=== PATIENT | male | born 1930 | race Caucasian/White ===

== ENCOUNTER → 2016-07-12 | Outpatient (CLI) | payer OTHER ==
[2016-07-12 12:14] LABS: BASO % 0.5 %; BASO ABS # 0.03 K/uL (0-0.2); COMPLETE YES; EOS % 7.6 %; HEMATOCRIT 35.2 % (42-52); IG% 0.3 %; LYMPH % 28.7 %; LYMPH ABS # 1.71 K/uL (1.2-3.4); MEAN CELL VOLUME 93.1 fL (80-100); MEAN CORPUSCULAR HEMOGLOBIN 32.8 pg (25-34); MEAN CORPUSCULAR HGB CONC 35.2 g/dl (32-36); MEAN PLATELET VOLUME 9.1 fL (7.4-10.4); MONO % 10.7 %; NEUT % 52.2 %; PLATELET COUNT 224 K/uL (130-400); RED BLOOD COUNT 3.78 M/uL (4.7-6.1); WHITE BLOOD COUNT 5.96 K/uL (4.8-10.8)
[2016-07-12 12:25] LABS: ALT/SGPT 17 U/L (12-78); BLOOD UREA NITROGEN 17 mg/dl (7-18); CARBON DIOXIDE 27 mmol/L (21-32); CHLORIDE 100 mmol/L (98-107); CHOLESTEROL 155 mg/dl (0-200); GLUCOSE 93 mg/dl (70-99); POTASSIUM 3.4 mmol/L (3.5-5.1); SODIUM 137 mmol/L (136-145); TRIGLYCERIDES 49 mg/dl (0-150); VERY LOW DENSITY LIPOPROT CALC 10 mg/dl
[2016-07-12 12:36] LABS: ALKALINE PHOSPHATASE 79 U/L (45-117); AST/SGOT 16 U/L (15-37); HDL CHOLESTEROL 79 mg/dl; LDL CHOLESTEROL CALCULATED 66 mg/dl
[2016-07-12 12:48] LABS: CALCIUM 9.9 mg/dl (8.5-10.1)
[2016-07-12 12:49] LABS: ESTIMATED AVERAGE GLUCOSE 120 mg/dl; HA1C FLAG Normal (Normal)
== END | disposition home or self-care (01) ==
LOC: C.LABBFT 08:32
PROVIDERS: ATTEND Internal Medicine Pulmonary Disease
DX: I10 Essential (primary) hypertension (principal); E11.9 Type 2 diabetes mellitus without complications

== ENCOUNTER → 2017-01-11 | Outpatient (CLI) | payer OTHER ==
[2017-01-11 12:17] LABS: BASO % 0.3 %; BASO ABS # 0.02 K/uL (0-0.2); COMPLETE YES; EOS % 5.9 %; HEMATOCRIT 33.7 % (42-52); IG% 0.2 %; LYMPH % 25.7 %; LYMPH ABS # 1.47 K/uL (1.2-3.4); MEAN CELL VOLUME 92.8 fL (80-100); MEAN CORPUSCULAR HEMOGLOBIN 33.1 pg (25-34); MEAN CORPUSCULAR HGB CONC 35.6 g/dl (32-36); MEAN PLATELET VOLUME 9.1 fL (7.4-10.4); MONO % 9.2 %; NEUT % 58.7 %; PLATELET COUNT 212 K/uL (130-400); RED BLOOD COUNT 3.63 M/uL (4.7-6.1); WHITE BLOOD COUNT 5.73 K/uL (4.8-10.8)
[2017-01-11 12:39] LABS: ALT/SGPT 18 U/L (12-78); AST/SGOT 20 U/L (15-37); BLOOD UREA NITROGEN 21 mg/dl (7-18); CALCIUM 9.6 mg/dl (8.5-10.1); CARBON DIOXIDE 27 mmol/L (21-32); CHLORIDE 100 mmol/L (98-107); CREATININE 1.21 mg/dl (0.60-1.40); GLUCOSE 122 mg/dl (70-99); POTASSIUM 3.3 mmol/L (3.5-5.1); SODIUM 135 mmol/L (136-145)
[2017-01-11 12:42] LABS: ALB/GLOB RATIO 0.8 (0.9-2); ALKALINE PHOSPHATASE 102 U/L (45-117)
[2017-01-11 12:48] LABS: ESTIMATED AVERAGE GLUCOSE 114 mg/dl; HA1C FLAG Normal (Normal)
== END | disposition home or self-care (01) ==
LOC: C.LABBFT 09:03
PROVIDERS: ATTEND Internal Medicine Pulmonary Disease
DX: I10 Essential (primary) hypertension (principal); E11.9 Type 2 diabetes mellitus without complications; M15.9 Polyosteoarthritis, unspecified; D64.9 Anemia, unspecified

== ENCOUNTER 2017-02-15 20:15 | Inpatient (IN) | payer OTHER ==
[~2017-02-15] VITALS: Ht 170.2 cm; Wt 89.1 kg
[2017-02-15] MEDS ORDERED: HYDROmorphone INJ 0.5 MG/0.5 ML SYR IV STA (20:41)
[2017-02-15] MEDS ORDERED: OPTIRAY 320 IV PRN (20:45)
[2017-02-15] MEDS ORDERED: VALS160T60 PO (21:12)
[2017-02-15] MEDS ORDERED: ASPI81TA28 PO (21:12)
[2017-02-15] MEDS ORDERED: CLR/5 PO (21:12)
[2017-02-15] MEDS ORDERED: GLC/500 PO (21:12)
[2017-02-15] MEDS ORDERED: GLIM1TAB2 PO (21:14)
--- NOTE | 2017-02-15 21:15 | DIAGNOSTIC IMAGING REPORT ---
CHEST ONE VIEW PORTABLE CLINICAL HISTORY: 86 years-old Male presenting with CHEST PAIN. TECHNIQUE: Portable upright AP view of the chest was obtained. COMPARISON: None. FINDINGS: Atherosclerosis of the aortic arch. Cardiac silhouette normal in size. Mild prominence of the abelardo, likely vascular. Reticular opacities at the right lung base. No pleural effusion or pneumothorax. Degenerative changes of the thoracic spine. Upper abdomen normal. IMPRESSION: 1. Reticular opacities at the right lung base most likely represents atelectasis. Differential considerations include aspiration. Electronically signed by: Nagi Ayon M.D. 02/15/2017 9:13 PM Dictated Date/Time: 02/15/2017 9:12 PM
[2017-02-15 21:18] LABS: HEMATOCRIT 32.7 % (42-52); HEMOGLOBIN 11.7 g/dL (14.0-18.0); MEAN CELL VOLUME 91.6 fL (80-100); MEAN CORPUSCULAR HEMOGLOBIN 32.8 pg (25-34); MEAN CORPUSCULAR HGB CONC 35.8 g/dl (32-36); MEAN PLATELET VOLUME 8.4 fL (7.4-10.4); PLATELET COUNT 197 K/uL (130-400); RED CELL DISTRIBUTION WIDTH CV 12.7 % (11.5-14.5); RED CELL DISTRIBUTION WIDTH SD 42.3 fL (36.4-46.3); WHITE BLOOD COUNT 8.73 K/uL (4.8-10.8)
--- NOTE | 2017-02-15 21:33 | EMERGENCY ROOM VISIT NOTE ---
History Report prepared by Donna: Annika Garcia Under the Supervision of: Dr. Sacha Toth M.D. First contact with patient: 20:34 Chief Complaint: ABDOMINAL PAIN Stated Complaint: RUQ abd pain Nursing Triage Summary: RUQ abdominal pain and bloating. "Had a gallbladder attack years ago". History of Present Illness The patient is an 86 year old male who presents to the Emergency Room with complaints of constant RUQ abdominal pain starting this evening. The pain started while he was eating a hamburger for dinner. He did not finish his dinner. He had noticed some abdominal bloating over the past few days. He also has pain in his back where his abdominal pain is located. He denies having any pain with deep breaths. He notes that he had a gallbladder attack 20 years ago which felt similar to his current abdominal pain. Source of History: patient Onset: this evening Position: abdomen (RUQ) Quality: other (pain) Timing: constant Associated Symptoms: + back pain Note: Pt reports abdominal bloating. Pt denies pain with deep breaths. Review of Systems See HPI for pertinent positives & negatives. A total of 10 systems reviewed and were otherwise negative. Past Medical & Surgical Medical Problems: (1) Diabetes Family History No pertinent family history stated. Social History Smoking Status: Former Smoker Marital Status: Occupation Status: retired Current/Historical Medications Scheduled Aspirin (Aspirin Ec), 81 MG PO DAILY Desloratadine (Clarinex), 5 MG PO DAILY Glimepiride (Glimepiride), 1 MG PO DAILY Metformin Hcl (Glucophage), 500 MG PO DAILY Valsartan/Hctz (Diovan Hct 160MG/25MG), 1 TAB PO DAILY Allergies Coded Allergies: No Known Allergies (Unverified , 02/15/17) Physical Exam Vital Signs Date Time Temp Pulse Resp B/P (MAP) Pulse Ox O2 Delivery O2 Flow Rate FiO2 02/16/17 00:22 36.6 83 18 174/72 94 02/15/17 22:37 83 18 174/72 94 Room Air 02/15/17 21:21 73 02/15/17 20:43 99 Room Air 02/15/17 20:43 99 Room Air 02/15/17 20:26 36.6 89 18 175/93 97 Room Air Physical Exam GENERAL: Patient is a healthy-appearing well-nourished male HEAD: Normocephalic atraumatic EYES: Ocular movements intact pupils equal and react to light OROPHARYNX mucous membranes are moist no exudates present no erythema or edema present NECK: Supple no nuchal rigidity CHEST: Good equal expansion LUNGS: Clear and equal to auscultation CARDIAC: Normal S1 and S2 ABDOMEN: Soft, tender to the RUQ, no guarding BACK: No CVA tenderness EXTREMITIES: No pain upon palpation normal muscle strength in all groups no clubbing cyanosis or edema NEURO: Patient is following commands and answering questions appropriately. Alert and oriented x3 Cranial Nerves 2-12 grossly intact Medical Decision & Procedures ER Provider Diagnostic Interpretation: X-ray results as stated below per interpretation by me and the radiologist. Radiology results as stated below per my review and radiologist interpretation: CHEST ONE VIEW PORTABLE CLINICAL HISTORY: 86 years-old Male presenting with CHEST PAIN. TECHNIQUE: Portable upright AP view of the chest was obtained. COMPARISON: None. FINDINGS: Atherosclerosis of the aortic arch. Cardiac silhouette normal in size. Mild prominence of the abelardo, likely vascular. Reticular opacities at the right lung base. No pleural effusion or pneumothorax. Degenerative changes of the thoracic spine. Upper abdomen normal. IMPRESSION: 1. Reticular opacities at the right lung base most likely represents atelectasis. Differential considerations include aspiration. Electronically signed by: Nagi Ayon M.D. 02/15/2017 9:13 PM Dictated Date/Time: 02/15/2017 9:12 PM ABD/PELVIS IV CONTRAST ONLY CLINICAL HISTORY: 86 years-old Male presenting with Pt c/o RUQ abd pain. TECHNIQUE: Multidetector CT of the abdomen and pelvis was performed after the administration of intravenous contrast. IV contrast: 94 mL of Optiray 320. A dose lowering technique was used consistent with the principles of ALARA (as low as reasonably achievable). COMPARISON: Ultrasound of the abdomen performed earlier the same day. CT DOSE (mGy.cm): The estimated cumulative dose is 611.81 mGy.cm. FINDINGS: Agriculture Mechanic topogram: Unremarkable. Lung bases: Minimal basilar opacities. No pleural effusion or pneumothorax. Multichamber enlargement of the heart. Coronary artery and aortic valve calcification. No pericardial or pleural effusion. Liver: Normal morphology. Several hypodensities in the liver the largest in the medial left hepatic lobe, indeterminate but likely hepatic cysts. Patent hepatic vasculature. Biliary: No intrahepatic or extrahepatic biliary ductal dilatation. Gallbladder contains gallstones. Pancreas: Mild parenchymal atrophy. Spleen: Calcifications in the spleen suggest prior granulomatous infection. Adrenal glands: Normal. Kidneys and ureters: Well-defined hypodensity in the right kidney likely simple cyst. No hydronephrosis. Few small parapelvic cysts suggested in the left kidney. Ureters normal. No nephrolithiasis. Bladder: Mild circumferential bladder wall thickening likely suggesting chronic outlet obstruction. Few small diverticula suggested at the dome. Pelvic organs: Prostate enlargement likely secondary to benign prostatic hyperplasia. Bowel: Diverticulosis of the sigmoid colon without pericolonic fat infiltration. Small bowel is mildly dilated in the upper abdomen. Evidence of pneumatosis in a small bowel in the upper abdomen (example series 3 image 212). A significantly dilated loop of small bowel in the left upper quadrant measures 3.7 cm in diameter and demonstrates pneumatosis (series 3 image 174). No bowel obstruction. Peritoneal cavity: Multiple tiny foci of free intraperitoneal gas in the upper quadrants. No free fluid. Lymph nodes: No enlarged lymph nodes in the abdomen or pelvis. Vasculature: Atherosclerosis of the normal caliber abdominal aorta. No filling defect within the superior mesenteric artery or celiac iliac artery. The inferior mesenteric artery is also patent. IVC patent. Abdominal wall: Normal. Musculoskeletal: Degenerative changes of the spine. Degenerative changes of the pubic symphysis and sacroiliac joints also noted. IMPRESSION: 1. Pneumatosis of small bowel in the upper abdomen and left upper quadrant with numerous tiny foci of pneumoperitoneum in the upper abdomen. The overall length of involved small bowel is difficult to quantify but appears somewhat limited. The presence of pneumatosis as well as free gas is highly suspicious for ischemic bowel. No gross evidence of and embolus within the superior mesenteric artery. 2. Atherosclerosis. 3. Cardiomegaly. These findings were discussed with Dr. Toth by Dr. Ayon at 10:30 PM on 02/15/2017. Electronically signed by: Nagi Ayon M.D. 02/15/2017 10:36 PM Dictated Date/Time: 02/15/2017 10:25 PM ABDOMEN LIMITED (US) CLINICAL HISTORY: 86 years-old Male presenting with Pt c/o RUQ abd pain . TECHNIQUE: Real-time grayscale and limited color Doppler ultrasound imaging of the abdomen limited to the right upper quadrant was performed. COMPARISON: None. FINDINGS: Pancreas: Largely obscured due to overlying bowel gas. Liver: Normal echogenicity and echotexture. The liver measures 14.3 cm in maximal sagittal dimension. 2.1 cm anechoic lesion in the left hepatic lobe, likely hepatic cyst. Main portal vein patent with normal directional flow. Biliary: No intrahepatic biliary ductal dilatation. Common bile duct measures up to 4 mm in diameter. Gallbladder: Gallstones. Without evidence of gallbladder distention, wall thickening, or pericholecystic fluid or inflammatory change. Right kidney: Simple cysts noted. No hydronephrosis. Ascites: None. IMPRESSION: Cholelithiasis. No biliary ductal dilatation or evidence of cholecystitis. Electronically signed by: Nagi Ayon M.D. 02/15/2017 10:06 PM Dictated Date/Time: 02/15/2017 10:05 PM Laboratory Results 02/15/17 21:05 Red Blood Count 3.57, Mean Corpuscular Volume 91.6, Mean Corpuscular Hemoglobin 32.8, Mean Corpuscular Hemoglobin Concent 35.8, Mean Platelet Volume 8.4, Neutrophils (%) (Auto) 76.2, Lymphocytes (%) (Auto) 14.7, Monocytes (%) (Auto) 6.4, Eosinophils (%) (Auto) 2.2, Basophils (%) (Auto) 0.2, Neutrophils # (Auto) 6.65, Lymphocytes # (Auto) 1.28, Monocytes # (Auto) 0.56, Eosinophils # (Auto) 0.19, Basophils # (Auto) 0.02 02/15/17 21:05 Test 02/15/17 21:05 02/15/17 23:10 White Blood Count 8.73 K/uL (4.8-10.8) Red Blood Count 3.57 M/uL (4.7-6.1) Hemoglobin 11.7 g/dL (14.0-18.0) Hematocrit 32.7 % (42-52) Mean Corpuscular Volume 91.6 fL (80-100) Mean Corpuscular Hemoglobin 32.8 pg (25-34) Mean Corpuscular Hemoglobin Concent 35.8 g/dl (32-36) Platelet Count 197 K/uL (130-400) Mean Platelet Volume 8.4 fL (7.4-10.4) Neutrophils (%) (Auto) 76.2 % Lymphocytes (%) (Auto) 14.7 % Monocytes (%) (Auto) 6.4 % Eosinophils (%) (Auto) 2.2 % Basophils (%) (Auto) 0.2 % Neutrophils # (Auto) 6.65 K/uL (1.4-6.5) Lymphocytes # (Auto) 1.28 K/uL (1.2-3.4) Monocytes # (Auto) 0.56 K/uL (0.11-0.59) Eosinophils # (Auto) 0.19 K/uL (0-0.5) Basophils # (Auto) 0.02 K/uL (0-0.2) RDW Standard Deviation 42.3 fL (36.4-46.3) RDW Coefficient of Variation 12.7 % (11.5-14.5) Immature Granulocyte % (Auto) 0.3 % Immature Granulocyte # (Auto) 0.03 K/uL (0.00-0.02) Red Blood Cell Morphology Unremarkable Prothrombin Time 10.4 SECONDS (9.0-12.0) Prothromb Time International Ratio 1.0 (0.9-1.1) Activated Partial Thromboplast Time 27.0 SECONDS (21.0-31.0) Partial Thromboplastin Ratio 1.0 Anion Gap 11.0 mmol/L (3-11) Est Creatinine Clear Calc Drug Dose 49.9 ml/min Estimated GFR () 68.1 Estimated GFR (Non- 58.7 BUN/Creatinine Ratio 14.3 (10-20) Calcium Level 9.9 mg/dl (8.5-10.1) Total Bilirubin 0.4 mg/dl (0.2-1) Direct Bilirubin 0.1 mg/dl (0-0.2) Aspartate Amino Transf (AST/SGOT) 15 U/L (15-37) Alanine Aminotransferase (ALT/SGPT) 17 U/L (12-78) Alkaline Phosphatase 89 U/L (45-117) Total Creatine Kinase 48 U/L (39-308) Creatine Kinase MB 1.8 ng/ml (0.5-3.6) Creatine Kinase MB Ratio 3.8 (0-3.0) Troponin I < 0.015 ng/ml (0-0.045) Total Protein 7.4 gm/dl (6.4-8.2) Albumin 3.6 gm/dl (3.4-5.0) Lipase 210 U/L (73-393) Lactic Acid Level 2.6 mmol/L (0.4-2.0) Labs reviewed by ED physician. Medications Administered Medications (Trade) Dose Ordered Sig/Damaso Route Start Time Stop Time Status Last Admin Dose Admin Hydromorphone HCl (Dilaudid Inj) 0.5 mg NOW STAT IV 02/15/17 20:41 02/15/17 20:42 DC 02/15/17 21:10 0.5 MG Potassium Chloride (Janina Ciel Elix) 40 meq NOW STAT PO 02/15/17 21:41 02/15/17 21:42 DC 02/15/17 22:36 40 MEQ Ondansetron HCl (Zofran Inj) 4 mg NOW STAT IV 02/15/17 21:41 02/15/17 21:42 DC 02/15/17 22:35 4 MG Vancomycin HCl (Vancomycin 1gm/ 270ml Nss) 1 gm NOW STAT IV 02/15/17 22:34 02/15/17 22:37 DC 02/15/17 23:34 1 GM Potassium Chloride (Janina Ciel Elix) 40 meq NOW STAT PO 02/15/17 23:10 02/15/17 23:11 DC 02/15/17 23:34 40 MEQ ECG Indication: abdominal pain Rate (beats per minute): 78 Rhythm: sinus rhythm Findings: 1st degree AV block, no acute ischemic change, other (old lateral infarct) ED Course 2036: Past medical records reviewed. The patient was evaluated in room A12B. A complete history and physical examination was performed. 2040: Dilaudid Inj 0.5 mg IV. 2140: Zofran Inj 4 mg IV, Potassium Chloride 40 meq PO. 2233: Vancomycin HCl 1 gm IV, Clindamycin Phosphate 600 mg IV, Cefepime HCl 2000 mg/Dextrose 122 ml @ 200 mls/hr IV. 2238: I discussed the patient's case with Dr. Delacruz [facility] general surgery. He will evaluate the patient. 2242: I reevaluated the patient. I updated him on the results and treatment plan. He verbalized agreement of the plan. 0: Potassium Chloride 40 meq PO. 2348: I discussed the patient's case with Oniel Camejosan [facility] hospitalist. He will evaluate the patient for further management. 2350: Upon reexamination the patient is stable. I discussed results and treatment plan with the patient. He verbalizes agreement and understanding. The patient will be evaluated for further management. Medical Decision Differential diagnosis: Etiologies such as appendicitis, diverticulitis, PUD, biliary pathology, UTI, pancreatitis, obstruction, mesenteric ischemia, aortic pathology, infections, inflammatory bowel disease, renal colic, as well as others were entertained. This is an 86-year-old male who presents emergency department complaining of epigastric pain. The patient was given Dilaudid here in the emergency department. He was sent for an ultrasound of his gallbladder which showed gallstones. He was sent for CAT scan of the abdomen and pelvis which was concerning for pneumatosis. Based on this finding I did discuss the case with surgeon who asked that a lactic acid be obtained. Patient's lactate was found to be 2.6. Based on the CAT scan findings the patient was placed on antibiotics including cefepime and clindamycin and vancomycin. Surgeon made the decision to bring the patient to the operating room. Medication Reconcilliation Current Medication List: was personally reviewed by me Blood Pressure Screening Patient's blood pressure: Elevated blood pressure Blood pressure disposition: Referred to PCP Consults Time Called: 2233 Consulting Physician: Ena Camejo general surgery Returned Call: [phone] I discussed the patient's case with him. He will evaluate the patient. Additional Consults: Time Called: 2344 Consulted Physician: Alyssa Camejo hospitalist Returned Call: [phone] Additional Comments: I discussed the patient's case with him. He will evaluate the patient for further management. Impression Primary Impression: Abdominal pain Critical Care I have personally spent greater than 30 minutes of critical care time in the direct management of this patient. This includes bedside care, interpretation of diagnostic studies, and testing, discussion with consultants, patient, and family members, and other required patient management activities. This 30 minutes is in excess of all separately billable procedures. Scribe Attestation The scribe's documentation has been prepared under my direction and personally reviewed by me in its entirety. I confirm that the note above accurately reflects all work, treatment, procedures, and medical decision making performed by me. Departure Information Dispostion Being Evaluated By Surgeon Merlin Sood M.D. (PCP) Patient Instructions [facility] Problem Qualifiers Primary Impression: Abdominal pain Abdominal location: epigastric Qualified Codes: R10.13 - Epigastric pain
[2017-02-15 21:36] LABS: ALBUMIN 3.6 gm/dl (3.4-5.0); ALT/SGPT 17 U/L (12-78); BLOOD UREA NITROGEN 16 mg/dl (7-18); CALCIUM 9.9 mg/dl (8.5-10.1); CARBON DIOXIDE 25 mmol/L (21-32); CREATININE 1.14 mg/dl (0.60-1.40); GLUCOSE 132 mg/dl (70-99); LIPASE 210 U/L (73-393); POTASSIUM 2.9 mmol/L (3.5-5.1); SODIUM 133 mmol/L (136-145)
[2017-02-15] MEDS ORDERED: POTASSIUM CHLORIDE 20 MEQ/15 ML UDC PO STA ×2 (21:41→23:10)
[2017-02-15] MEDS ORDERED: ONDANSETRON INJ 2 MG/ML 2 ML VIAL IV STA (21:41)
[2017-02-15 21:42] LABS: ALKALINE PHOSPHATASE 89 U/L (45-117); AST/SGOT 15 U/L (15-37); CKMB 1.8 ng/ml (0.5-3.6); TOTAL PROTEIN 7.4 gm/dl (6.4-8.2)
[2017-02-15 22:05] LABS: BASO % 0.2 %; BASO ABS # 0.02 K/uL (0-0.2); EOS % 2.2 %; EOS ABS # 0.19 K/uL (0-0.5); IG# 0.03 K/uL (0.00-0.02); LYMPH % 14.7 %; LYMPH ABS # 1.28 K/uL (1.2-3.4); MONO % 6.4 %; MONO ABS # 0.56 K/uL (0.11-0.59); NEUT % 76.2 %; NEUT ABS # 6.65 K/uL (1.4-6.5)
--- NOTE | 2017-02-15 22:08 | DIAGNOSTIC IMAGING REPORT ---
ABDOMEN LIMITED (US) CLINICAL HISTORY: 86 years-old Male presenting with Pt c/o RUQ abd pain . TECHNIQUE: Real-time grayscale and limited color Doppler ultrasound imaging of the abdomen limited to the right upper quadrant was performed. COMPARISON: None. FINDINGS: Pancreas: Largely obscured due to overlying bowel gas. Liver: Normal echogenicity and echotexture. The liver measures 14.3 cm in maximal sagittal dimension. 2.1 cm anechoic lesion in the left hepatic lobe, likely hepatic cyst. Main portal vein patent with normal directional flow. Biliary: No intrahepatic biliary ductal dilatation. Common bile duct measures up to 4 mm in diameter. Gallbladder: Gallstones. Without evidence of gallbladder distention, wall thickening, or pericholecystic fluid or inflammatory change. Right kidney: Simple cysts noted. No hydronephrosis. Ascites: None. IMPRESSION: Cholelithiasis. No biliary ductal dilatation or evidence of cholecystitis. Electronically signed by: Nagi Ayon M.D. 02/15/2017 10:06 PM Dictated Date/Time: 02/15/2017 10:05 PM
[2017-02-15] MEDS ORDERED: CEFEPIME IV 2,000 MG in DEXTROSE 5% 100ML 100 ML IV STA (22:34)
[2017-02-15] MEDS ORDERED: VANCOMYCIN 1GM/270ML NSS IV STA (22:34)
[2017-02-15] MEDS ORDERED: CLINDAMYCIN 600 MG/54 ML D5W IV STA (22:34)
--- NOTE | 2017-02-15 22:38 | DIAGNOSTIC IMAGING REPORT ---
ABD/PELVIS IV CONTRAST ONLY CLINICAL HISTORY: 86 years-old Male presenting with Pt c/o RUQ abd pain. TECHNIQUE: Multidetector CT of the abdomen and pelvis was performed after the administration of intravenous contrast. IV contrast: 94 mL of Optiray 320. A dose lowering technique was used consistent with the principles of ALARA (as low as reasonably achievable). COMPARISON: Ultrasound of the abdomen performed earlier the same day. CT DOSE (mGy.cm): The estimated cumulative dose is 611.81 mGy.cm. FINDINGS: Firer Low Pressure topogram: Unremarkable. Lung bases: Minimal basilar opacities. No pleural effusion or pneumothorax. Multichamber enlargement of the heart. Coronary artery and aortic valve calcification. No pericardial or pleural effusion. Liver: Normal morphology. Several hypodensities in the liver the largest in the medial left hepatic lobe, indeterminate but likely hepatic cysts. Patent hepatic vasculature. Biliary: No intrahepatic or extrahepatic biliary ductal dilatation. Gallbladder contains gallstones. Pancreas: Mild parenchymal atrophy. Spleen: Calcifications in the spleen suggest prior granulomatous infection. Adrenal glands: Normal. Kidneys and ureters: Well-defined hypodensity in the right kidney likely simple cyst. No hydronephrosis. Few small parapelvic cysts suggested in the left kidney. Ureters normal. No nephrolithiasis. Bladder: Mild circumferential bladder wall thickening likely suggesting chronic outlet obstruction. Few small diverticula suggested at the dome. Pelvic organs: Prostate enlargement likely secondary to benign prostatic hyperplasia. Bowel: Diverticulosis of the sigmoid colon without pericolonic fat infiltration. Small bowel is mildly dilated in the upper abdomen. Evidence of pneumatosis in a small bowel in the upper abdomen (example series 3 image 212). A significantly dilated loop of small bowel in the left upper quadrant measures 3.7 cm in diameter and demonstrates pneumatosis (series 3 image 174). No bowel obstruction. Peritoneal cavity: Multiple tiny foci of free intraperitoneal gas in the upper quadrants. No free fluid. Lymph nodes: No enlarged lymph nodes in the abdomen or pelvis. Vasculature: Atherosclerosis of the normal caliber abdominal aorta. No filling defect within the superior mesenteric artery or celiac iliac artery. The inferior mesenteric artery is also patent. IVC patent. Abdominal wall: Normal. Musculoskeletal: Degenerative changes of the spine. Degenerative changes of the pubic symphysis and sacroiliac joints also noted. IMPRESSION: 1. Pneumatosis of small bowel in the upper abdomen and left upper quadrant with numerous tiny foci of pneumoperitoneum in the upper abdomen. The overall length of involved small bowel is difficult to quantify but appears somewhat limited. The presence of pneumatosis as well as free gas is highly suspicious for ischemic bowel. No gross evidence of and embolus within the superior mesenteric artery. 2. Atherosclerosis. 3. Cardiomegaly. These findings were discussed with Dr. Toth by Dr. Ayon at 10:30 PM on 02/15/2017. Electronically signed by: Nagi Ayon M.D. 02/15/2017 10:36 PM Dictated Date/Time: 02/15/2017 10:25 PM
[2017-02-16] VITALS (12 sets, daily range): BP systolic 113–168; BP diastolic 69–83; PULSE 50–87; TEMP 36.2–37.2; O2SAT 93–97; Ht 170.2 cm; Wt 89.1 kg
[2017-02-16] MEDS ORDERED: BUPIVACAINE 0.5 % 5 MG/1 ML MPF 30ML VIAL ONE (00:11)
[2017-02-16] MEDS ORDERED: BACITRACIN OINT 15 GM TUBE ONE (00:11)
[2017-02-16] MEDS ORDERED: LIDOCAINE HCL 1% 20 ML VIAL ONE (00:11)
[2017-02-16] MEDS ORDERED: LIDOCAINE HCL 2% 2 ML VIAL (20MG/ML) ONE (00:36)
[2017-02-16] MEDS ORDERED: PROPOFOL IV EMULSION 10 MG/ML 20 ML VIAL IV ONE (00:36)
[2017-02-16] MEDS ORDERED: ROCURONIUM BROMID 50MG/5ML SYR ONE (00:37)
[2017-02-16] MEDS ORDERED: FENTANYL CITRATE INJ 50 MCG/1 ML 2 ML VIAL ONE (00:38)
--- NOTE | 2017-02-16 00:48 | History & Physical Bridge Note ---
H&P Re-Evaluation Bridge Note: I have examined the patient, reviewed the History & Physical and in the interval since the performance of the History & Physical I have noted the following changes of clinical significance: No changes noted
--- NOTE | 2017-02-16 00:51 | Surgery Consultation ---
Consultation Date of Consultation: Feb 15, 2017. Attending Physician: History of Present Illness The patient is an 86 year old male who presents to the Emergency Room with complaints of constant RUQ abdominal pain starting this evening. The pain started while he was eating a hamburger for dinner. He did not finish his dinner. He had noticed some abdominal bloating over the past few days. He also has pain in his back where his abdominal pain is located. He denies having any pain with deep breaths. He notes that he had a gallbladder attack 20 years ago which felt similar to his current abdominal pain. I saw pt at ER, I reviewed pt's H/P with pt and his family members, , daughter, now pt feels better, but pt is still have some RUQ pain, no nausea, no vomiting, pt denies diarrhea, no bloody stool, no fever, pt denies anders- umbilical pain. Social History Smoking Status: Former Smoker Smokeless Tobacco Use: No Alcohol Use: occasionally Drug Use: none Marital Status: Occupation Status: retired Allergies Coded Allergies: No Known Allergies (Unverified , 02/15/17) Home Medications Scheduled Aspirin (Aspirin Ec), 81 MG PO DAILY Desloratadine (Clarinex), 5 MG PO DAILY Glimepiride (Glimepiride), 1 MG PO DAILY Metformin Hcl (Glucophage), 500 MG PO DAILY Valsartan/Hctz (Diovan Hct 160MG/25MG), 1 TAB PO DAILY Current Inpatient Medications Current Inpatient Medications Medications (Trade) Dose Ordered Sig/Damaso Route Start Time Stop Time Status Last Admin Dose Admin Ioversol (Optiray 320) 100 ml UD PRN IV 02/15/17 20:45 02/19/17 20:44 Review of Systems Constitutional: No fever, No chills, No sweats, No weight loss, No weakness, No fatigue, No problem reported Eyes: No worsening of vision, No eye pain, No redness, No discharge, No diplopia, No problem reported ENT: No hearing loss, No unusual epistaxis, No nasal symptoms, No sore throat, No tinnitus, No dental problems, No trouble swallowing, No problem reported Respiratory: No cough, No sputum, No wheezing, No shortness of breath, No dyspnea on exertion, No dyspnea at rest, No hemoptysis, No problem reported Cardiovascular: + problem reported (HTN), No chest pain, No orthopnea, No PND, No edema, No claudication, No palpitations Abdomen: + pain, + nausea, + problem reported (gallstones) Musculoskeletal: No joint pain, No muscle pain, No swelling, No calf pain, No problem reported Genitourinary - Male: No hematuria, No dysuria, No urinary frequency, No urinary urgency, No urinary hesitancy, No urinary retention, No urinary incontinence, No penile discharge, No lesions, No impotence, No problem reported Neurologic: No memory loss, No paralysis, No weakness, No numbness/tingling, No vertigo, No balance problems, No problem reported Psychiatric: No depression symptoms, No anhedonism, No anxiety, No insomnia, No substance abuse, No problem reported Endocrine: No fatigue, No excessive thirst, No excessive urination, No problem reported Hematologic / Lymphatic: + problem reported (DM), No abnormal bleeding/bruising , No clotting problems, No swollen lymph nodes, No night sweats Physical Exam Date Time Temp Pulse Resp B/P (MAP) Pulse Ox O2 Delivery O2 Flow Rate FiO2 02/15/17 22:37 83 18 174/72 94 Room Air 02/15/17 21:21 73 02/15/17 20:43 99 Room Air 02/15/17 20:43 99 Room Air 02/15/17 20:26 36.6 89 18 175/93 97 Room Air General Appearance: WD/WN, no apparent distress Head: normocephalic Eyes: normal inspection ENT: normal ENT inspection Neck: supple, no JVD Respiratory/Chest: chest non-tender, lungs clear, normal breath sounds, no respiratory distress Cardiovascular: regular rate, rhythm, no edema, no gallop, no JVD, no murmur Abdomen/GI: normal bowel sounds, non tender, soft, no organomegaly, no pulsatile mass, + distended Extremities/Musculoskelatal: normal inspection, no calf tenderness, normal capillary refill Neurologic/Psych: no motor/sensory deficits, alert, normal mood/affect Skin: normal color, warm/dry, no rash Lymphatic: no adenopathy Laboratory Results Last 24 Hours Test 02/15/17 21:05 02/15/17 22:41 02/15/17 23:10 White Blood Count 8.73 K/uL Red Blood Count 3.57 M/uL Hemoglobin 11.7 g/dL Hematocrit 32.7 % Mean Corpuscular Volume 91.6 fL Mean Corpuscular Hemoglobin 32.8 pg Mean Corpuscular Hemoglobin Concent 35.8 g/dl Platelet Count 197 K/uL Mean Platelet Volume 8.4 fL Neutrophils (%) (Auto) 76.2 % Lymphocytes (%) (Auto) 14.7 % Monocytes (%) (Auto) 6.4 % Eosinophils (%) (Auto) 2.2 % Basophils (%) (Auto) 0.2 % Neutrophils # (Auto) 6.65 K/uL Lymphocytes # (Auto) 1.28 K/uL Monocytes # (Auto) 0.56 K/uL Eosinophils # (Auto) 0.19 K/uL Basophils # (Auto) 0.02 K/uL RDW Standard Deviation 42.3 fL RDW Coefficient of Variation 12.7 % Immature Granulocyte % (Auto) 0.3 % Immature Granulocyte # (Auto) 0.03 K/uL Red Blood Cell Morphology Unremarkable Sodium Level 133 mmol/L Potassium Level 2.9 mmol/L Chloride Level 97 mmol/L Carbon Dioxide Level 25 mmol/L Anion Gap 11.0 mmol/L Blood Urea Nitrogen 16 mg/dl Creatinine 1.14 mg/dl Est Creatinine Clear Calc Drug Dose 49.9 ml/min Estimated GFR () 68.1 Estimated GFR (Non- 58.7 BUN/Creatinine Ratio 14.3 Random Glucose 132 mg/dl Calcium Level 9.9 mg/dl Total Bilirubin 0.4 mg/dl Direct Bilirubin 0.1 mg/dl Aspartate Amino Transf (AST/SGOT) 15 U/L Alanine Aminotransferase (ALT/SGPT) 17 U/L Alkaline Phosphatase 89 U/L Total Creatine Kinase 48 U/L Creatine Kinase MB 1.8 ng/ml Creatine Kinase MB Ratio 3.8 Troponin I < 0.015 ng/ml Total Protein 7.4 gm/dl Albumin 3.6 gm/dl Lipase 210 U/L Assessment & Plan ABDOMEN LIMITED (US) CLINICAL HISTORY: 86 years-old Male presenting with Pt c/o RUQ abd pain . TECHNIQUE: Real-time grayscale and limited color Doppler ultrasound imaging of the abdomen limited to the right upper quadrant was performed. COMPARISON: None. FINDINGS: Pancreas: Largely obscured due to overlying bowel gas. Liver: Normal echogenicity and echotexture. The liver measures 14.3 cm in maximal sagittal dimension. 2.1 cm anechoic lesion in the left hepatic lobe, likely hepatic cyst. Main portal vein patent with normal directional flow. Biliary: No intrahepatic biliary ductal dilatation. Common bile duct measures up to 4 mm in diameter. Gallbladder: Gallstones. Without evidence of gallbladder distention, wall thickening, or pericholecystic fluid or inflammatory change. Right kidney: Simple cysts noted. No hydronephrosis. Ascites: None. IMPRESSION: Cholelithiasis. No biliary ductal dilatation or evidence of cholecystitis. ABD/PELVIS IV CONTRAST ONLY CLINICAL HISTORY: 86 years-old Male presenting with Pt c/o RUQ abd pain. TECHNIQUE: Multidetector CT of the abdomen and pelvis was performed after the administration of intravenous contrast. IV contrast: 94 mL of Optiray 320. A dose lowering technique was used consistent with the principles of ALARA (as low as reasonably achievable). COMPARISON: Ultrasound of the abdomen performed earlier the same day. CT DOSE (mGy.cm): The estimated cumulative dose is 611.81 mGy.cm. FINDINGS: [employer] topogram: Unremarkable. Lung bases: Minimal basilar opacities. No pleural effusion or pneumothorax. Multichamber enlargement of the heart. Coronary artery and aortic valve calcification. No pericardial or pleural effusion. Liver: Normal morphology. Several hypodensities in the liver the largest in the medial left hepatic lobe, indeterminate but likely hepatic cysts. Patent hepatic vasculature. Biliary: No intrahepatic or extrahepatic biliary ductal dilatation. Gallbladder contains gallstones. Pancreas: Mild parenchymal atrophy. Spleen: Calcifications in the spleen suggest prior granulomatous infection. Adrenal glands: Normal. Kidneys and ureters: Well-defined hypodensity in the right kidney likely simple cyst. No hydronephrosis. Few small parapelvic cysts suggested in the left kidney. Ureters normal. No nephrolithiasis. Bladder: Mild circumferential bladder wall thickening likely suggesting chronic outlet obstruction. Few small diverticula suggested at the dome. Pelvic organs: Prostate enlargement likely secondary to benign prostatic hyperplasia. Bowel: Diverticulosis of the sigmoid colon without pericolonic fat infiltration. Small bowel is mildly dilated in the upper abdomen. Evidence of pneumatosis in a small bowel in the upper abdomen (example series 3 image 212). A significantly dilated loop of small bowel in the left upper quadrant measures 3.7 cm in diameter and demonstrates pneumatosis (series 3 image 174). No bowel obstruction. Peritoneal cavity: Multiple tiny foci of free intraperitoneal gas in the upper quadrants. No free fluid. Lymph nodes: No enlarged lymph nodes in the abdomen or pelvis. Vasculature: Atherosclerosis of the normal caliber abdominal aorta. No filling defect within the superior mesenteric artery or celiac iliac artery. The inferior mesenteric artery is also patent. IVC patent. Abdominal wall: Normal. Musculoskeletal: Degenerative changes of the spine. Degenerative changes of the pubic symphysis and sacroiliac joints also noted. IMPRESSION: 1. Pneumatosis of small bowel in the upper abdomen and left upper quadrant with numerous tiny foci of pneumoperitoneum in the upper abdomen. The overall length of involved small bowel is difficult to quantify but appears somewhat limited. The presence of pneumatosis as well as free gas is highly suspicious for ischemic bowel. No gross evidence of and embolus within the superior mesenteric artery. 2. Atherosclerosis. 3. Cardiomegaly. Assessment: pt is a 86 year old male who presents with 5 hours history RUQ pain , CT scan report see above. IMP: ischemic small bowel? but patent SMA, biliary pain? lactic acid is pending, if lactic acid is going up, it is indication for surgery intervention, diagnostic laparoscopy, possible open, cholecystectomy, resection bowel . D/W benefits, risks and alternatives of the procedure, the risks -infection, bleeding, injury CBD, short bowel syndrome, stoma, CA, DVT, stroke, , They understood, They agree with the plan, I answered all questions. LACTIC ACID IS 2.6,
[2017-02-16] MEDS ORDERED: ONDANSETRON INJ 2 MG/ML 2 ML VIAL IV PRN ×2 (02:45→03:30)
[2017-02-16] MEDS ORDERED: HYDROmorphone INJ 2 MG/ML SYR/VIAL IV PRN (02:45)
[2017-02-16] MEDS ORDERED: EpHEDrine SULFATE INJ 50 MG/ML AMP IV PRN (02:45)
[2017-02-16] MEDS ORDERED: PHENYLEPHRINE 100MCG/ML 5ML SYR IV PRN (02:45)
[2017-02-16] MEDS ORDERED: ATROPINE SULFATE 0.1 MG/ML 5ML SYR IV PRN (02:45)
[2017-02-16] MEDS ORDERED: NEOSTIGMINE METHYLSULFATE 5 MG/5 ML SYR ONE (03:18)
[2017-02-16] MEDS ORDERED: GLYCOPYRROLATE INJ 0.2 MG/ML VIAL ONE (03:19)
--- NOTE | 2017-02-16 03:28 | [facility] Post Operative Brief Note ---
Immediate Operative Summary Operative Date Feb 16, 2017. Pre-Operative Diagnosis Ischemic bowel Post-Operative Diagnosis Small bowel Diverticulosis Procedure(s) Performed Diagnostic laproscopy, Explortory Laparotomy Surgeon Dr. Delacruz Wood Miller Surgeon(s) windows deployment technician Estimated Blood Loss 5 ml Findings multiple small bowel diverticulosis Fluids (cc crystalloids) 500ml Specimens None per surgeon Drains none Anesthesia general Complication(s) None Disposition Recovery Room / PACU
[2017-02-16] MEDS ORDERED: OXYCODONE/ACETAMINOPHEN 5-325 TAB PO PRN (03:30)
[2017-02-16] MEDS ORDERED: ACETAMINOPHEN 325 MG TAB PO PRN (03:30)
[2017-02-16] MEDS ORDERED: HYDROmorphone INJ 1 MG/ML SYR IV PRN (03:30)
[2017-02-16] MEDS ORDERED: HYDROmorphone INJ 2 MG/ML SYR/VIAL ONE (03:43)
--- NOTE | 2017-02-16 03:46 | Anesthesiology Progress Note ---
Anesthesia Post Op Note Date & Time Feb 16, 2017 at 03:46 Vital Signs Pain Intensity: 0 Vital Signs Past 12 Hours Date Time Temp Pulse Resp B/P (MAP) Pulse Ox O2 Delivery O2 Flow Rate FiO2 02/16/17 00:22 36.6 83 18 174/72 94 02/15/17 22:37 83 18 174/72 94 Room Air 02/15/17 21:21 73 02/15/17 20:43 99 Room Air 02/15/17 20:43 99 Room Air 02/15/17 20:26 36.6 89 18 175/93 97 Room Air Notes Mental Status: alert / awake / arousable, participated in evaluation Pt Amnestic to Procedure: Yes Nausea / Vomiting: adequately controlled Pain: adequately controlled Airway Patency, RR, SpO2: stable & adequate BP & HR: stable & adequate Hydration State: stable & adequate Anesthetic Complications: no major complications apparent
[2017-02-16] MEDS ORDERED: COUGH DROP (SUGAR FREE) LOZ 24 LOZ/1 BOX PO PRN (05:45)
[2017-02-16] MEDS: D5W AND 1/2NSS + 20MEQ KCL 1,000 ML IV SCH ×2 (05:54→19:21)
[2017-02-16] MEDS: METRONIDAZOLE / NSS 500 MG in PREMIXED NSS 0 ML IV SCH ×2 (05:55→13:18)
[2017-02-16] MEDS: CIPROFLOXACIN / D5W 400 MG in PREMIXED IN D5W 200 ML IV SCH ×2 (05:55→17:55)
--- NOTE | 2017-02-16 07:45 | OPERATIVE REPORT ---
DATE OF OPERATION: 02/16/2017 PREOPERATIVE DIAGNOSIS: Ischemia bowel. POSTOPERATIVE DIAGNOSIS: Multiple small bowel diverticulosis. PROCEDURE: Laparoscopic exploratory laparotomy. SURGEON: Dr. Alejandro Delacruz. ANESTHESIA: General. ESTIMATED BLOOD LOSS: About 5 mL. FINDINGS: Multiple small bowel diverticulosis. COMPLICATIONS: None. INDICATIONS FOR THE PROCEDURE: This is an 86-year-old gentleman who presented to the ED with 5 hours history of right upper quadrant pain. The patient had a CT scan done and the CT scan diagnosis ischemia small bowel, and also the patient's lactic acid 0.6. We recommended to do the diagnostic laparoscopy, possible open, possible bowel resection, stoma. I did talk to the patient and patient's family member about the benefit and risk, alternate procedure. I indicated the risks may include but not limited such as bleeding, infection, short bowel syndrome, injury to common bile duct, myocardial infarction, DVT, injury to bowel, stroke and even . They understand. The patient signed informed consent and agreed to proceed with the procedure. I answered all questions. DETAILS OF PROCEDURE: We brought the patient to the OR, put the patient in the supine position. The patient received SCD on bilateral legs to prevent DVT. Also, the patient received 1 gram of vancomycin IV for prophylactic antibiotic. The patient received general anesthesia without difficulty and also the patient received Curiel catheter insertion. The patient's abdomen was prepped and draped in routine sterile fashion. After time out, I injected the local anesthesia above umbilical made about a 2 cm incision above umbilical, opened fascia and opened peritoneum under direct vision. I put a Geovanni trocar in, connected to CO2 to create pneumoperitoneum. Flow rate 6 liter per minute. Pressure not more than 14 mmHg. Then we put the camera in to look around the abdomen and at this moment, we could assess the small bowel condition we decided to make a small incision do exploratory laparotomy. Then I extended the incision about 8 cm and opened fascia, opened peritoneum under direct vision. Then we found the small bowel found the patient has multiple small bowel diverticulosis. This is probably the reason CT diagnosis pneumatosis, but there was no ischemia small bowel, large bowel. All the color was pink and we checked all small bowel, no perforation. At this moment, we decided to close the abdomen. Hemostasis was obtained. Then I closed the abdomen and fascial layer by using #1 PDS continuous running, closed subcutaneous layer by using 2-0 Vicryl continuous running, closed skin by using staple. We put the dressing on. The patient tolerated the procedure well. All the instrument, needle and sponge count correct x2 at the end of case. The patient transferred to recovery room in stable condition. After the procedure, I did talk to the patient and family member about OR finding and procedure we did, they understand. I attest to the content of the Intraoperative Record and any orders documented therein. Any exceptions are noted below. RANDI
[2017-02-16] MEDS ORDERED: GLUCOSE 40% GEL 15 GM TUBE PO PRN (09:15)
[2017-02-16] MEDS ORDERED: GLUCAGON FOR INJ 1 MG VIAL SQ PRN (09:15)
[2017-02-16] MEDS ORDERED: DEXTROSE 50% 50 ML SYR IV PRN (09:15)
[2017-02-16] MEDS ORDERED: GLUCOSE 10 TABS/TUBE PO PRN (09:15)
--- NOTE | 2017-02-16 09:21 | Medical Consult ---
Consultation Date of Consultation: Feb 16, 2017. Attending Physician: Alejandro Delacruz MD Reason for Consultation: Medical Management History of Present Illness Mr. Bear is an 86 y/o male with PMHx of T2DM, HTN, Mild Anemia, and DJD who is S/P ex lap with small bowel diverticulosis. Hospitalist consultation for co- management. Patient reporting incision abdominal pain and bloating but improvement from pain on admission. Last BM was yesterday x 2 which were normal for him. He feels that abdominal bloat has been gradually increasing over the past week. He reports good control of his DM with oral agents. Reporting good control of HTN with one medication. He denies cardiac history including DC or CHF. Denies H/O DVT/PE. Past Medical/Surgical History 1. HTN 2. T2DM 3. Anemia of Chronic Disease 4. DJD 5. Small Bowel Diverticulosis Family History Diabetes mellitus Hypertension Social History Smoking Status: Former Smoker Smokeless Tobacco Use: No Alcohol Use: occasionally Drug Use: none Marital Status: Occupation Status: retired Allergies Coded Allergies: No Known Allergies (Unverified , 02/15/17) Current Inpatient Medications Current Inpatient Medications Medications (Trade) Dose Ordered Sig/Damaso Route Start Time Stop Time Status Last Admin Dose Admin Ioversol (Optiray 320) 100 ml UD PRN IV 02/15/17 20:45 02/19/17 20:44 Potassium Chloride/Dextrose/ Sod Cl 1,000 ml @ 100 mls/hr Q10H IV 02/16/17 05:30 03/18/17 05:29 02/16/17 05:54 100 MLS/HR Metronidazole 500 mg/Prmx 0 ml @ 100 mls/hr Q8 IV 02/16/17 06:00 02/17/17 05:59 02/16/17 05:55 100 MLS/HR Ondansetron HCl (Zofran Inj) 4 mg Q4H PRN IV 02/16/17 03:30 03/18/17 03:29 02/16/17 05:18 4 MG Acetaminophen (Tylenol Tab) 650 mg Q6H PRN PO 02/16/17 03:30 03/18/17 03:29 Oxycodone/ Acetaminophen (Percocet 5-325mg Tab) 1 tab Q4H PRN PO 02/16/17 03:30 03/02/17 03:29 Hydromorphone HCl (Dilaudid Inj) 0.6 mg Q3H PRN IV 02/16/17 03:30 03/02/17 03:29 Ciprofloxacin/ Dextrose 400 mg/ Prmx 200 ml @ 100 mls/hr Q12H IV 02/16/17 06:00 02/18/17 05:59 02/16/17 05:55 100 MLS/HR Menthol (Nice Frances) 1 frances PRN PRN PO 02/16/17 05:45 03/18/17 05:44 02/16/17 05:54 1 FRANCES Review of Systems Constitutional: No fever, No chills ENT: No nasal symptoms, No sore throat, No trouble swallowing Respiratory: No cough, No shortness of breath Cardiovascular: No chest pain, No palpitations Abdomen: + pain (incisional), + problem reported (abdominal bloating), No nausea, No vomiting, No diarrhea, No constipation Musculoskeletal: No swelling, No calf pain Genitourinary - Male: No dysuria Neurologic: No numbness/tingling Hematologic / Lymphatic: No abnormal bleeding/bruising Physical Exam Date Time Temp Pulse Resp B/P (MAP) Pulse Ox O2 Delivery O2 Flow Rate FiO2 02/16/17 08:20 36.7 77 16 139/71 (93) 96 Humidified Oxygen 2.0 02/16/17 07:29 36.8 75 19 135/74 (94) 97 Humidified Oxygen 4.0 02/16/17 06:15 36.9 81 16 146/80 (102) 96 Room Air 02/16/17 05:55 36.6 80 16 158/79 97 Nasal Cannula 3.0 02/16/17 05:45 36.7 81 16 153/77 (102) 94 Nasal Cannula 3.0 Humidified Oxygen 02/16/17 05:30 94 Nasal Cannula 3.0 02/16/17 05:30 Nasal Cannula 3.0 02/16/17 05:15 36.2 87 16 158/79 (105) 95 Nasal Cannula 3.0 Humidified Oxygen 02/16/17 04:43 36.7 74 20 160/67 (100) 97 Nasal Cannula 3 02/16/17 04:35 36.4 82 20 178/76 (117) 98 Nasal Cannula 3 Oxymask 02/16/17 04:25 36.4 77 19 134/82 (95) 97 Nasal Cannula 3 Oxymask 02/16/17 04:15 36.5 77 21 158/70 (103) 96 Oxymask 10 02/16/17 04:05 36.5 78 19 162/74 (103) 97 Oxymask 10 02/16/17 03:55 36.4 80 21 179/44 (109) 98 Oxymask 10 02/16/17 03:45 36.3 80 16 137/69 (89) 94 Oxymask 10 02/16/17 03:35 36.6 80 16 173/114 (141) 97 Oxymask 10 02/16/17 00:22 36.6 83 18 174/72 94 02/15/17 22:37 83 18 174/72 94 Room Air 02/15/17 21:21 73 02/15/17 20:43 99 Room Air 02/15/17 20:43 99 Room Air 02/15/17 20:26 36.6 89 18 175/93 97 Room Air General Appearance: WD/WN, no apparent distress Head: normocephalic, atraumatic Eyes: sclerae normal ENT: hearing grossly normal Neck: supple, no JVD, trachea midline Respiratory/Chest: normal breath sounds, no respiratory distress, no accessory muscle use, + crackles (minimal crackles in R base that improved with further deep breathing) Cardiovascular: regular rate, rhythm, no gallop, no murmur Abdomen/GI: + abnormal bowel sounds (hypoactive bowel sounds), + distended, + pertinent finding (dressing applied to surgical site with marked bloody drainage which is minimal) Extremities/Musculoskelatal: no calf tenderness, no pedal edema Neurologic/Psych: alert, oriented x 3 Skin: normal color, warm/dry Laboratory Results Last 24 Hours Test 02/15/17 21:05 02/15/17 23:10 02/16/17 01:25 02/16/17 03:41 White Blood Count 8.73 K/uL Red Blood Count 3.57 M/uL Hemoglobin 11.7 g/dL Hematocrit 32.7 % Mean Corpuscular Volume 91.6 fL Mean Corpuscular Hemoglobin 32.8 pg Mean Corpuscular Hemoglobin Concent 35.8 g/dl Platelet Count 197 K/uL Mean Platelet Volume 8.4 fL Neutrophils (%) (Auto) 76.2 % Lymphocytes (%) (Auto) 14.7 % Monocytes (%) (Auto) 6.4 % Eosinophils (%) (Auto) 2.2 % Basophils (%) (Auto) 0.2 % Neutrophils # (Auto) 6.65 K/uL Lymphocytes # (Auto) 1.28 K/uL Monocytes # (Auto) 0.56 K/uL Eosinophils # (Auto) 0.19 K/uL Basophils # (Auto) 0.02 K/uL RDW Standard Deviation 42.3 fL RDW Coefficient of Variation 12.7 % Immature Granulocyte % (Auto) 0.3 % Immature Granulocyte # (Auto) 0.03 K/uL Red Blood Cell Morphology Unremarkable Prothrombin Time 10.4 SECONDS Prothromb Time International Ratio 1.0 Activated Partial Thromboplast Time 27.0 SECONDS Partial Thromboplastin Ratio 1.0 Sodium Level 133 mmol/L Potassium Level 2.9 mmol/L 3.9 mmol/L Chloride Level 97 mmol/L Carbon Dioxide Level 25 mmol/L Anion Gap 11.0 mmol/L Blood Urea Nitrogen 16 mg/dl Creatinine 1.14 mg/dl Est Creatinine Clear Calc Drug Dose 49.9 ml/min Estimated GFR () 68.1 Estimated GFR (Non- 58.7 BUN/Creatinine Ratio 14.3 Random Glucose 132 mg/dl Calcium Level 9.9 mg/dl Total Bilirubin 0.4 mg/dl Direct Bilirubin 0.1 mg/dl Aspartate Amino Transf (AST/SGOT) 15 U/L Alanine Aminotransferase (ALT/SGPT) 17 U/L Alkaline Phosphatase 89 U/L Total Creatine Kinase 48 U/L Creatine Kinase MB 1.8 ng/ml Creatine Kinase MB Ratio 3.8 Troponin I < 0.015 ng/ml Total Protein 7.4 gm/dl Albumin 3.6 gm/dl Lipase 210 U/L Lactic Acid Level 2.6 mmol/L Bedside Glucose 201 mg/dl Assessment & Plan Mr. Bear is an 86 y/o male with PMHx of T2DM, HTN, Mild Anemia, and DJD who is S/P ex lap with small bowel diverticulosis. Small Bowel Diverticulosis S/P Ex Lap: - Pain management, IVF, PT/OT, and DVT Prophylaxis per primary service - Will hold ASA 81 mg daily and appreciate Surg recommendation on reinstitution after surgery Lactic Acidosis: - Will repeat lactic to monitor for resolution T2DM: A1c 5.6 - Given patient age and risk of hypoglycemia - question if medication is necessary but would defer this to PCP - Hold Metformin and Glimepiride due to surgery and NPO status - cover with liberalized SSI - BSG Q6H while NPO and ACHS when diet advanced HTN: - Hold Diovan given surgery and await labs to assess kidney function - can resume this if kidney function stable - Cover with Hydralazine PRN Mild Anemia - Anemia of Chronic Disease: STABLE - Minimal EBL during surgery and at baseline - no intervention necessary but will monitor Thank you for the consultation. Hospitalists will continue to follow. Dr. Ezekiel SALAS regional sales consultant I agree with above note. I performed a history and physical examination of the patient. I reviewed the analysis and plan and I agree with the above note. Will continue to monitor the patient medically as he recovers from the surgical procedure. Will continue to monitor labs, including lactic acid. Hold oral diabteic meds and have patient on sliding scale.
[2017-02-16 09:40] LABS: HEMATOCRIT 33.9 % (42-52); MEAN CELL VOLUME 92.9 fL (80-100); MEAN CORPUSCULAR HEMOGLOBIN 32.9 pg (25-34); MEAN CORPUSCULAR HGB CONC 35.4 g/dl (32-36); MEAN PLATELET VOLUME 8.6 fL (7.4-10.4); PLATELET COUNT 191 K/uL (130-400); RED CELL DISTRIBUTION WIDTH CV 12.9 % (11.5-14.5); RED CELL DISTRIBUTION WIDTH SD 43.7 fL (36.4-46.3); WHITE BLOOD COUNT 9.59 K/uL (4.8-10.8)
[2017-02-16 10:10] LABS: CALCIUM 9.4 mg/dl (8.5-10.1); CREATININE 1.3 mg/dl (0.60-1.40); POTASSIUM 3.9 mmol/L (3.5-5.1)
[2017-02-16] MEDS ORDERED: INSULIN ASPART 100 UNITS/ML 3 ML PEN SC SCH (12:00)
[2017-02-16] MEDS ORDERED: NURSING VERBAL MED ORDER ONE ×2 (15:00→23:00)
--- NOTE | 2017-02-16 15:45 | Surgery Progress Note ---
Surgery Progress Note Date of Service Feb 16, 2017. Subjective Post OP Day: POD # 0 s/p diagnostic laparoscopy, exploratory laparotomy + feeling well, + complaints (still having RUQ abdominal pain), No chest pain, No SOB, No bowel movement, No flatus, No nausea, No vomiting Objective Vital Signs: Date Time Temp Pulse Resp B/P (MAP) Pulse Ox O2 Delivery O2 Flow Rate FiO2 02/16/17 15:15 36.9 78 17 168/70 (102) 95 Room Air 02/16/17 12:34 37.0 76 16 150/83 (105) 96 Room Air 02/16/17 08:20 36.7 77 16 139/71 (93) 96 Humidified Oxygen 2.0 02/16/17 08:10 Nasal Cannula Humidified Oxygen 02/16/17 07:29 36.8 75 19 135/74 (94) 97 Humidified Oxygen 4.0 02/16/17 06:15 36.9 81 16 146/80 (102) 96 Room Air 02/16/17 05:55 36.6 80 16 158/79 97 Nasal Cannula 3.0 02/16/17 05:45 36.7 81 16 153/77 (102) 94 Nasal Cannula 3.0 Humidified Oxygen 02/16/17 05:30 94 Nasal Cannula 3.0 02/16/17 05:30 Nasal Cannula 3.0 02/16/17 05:15 36.2 87 16 158/79 (105) 95 Nasal Cannula 3.0 Humidified Oxygen 02/16/17 04:43 36.7 74 20 160/67 (100) 97 Nasal Cannula 3 02/16/17 04:35 36.4 82 20 178/76 (117) 98 Nasal Cannula 3 Oxymask 02/16/17 04:25 36.4 77 19 134/82 (95) 97 Nasal Cannula 3 Oxymask 02/16/17 04:15 36.5 77 21 158/70 (103) 96 Oxymask 10 02/16/17 04:05 36.5 78 19 162/74 (103) 97 Oxymask 10 02/16/17 03:55 36.4 80 21 179/44 (109) 98 Oxymask 10 02/16/17 03:45 36.3 80 16 137/69 (89) 94 Oxymask 10 02/16/17 03:35 36.6 80 16 173/114 (141) 97 Oxymask 10 02/16/17 00:22 36.6 83 18 174/72 94 02/15/17 22:37 83 18 174/72 94 Room Air 02/15/17 21:21 73 02/15/17 20:43 99 Room Air 02/15/17 20:43 99 Room Air 02/15/17 20:26 36.6 89 18 175/93 97 Room Air General Appearance: WD/WN, no apparent distress, + obese Head: normocephalic, atraumatic Neck: trachea midline Respiratory/Chest: no respiratory distress, no accessory muscle use Abdomen: soft, no organomegaly, no pulsatile mass, + tenderness (appropriate post op and in RUQ) Incision(s): clean, dry (dressing clean and dry, incision not inspected on POD # 0) Laboratory Results: Results Past 24 Hours Test 02/15/17 21:05 02/15/17 23:10 02/16/17 01:25 02/16/17 03:41 Range/Units White Blood Count 8.73 4.8-10.8 K/uL Red Blood Count 3.57 4.7-6.1 M/uL Hemoglobin 11.7 14.0-18.0 g/dL Hematocrit 32.7 42-52 % Mean Corpuscular Volume 91.6 80-100 fL Mean Corpuscular Hemoglobin 32.8 25-34 pg Mean Corpuscular Hemoglobin Concent 35.8 32-36 g/dl Platelet Count 197 130-400 K/uL Mean Platelet Volume 8.4 7.4-10.4 fL Neutrophils (%) (Auto) 76.2 % Lymphocytes (%) (Auto) 14.7 % Monocytes (%) (Auto) 6.4 % Eosinophils (%) (Auto) 2.2 % Basophils (%) (Auto) 0.2 % Neutrophils # (Auto) 6.65 1.4-6.5 K/uL Lymphocytes # (Auto) 1.28 1.2-3.4 K/uL Monocytes # (Auto) 0.56 0.11-0.59 K/uL Eosinophils # (Auto) 0.19 0-0.5 K/uL Basophils # (Auto) 0.02 0-0.2 K/uL RDW Standard Deviation 42.3 36.4-46.3 fL RDW Coefficient of Variation 12.7 11.5-14.5 % Immature Granulocyte % (Auto) 0.3 % Immature Granulocyte # (Auto) 0.03 0.00-0.02 K/uL Red Blood Cell Morphology Unremarkable Prothrombin Time 10.4 9.0-12.0 SECONDS Prothromb Time International Ratio 1.0 0.9-1.1 Activated Partial Thromboplast Time 27.0 21.0-31.0 SECONDS Partial Thromboplastin Ratio 1.0 Sodium Level 133 136-145 mmol/L Potassium Level 2.9 3.9 3.5-5.1 mmol/L Chloride Level 97 98-107 mmol/L Carbon Dioxide Level 25 21-32 mmol/L Anion Gap 11.0 3-11 mmol/L Blood Urea Nitrogen 16 7-18 mg/dl Creatinine 1.14 0.60-1.40 mg/dl Est Creatinine Clear Calc Drug Dose 49.9 ml/min Estimated GFR () 68.1 Estimated GFR (Non- 58.7 BUN/Creatinine Ratio 14.3 10-20 Random Glucose 132 70-99 mg/dl Calcium Level 9.9 8.5-10.1 mg/dl Total Bilirubin 0.4 0.2-1 mg/dl Direct Bilirubin 0.1 0-0.2 mg/dl Aspartate Amino Transf (AST/SGOT) 15 15-37 U/L Alanine Aminotransferase (ALT/SGPT) 17 12-78 U/L Alkaline Phosphatase 89 45-117 U/L Total Creatine Kinase 48 39-308 U/L Creatine Kinase MB 1.8 0.5-3.6 ng/ml Creatine Kinase MB Ratio 3.8 0-3.0 Troponin I < 0.015 0-0.045 ng/ml Total Protein 7.4 6.4-8.2 gm/dl Albumin 3.6 3.4-5.0 gm/dl Lipase 210 73-393 U/L Lactic Acid Level 2.6 0.4-2.0 mmol/L Bedside Glucose 201 70-99 mg/dl Test 02/16/17 09:31 02/16/17 12:14 Range/Units White Blood Count 9.59 4.8-10.8 K/uL Red Blood Count 3.65 4.7-6.1 M/uL Hemoglobin 12.0 14.0-18.0 g/dL Hematocrit 33.9 42-52 % Mean Corpuscular Volume 92.9 80-100 fL Mean Corpuscular Hemoglobin 32.9 25-34 pg Mean Corpuscular Hemoglobin Concent 35.4 32-36 g/dl RDW Standard Deviation 43.7 36.4-46.3 fL RDW Coefficient of Variation 12.9 11.5-14.5 % Platelet Count 191 130-400 K/uL Mean Platelet Volume 8.6 7.4-10.4 fL Sodium Level 129 136-145 mmol/L Potassium Level 3.9 3.5-5.1 mmol/L Chloride Level 98 98-107 mmol/L Carbon Dioxide Level 25 21-32 mmol/L Anion Gap 6.0 3-11 mmol/L Blood Urea Nitrogen 20 7-18 mg/dl Creatinine 1.30 0.60-1.40 mg/dl Est Creatinine Clear Calc Drug Dose 44.1 ml/min Estimated GFR () 58.1 Estimated GFR (Non- 50.1 BUN/Creatinine Ratio 15.7 10-20 Random Glucose 240 70-99 mg/dl Lactic Acid Level 1.6 0.4-2.0 mmol/L Calcium Level 9.4 8.5-10.1 mg/dl Magnesium Level 1.7 1.8-2.4 mg/dl Bedside Glucose 250 70-99 mg/dl Assessment & Plan POD # 0 s/p diagnostic laparoscopy, exploratory laparotomy -vitals stable - moderate pain controlled - findings of small bowel diverticulosis, no ischemia Plan: Continue pain management as needed Continue IV fluids and IV antibiotics Continue IV Zofran Continue NPO except ice chips encouraged ambulation SCDs will repeat am labs Dr. Delacruz has seen and examined patient, agrees with above. Addendum: Lactic acid repeat this am 1.6 NO leukocytosis
[2017-02-16] MEDS ORDERED: OXYC-57 PO (15:56)
--- NOTE | 2017-02-16 15:56 | Discharge Instructions ---
Discharge Instructions Date of Service Feb 16, 2017. Admission Reason for Admission: Acute Abdominal Pain Discharge Discharge Diagnosis / Problem: same Discharge Goals Goal(s): Decrease discomfort, Improve function Activity Recommendations Activity Limitations: as noted below No heavy lifting over 10 pounds for 6 weeks No strenuous activity until cleared by surgeon No submerging incisions underwater for 2 weeks (no bathing, swimming, or hot tubs) No driving while taking narcotic pain medication or until you are pain free Instructions / Follow-Up Instructions / Follow-Up You may shower 4 days after surgery, sponge bath and wash hair in meantime Surgical ludin will be removed in surgical office, should be removed no later than 14 days after your surgery Keep incision covered with dressing walking and light activity is encouraged You will be given Narcotic pain medication as needed for moderate to severe pain. This medication may make you drowsy. You may take extra strength Tylenol or Ibuprofen as needed for mild pain Follow-up in surgical office in 1 week, please call office at [phone] to make an appointment Current Hospital Diet Patient's current hospital diet: Discharge Diet Recommended Diet: Regular Diet, Low Fat Diet Procedures Procedures Performed: Diagnostic laproscopy, Explortory Laparotomy Pending Studies Studies pending at discharge: no Laboratory Results Hemoglobin A1c Test 01/11/17 09:08 Range/Units Estimated Average Glucose 114 mg/dl Hemoglobin A1c 5.6 4.5-5.6 % Medical Emergencies . Who to Call and When: Medical Emergencies: If at any time you feel your situation is an emergency, please call 911 immediately. . Non-Emergent Contact Non-Emergency issues call your: Primary Care Provider, Surgeon Call Non-Emergent contact if: you have a fever, temperature is above 101, your pain is not controlled, your pain is worsening, your pain is unusual for you, wound has increased drainage, wound has increased redness, wound has increased pain . "Provider Documentation" section prepared by Tana Elizondo. . VTE Core Measure Inpt VTE Proph given/why not?: SCD's [place] Drug Monitoring Program Search Results: patient reviewed within database, no issues identified
[2017-02-16] MEDS: INSULIN ASPART 100 UNITS/ML 3 ML PEN SC SCH (18:10)
[2017-02-16] MEDS ORDERED: METRONIDAZOLE / NSS 500 MG in PREMIXED NSS 100 ML IV SCH (22:00)
[2017-02-16] MEDS ORDERED: SODIUM CHLORIDE 0.9% 500ML 500 ML IV SCH (23:00)
[2017-02-17] VITALS (9 sets, daily range): BP systolic 148–179; BP diastolic 70–107; PULSE 77–117; TEMP 36.7–37; O2SAT 92–97
[2017-02-17] MEDS: INSULIN ASPART 100 UNITS/ML 3 ML PEN SC SCH ×4 (00:23→18:20)
[2017-02-17] MEDS: HydrALAZINE HCL 20 MG/ML VIAL IV. PRN ×2 (03:22→15:30)
[2017-02-17] MEDS ORDERED: NURSING VERBAL MED ORDER ONE (05:45)
[2017-02-17] MEDS: CIPROFLOXACIN / D5W 400 MG in PREMIXED IN D5W 200 ML IV SCH ×2 (05:55→17:55)
[2017-02-17] MEDS: D5W AND 1/2NSS + 20MEQ KCL 1,000 ML IV SCH ×2 (06:02→15:30)
[2017-02-17 06:35] LABS: HEMATOCRIT 35.3 % (42-52); HEMOGLOBIN 12.4 g/dL (14.0-18.0); MEAN CELL VOLUME 93.4 fL (80-100); MEAN CORPUSCULAR HEMOGLOBIN 32.8 pg (25-34); MEAN CORPUSCULAR HGB CONC 35.1 g/dl (32-36); MEAN PLATELET VOLUME 8.9 fL (7.4-10.4); PLATELET COUNT 225 K/uL (130-400); RED CELL DISTRIBUTION WIDTH SD 44.5 fL (36.4-46.3); WHITE BLOOD COUNT 9.69 K/uL (4.8-10.8)
--- NOTE | 2017-02-17 06:48 | DIAGNOSTIC IMAGING REPORT ---
CHEST 2 VIEWS ROUTINE CLINICAL HISTORY: 86 years-old Male presenting with dyspnea. TECHNIQUE: PA and lateral views of the chest were obtained. COMPARISON: 02/15/2017. FINDINGS: Atherosclerosis of aortic arch. Cardiac silhouette enlarged. Mildly low lung volumes with elevation of the right hemidiaphragm. Prominence of the right hilum may in part be due to hypoventilatory changes. Few patchy central right lung opacities suggested as well as bandlike opacities at the right lung base. No large pleural effusion or pneumothorax. Degenerative changes of the thoracic spine with exaggerated thoracic kyphosis. Diffuse gaseous distention of bowel. IMPRESSION: 1. Low lung volumes with decreased aeration in comparison to prior. 2. Prominence of the right hilum and vague central right lung opacities may relate to hypoventilation. Electronically signed by: Nagi Ayon M.D. 02/17/2017 6:47 AM Dictated Date/Time: 02/17/2017 6:44 AM
[2017-02-17 07:02] LABS: BASO % 0.1 %; BASO ABS # 0.01 K/uL (0-0.2); EOS % 0.1 %; EOS ABS # 0.01 K/uL (0-0.5); IG# 0.02 K/uL (0.00-0.02); LYMPH ABS # 0.39 K/uL (1.2-3.4); MONO % 5.4 %; MONO ABS # 0.52 K/uL (0.11-0.59); NEUT % 90.2 %; NEUT ABS # 8.74 K/uL (1.4-6.5)
[2017-02-17 07:14] LABS: ALBUMIN 3.2 gm/dl (3.4-5.0); CALCIUM 9.1 mg/dl (8.5-10.1); CREATININE 1.2 mg/dl (0.60-1.40)
[2017-02-17 07:18] LABS: TOTAL PROTEIN 7.3 gm/dl (6.4-8.2)
--- NOTE | 2017-02-17 08:22 | DIAGNOSTIC IMAGING REPORT ---
KUB CLINICAL HISTORY: 86 years-old Male presenting with distension. TECHNIQUE: Single supine view of the abdomen was obtained. COMPARISON: CT from 02/15/2017. FINDINGS: Diffuse gaseous distention of small and large bowel. Midline surgical skin ludin noted. The bladder likely contains excreted oral contrast given the density. No gross pneumoperitoneum or pneumatosis. Atherosclerosis. Degenerative changes of the spine. IMPRESSION: 1. Diffuse gaseous distention of small and large bowel. No gross pneumoperitoneum or pneumatosis. Findings suggest ileus. Electronically signed by: Nagi Ayon M.D. 02/17/2017 8:20 AM Dictated Date/Time: 02/17/2017 8:16 AM
[2017-02-17] MEDS ORDERED: VALSARTAN/HCTZ 80/12.5 MG TAB PO SCH (09:00)
[2017-02-17] MEDS: HYDROCHLOROTHIAZIDE 25 MG TAB PO SCH (09:03)
[2017-02-17] MEDS: VALSARTAN 80 MG TAB PO SCH (09:03)
--- NOTE | 2017-02-17 09:22 | Urology Consultation ---
History General Date of Service: Feb 17, 2017. Chief Complaint: urinary retention Primary Care Physician: Merlin Cisneros M.D. Pt seen a urologist before?: Yes If yes, why?: vasectomy History of Present Illness 86 yo male s/p diagnostic ex lap. Pt developed post-op UR. Nursing staff unable to straight cath the pt. Was previously only able to cath him once. The pt reports baseline hesitancy and nocturia 2-3x per night, but otherwise felt he was voiding fine pre-op. He has developed bleeding from the penis since his multiple ro attempts. Laboratory Last 24 Hours Test 02/16/17 09:31 02/16/17 12:14 02/16/17 18:02 02/17/17 00:04 White Blood Count 9.59 K/uL Red Blood Count 3.65 M/uL Hemoglobin 12.0 g/dL Hematocrit 33.9 % Mean Corpuscular Volume 92.9 fL Mean Corpuscular Hemoglobin 32.9 pg Mean Corpuscular Hemoglobin Concent 35.4 g/dl RDW Standard Deviation 43.7 fL RDW Coefficient of Variation 12.9 % Platelet Count 191 K/uL Mean Platelet Volume 8.6 fL Sodium Level 129 mmol/L Potassium Level 3.9 mmol/L Chloride Level 98 mmol/L Carbon Dioxide Level 25 mmol/L Anion Gap 6.0 mmol/L Blood Urea Nitrogen 20 mg/dl Creatinine 1.30 mg/dl Est Creatinine Clear Calc Drug Dose 44.1 ml/min Estimated GFR () 58.1 Estimated GFR (Non- 50.1 BUN/Creatinine Ratio 15.7 Random Glucose 240 mg/dl Lactic Acid Level 1.6 mmol/L Calcium Level 9.4 mg/dl Magnesium Level 1.7 mg/dl Bedside Glucose 250 mg/dl 193 mg/dl 194 mg/dl Test 02/17/17 05:51 02/17/17 05:55 Bedside Glucose 269 mg/dl White Blood Count 9.69 K/uL Red Blood Count 3.78 M/uL Hemoglobin 12.4 g/dL Hematocrit 35.3 % Mean Corpuscular Volume 93.4 fL Mean Corpuscular Hemoglobin 32.8 pg Mean Corpuscular Hemoglobin Concent 35.1 g/dl Platelet Count 225 K/uL Mean Platelet Volume 8.9 fL Neutrophils (%) (Auto) 90.2 % Lymphocytes (%) (Auto) 4.0 % Monocytes (%) (Auto) 5.4 % Eosinophils (%) (Auto) 0.1 % Basophils (%) (Auto) 0.1 % Neutrophils # (Auto) 8.74 K/uL Lymphocytes # (Auto) 0.39 K/uL Monocytes # (Auto) 0.52 K/uL Eosinophils # (Auto) 0.01 K/uL Basophils # (Auto) 0.01 K/uL RDW Standard Deviation 44.5 fL RDW Coefficient of Variation 13.0 % Immature Granulocyte % (Auto) 0.2 % Immature Granulocyte # (Auto) 0.02 K/uL Sodium Level 129 mmol/L Potassium Level 4.0 mmol/L Chloride Level 99 mmol/L Carbon Dioxide Level 23 mmol/L Anion Gap 7.0 mmol/L Blood Urea Nitrogen 18 mg/dl Creatinine 1.20 mg/dl Est Creatinine Clear Calc Drug Dose 47.8 ml/min Estimated GFR () 64.0 Estimated GFR (Non- 55.2 BUN/Creatinine Ratio 15.3 Random Glucose 266 mg/dl Calcium Level 9.1 mg/dl Total Bilirubin 0.7 mg/dl Aspartate Amino Transf (AST/SGOT) 15 U/L Alanine Aminotransferase (ALT/SGPT) 17 U/L Alkaline Phosphatase 72 U/L Total Protein 7.3 gm/dl Albumin 3.2 gm/dl Globulin 4.1 gm/dl Albumin/Globulin Ratio 0.8 Problem List Medical Problems: (1) Abdominal pain Status: Acute Past History diabetes, diverticulosis, hypertension, other (anemia, DJD) Past Surgical History: exploratory laparoscopy, exploratory laparotomy Family History Diabetes mellitus Hypertension Social History Hx Tobacco Use In Past Year?: No Smoking: other (former smoker) Alcohol: occasional Drug use: none Marital status: Housing status: lives with family Occupation status: retired History of MDRO No Allergies Coded Allergies: No Known Allergies (Unverified , 02/15/17) Medications Home Medications: Home Meds and Scripts Medications Dose Route/Sig Max Daily Dose Days Date Category Percocet 5MG/325MG (Oxycodone/Acetaminophen) Tab 1 Tablet PO Q4H PRN 02/16/17 Rx Glimepiride 1 Mg Tab 1 Mg PO DAILY 02/15/17 Reported Diovan Hct 160MG/25MG (HCTZ/Valsartan) 1 Tab Tab 1 Tab PO DAILY 02/15/17 Reported Glucophage (Metformin Hcl) 500 Mg Tab 500 Mg PO DAILY 02/15/17 Reported Clarinex (Desloratadine) 5 Mg Tab 5 Mg PO DAILY 02/15/17 Reported Aspirin Ec (Aspirin) 81 Mg Tab 81 Mg PO DAILY 02/15/17 Reported Inpatient Medications: Current Inpatient Medications Medications (Trade) Dose Ordered Sig/Damaso Route Start Time Stop Time Status Last Admin Dose Admin Ioversol (Optiray 320) 100 ml UD PRN IV 02/15/17 20:45 02/19/17 20:44 Potassium Chloride/Dextrose/ Sod Cl 1,000 ml @ 100 mls/hr Q10H IV 02/16/17 05:30 03/18/17 05:29 02/17/17 06:02 100 MLS/HR Ondansetron HCl (Zofran Inj) 4 mg Q4H PRN IV 02/16/17 03:30 03/18/17 03:29 02/16/17 05:18 4 MG Acetaminophen (Tylenol Tab) 650 mg Q6H PRN PO 02/16/17 03:30 03/18/17 03:29 02/17/17 01:59 650 MG Oxycodone/ Acetaminophen (Percocet 5-325mg Tab) 1 tab Q4H PRN PO 02/16/17 03:30 03/02/17 03:29 Hydromorphone HCl (Dilaudid Inj) 0.6 mg Q3H PRN IV 02/16/17 03:30 03/02/17 03:29 Ciprofloxacin/ Dextrose 400 mg/ Prmx 200 ml @ 100 mls/hr Q12H IV 02/16/17 06:00 02/18/17 05:59 02/17/17 05:55 100 MLS/HR Menthol (Nice Frances) 1 frances PRN PRN PO 02/16/17 05:45 03/18/17 05:44 02/16/17 05:54 1 FRANCES Hydralazine HCl (HydrALAZINE INJ) 10 mg Q6 PRN IV. 02/16/17 09:15 03/18/17 09:14 02/17/17 03:22 10 MG Glucose (Glucose 40% Gel) 15-30 GRAMS 15 GRAMS... UD PRN PO 02/16/17 09:15 03/18/17 09:14 Glucose (Glucose Chew Tab) 4-8 Tablets 4 Tabl... UD PRN PO 02/16/17 09:15 03/18/17 09:14 Dextrose (Dextrose 50% 50ML Syringe) 25-50ML OF 50% DW IV FOR... UD PRN IV 02/16/17 09:15 03/18/17 09:14 Glucagon (Glucagon Inj) 1 mg UD PRN SQ 02/16/17 09:15 03/18/17 09:14 Insulin Aspart (novoLOG ASPART) SLIDING SCALE If C... Q6 SC 02/16/17 18:00 03/18/17 17:59 02/17/17 06:01 3 UNITS Valsartan (Diovan Tab) 80 mg DAILY PO 02/17/17 09:00 03/19/17 08:59 02/17/17 09:03 80 MG Hydrochlorothiazide (Hydrochlorothiazide Tab) 12.5 mg DAILY PO 02/17/17 09:00 03/19/17 08:59 02/17/17 09:03 12.5 MG Review of Systems Review of Systems Constitutional: No fever, No chills Eyes: No double vision Neurological: No dizzy Endocrine: No excessive thirst Gastrointestinal: No abdominal pain, No nausea, No vomiting Cardiovascular: No chest pain Respiratory: No shortness of breath Skin: No rash Musculoskeletal: No back pain Male : + urinary retention, + blood in urine Physical Exam Vital Signs: Vital Signs Past 12 Hours Date Time Temp Pulse Resp B/P (MAP) Pulse Ox O2 Delivery O2 Flow Rate FiO2 02/17/17 07:06 Room Air 02/17/17 07:06 18 02/17/17 07:01 37.0 89 24 151/70 (97) 95 Room Air 02/17/17 04:48 150/75 (100) 02/17/17 03:16 36.7 77 18 179/82 (114) 92 Room Air 02/16/17 23:45 Room Air 02/16/17 23:07 36.8 50 16 113/69 (84) 97 Room Air 02/16/17 23:02 37.2 84 18 144/72 (96) 94 Room Air Physical Exam: General Appearance: no apparent distress Eyes: bilateral eyes normal inspection ENT: hearing grossly normal Neck: no JVD Respiratory/Chest: no respiratory distress, no accessory muscle use Cardiovascular: no JVD Extremities: normal inspection Neurologic/Psychiatric: alert, normal mood/affect, oriented x 3 Skin: normal color Assessment & Plan Assessment & Plan A/P: Urinary retention Circumcised male with some bleeding noted coming from the penis this morning. Attempted to place a 3-way 20Fr coude ro catheter. Noted to have what felt like strictures in the urethra while attempting to pass the catheter. I met resistance at the prostate and/or bladder neck and was unable to pass the ro any further. I was then able to pass a 16Fr straight ro into the bladder and drained >700ml clear, yellow urine. Will plan to leave ro catheter in place 10 days. Outpatient TOV at that time. Recommend he remain inpatient overnight to ensure bleeding from penis improves and no issues with ro. Will also start him on Flomax at bedtime, and monitor for orthostasis after administration. Pt may be discharged home on Flomax if he tolerates it well. Thanks for the consult. Will continue to follow along with primary service.
[2017-02-17] MEDS ORDERED: ALBUT/IPRATROP 3MG/0.5MG NEB 3 ML VIAL INH ONE (10:00)
--- NOTE | 2017-02-17 10:07 | Hospitalist Progress Note ---
Hospitalist Progress Note Date of Service Feb 17, 2017. (Merle Mak, SHONNAC) Subjective Pt evaluation today including: conversation w/ patient, physical exam, chart review, lab review, review of studies, review of inpatient medication list Voiding: ro catheter in place Patient seen and evaluated. Was having continued urinary retention since yesterday afternoon and has had issues passing catheter. Patient reports some BPH issues with mostly some retention at night but felt that his urination has been adequate. Not on any BPH medications. He states that he also felt SOB last night and started to cough and is producing clear/white sputum. Reports he is using his incentive spirometer and can normally get it to the line but sometimes he cannot. His abdomen remains distended but does look slightly improved and he thinks so too. However reports he does have difficulty getting taking deep breaths. No N/ V. Per nursing, sitting up in bedside chair has helped however still with exp. wheeze in mid-lungs b/l. No O2 needs and denies SOB at this time. He denies H/O respiratory issues and doesn't utilize inhalers or nebs. Will give Duoneb x 1 and monitor response. Is reporting a sore throat but states it is improving. A lot of irritation that is likely from trauma during intubation and coughing. No infectious appearance. Constitutional: No fever, No chills ENT: + sore throat Respiratory: + cough, + sputum, + shortness of breath (last night - currently resolved) Cardiovascular: No chest pain, No palpitations Abdomen: + pain (incisional), No nausea, No vomiting, No diarrhea, No constipation Male : + problem reported (blood from penis after straight cath attempts) (Merle Mak, SHONNAC) Medications Current Inpatient Medications Medications (Trade) Dose Ordered Sig/Damaso Route Start Time Stop Time Status Last Admin Dose Admin Ioversol (Optiray 320) 100 ml UD PRN IV 02/15/17 20:45 02/19/17 20:44 Potassium Chloride/Dextrose/ Sod Cl 1,000 ml @ 100 mls/hr Q10H IV 02/16/17 05:30 03/18/17 05:29 02/17/17 06:02 100 MLS/HR Ondansetron HCl (Zofran Inj) 4 mg Q4H PRN IV 02/16/17 03:30 03/18/17 03:29 02/16/17 05:18 4 MG Acetaminophen (Tylenol Tab) 650 mg Q6H PRN PO 02/16/17 03:30 03/18/17 03:29 02/17/17 01:59 650 MG Oxycodone/ Acetaminophen (Percocet 5-325mg Tab) 1 tab Q4H PRN PO 02/16/17 03:30 03/02/17 03:29 Hydromorphone HCl (Dilaudid Inj) 0.6 mg Q3H PRN IV 02/16/17 03:30 03/02/17 03:29 Ciprofloxacin/ Dextrose 400 mg/ Prmx 200 ml @ 100 mls/hr Q12H IV 02/16/17 06:00 02/18/17 05:59 02/17/17 05:55 100 MLS/HR Menthol (Nice Frances) 1 frances PRN PRN PO 02/16/17 05:45 03/18/17 05:44 02/16/17 05:54 1 FRANCES Hydralazine HCl (HydrALAZINE INJ) 10 mg Q6 PRN IV. 02/16/17 09:15 03/18/17 09:14 02/17/17 03:22 10 MG Glucose (Glucose 40% Gel) 15-30 GRAMS 15 GRAMS... UD PRN PO 02/16/17 09:15 03/18/17 09:14 Glucose (Glucose Chew Tab) 4-8 Tablets 4 Tabl... UD PRN PO 02/16/17 09:15 03/18/17 09:14 Dextrose (Dextrose 50% 50ML Syringe) 25-50ML OF 50% DW IV FOR... UD PRN IV 02/16/17 09:15 03/18/17 09:14 Glucagon (Glucagon Inj) 1 mg UD PRN SQ 02/16/17 09:15 03/18/17 09:14 Insulin Aspart (novoLOG ASPART) SLIDING SCALE If C... Q6 SC 02/16/17 18:00 03/18/17 17:59 02/17/17 06:01 3 UNITS Valsartan (Diovan Tab) 80 mg DAILY PO 02/17/17 09:00 03/19/17 08:59 02/17/17 09:03 80 MG Hydrochlorothiazide (Hydrochlorothiazide Tab) 12.5 mg DAILY PO 02/17/17 09:00 03/19/17 08:59 02/17/17 09:03 12.5 MG Tamsulosin HCl (Flomax Cap) 0.4 mg HS PO 02/17/17 21:00 03/19/17 20:59 (Merle Mak PA-C) Objective Vital Signs Date Time Temp Pulse Resp B/P (MAP) Pulse Ox O2 Delivery O2 Flow Rate FiO2 02/17/17 07:06 Room Air 02/17/17 07:06 18 02/17/17 07:01 37.0 89 24 151/70 (97) 95 Room Air 02/17/17 04:48 150/75 (100) 02/17/17 03:16 36.7 77 18 179/82 (114) 92 Room Air 02/16/17 23:45 Room Air 02/16/17 23:07 36.8 50 16 113/69 (84) 97 Room Air 02/16/17 23:02 37.2 84 18 144/72 (96) 94 Room Air 02/16/17 20:31 37.0 79 17 147/71 (96) 93 Room Air 02/16/17 16:30 Room Air 02/16/17 15:15 36.9 78 17 168/70 (102) 95 Room Air 02/16/17 12:34 37.0 76 16 150/83 (105) 96 Room Air (Merle Mak PA-C) Physical Exam General Appearance: WD/WN, no apparent distress Eyes: sclerae normal ENT: hearing grossly normal, + pharyngeal erythema (R posterior pharynx > L; no exudates) Neck: supple, no JVD, trachea midline Respiratory/Chest: no respiratory distress, no accessory muscle use, + wheezing (mid-lung b/l) Cardiovascular: regular rate, rhythm, no gallop, no murmur Abdomen: + abnormal bowel sounds (largely absent; slight sounds in RLQ), + distended (softer around epigastric and suprapubic regions compared to yesterday ) Extremities: no pedal edema, no calf tenderness Neurologic/Psychiatric: alert, oriented x 3 Skin: normal color, warm/dry (Aubree, Merle M., PA-C) Laboratory Results Last 24 Hours Test 12/21/17 12:14 02/16/17 18:02 02/17/17 00:04 02/17/17 05:51 Bedside Glucose 250 mg/dl 193 mg/dl 194 mg/dl 269 mg/dl Test 02/17/17 05:55 White Blood Count 9.69 K/uL Red Blood Count 3.78 M/uL Hemoglobin 12.4 g/dL Hematocrit 35.3 % Mean Corpuscular Volume 93.4 fL Mean Corpuscular Hemoglobin 32.8 pg Mean Corpuscular Hemoglobin Concent 35.1 g/dl Platelet Count 225 K/uL Mean Platelet Volume 8.9 fL Neutrophils (%) (Auto) 90.2 % Lymphocytes (%) (Auto) 4.0 % Monocytes (%) (Auto) 5.4 % Eosinophils (%) (Auto) 0.1 % Basophils (%) (Auto) 0.1 % Neutrophils # (Auto) 8.74 K/uL Lymphocytes # (Auto) 0.39 K/uL Monocytes # (Auto) 0.52 K/uL Eosinophils # (Auto) 0.01 K/uL Basophils # (Auto) 0.01 K/uL RDW Standard Deviation 44.5 fL RDW Coefficient of Variation 13.0 % Immature Granulocyte % (Auto) 0.2 % Immature Granulocyte # (Auto) 0.02 K/uL Sodium Level 129 mmol/L Potassium Level 4.0 mmol/L Chloride Level 99 mmol/L Carbon Dioxide Level 23 mmol/L Anion Gap 7.0 mmol/L Blood Urea Nitrogen 18 mg/dl Creatinine 1.20 mg/dl Est Creatinine Clear Calc Drug Dose 47.8 ml/min Estimated GFR () 64.0 Estimated GFR (Non- 55.2 BUN/Creatinine Ratio 15.3 Random Glucose 266 mg/dl Calcium Level 9.1 mg/dl Total Bilirubin 0.7 mg/dl Aspartate Amino Transf (AST/SGOT) 15 U/L Alanine Aminotransferase (ALT/SGPT) 17 U/L Alkaline Phosphatase 72 U/L Total Protein 7.3 gm/dl Albumin 3.2 gm/dl Globulin 4.1 gm/dl Albumin/Globulin Ratio 0.8 (Merle Mak, PAPoojaC) Assessment and Plan Mr. Bear is an 86 y/o male with PMHx of T2DM, HTN, Mild Anemia, and DJD who is S/P ex lap with small bowel diverticulosis. Small Bowel Diverticulosis S/P Ex Lap: - Pain management, IVF, PT/OT, and DVT Prophylaxis per primary service - Will hold ASA 81 mg daily and appreciate Surg recommendation on reinstitution after surgery Wheezing: - Patient with no PMHx of respiratory issues - given distended abdomen patient is taking limited breaths - wheezing has improved with sitting up in bedside chair - Will do Duoneb x 1 and monitor response - encourage continued incentive spirometry; Do not favor pneumonia development at this time but will need to continue monitoring for fever and worsening symptoms; at this time still on RA without supplemental O2 needs and denies SOB - Consideration for NGT to help with distended abdomen however patient is without N/V/Abdominal Pain; encourage to sit in chair and ambulate to promote motility and lung expansion Urinary Retention: - Urology following with coude catheter placed; plan to leave Ro x 10 sim with outpatient TOV - Flomax daily and monitor for orthostasis and can be D/C'd with Flomax Lactic Acidosis: RESOLVED T2DM: A1c 5.6 - Given patient age and risk of hypoglycemia - question if medication is necessary but would defer this to PCP - Hold Metformin and Glimepiride due to NPO status - cover with liberalized SSI - glucose is rising with D5 in fluids - continue to cover with correction - BSG Q6H while NPO and ACHS when diet advanced HTN: - Can continue Diovan and cover with PRN Hydralazine Mild Anemia - Anemia of Chronic Disease: STABLE - Minimal EBL during surgery and at baseline - no intervention necessary but will monitor Thank you for the consultation. Hospitalists will continue to follow. Continued [facility] stay due to: multiple IV medications needed Discharge planning: home (Merle Mak, PA-C) Dr. Ezekiel SALAS outside solar sales consultant I agree with above note. I performed a history and physical examination of the patient. I reviewed the analysis and plan and I agree with the above note. I answered all of the patient's questions. Will continue to monitor the patient medically as he recovers from the surgical procedure. Will continue to monitor labs. Lactic acid has resolved. Hold oral diabteic meds and have patient on sliding scale. (Brian Falcon M.D.)
[2017-02-17] MEDS: CALCIUM CARBONATE 500 MG CHEWABLE PO PRN ×2 (12:21→17:55)
--- NOTE | 2017-02-17 13:43 | Surgery Progress Note ---
Surgery Progress Note Date of Service Feb 17, 2017. Subjective Post OP Day: 2 + feeling well S/P Exp lap, finding- small bowel diverticulosis, pt is doing better, passed some gas, less abdominal , no nausea, no vomiting, pt develops urine retention today, pt had ro catheter insertion, Objective Vital Signs: Date Time Temp Pulse Resp B/P (MAP) Pulse Ox O2 Delivery O2 Flow Rate FiO2 02/17/17 12:19 36.8 89 18 156/75 (102) 95 Room Air 02/17/17 10:17 83 18 96 Room Air 02/17/17 07:06 Room Air 02/17/17 07:06 18 02/17/17 07:01 37.0 89 24 151/70 (97) 95 Room Air 02/17/17 04:48 150/75 (100) 02/17/17 03:16 36.7 77 18 179/82 (114) 92 Room Air 02/16/17 23:45 Room Air 02/16/17 23:07 36.8 50 16 113/69 (84) 97 Room Air 02/16/17 23:02 37.2 84 18 144/72 (96) 94 Room Air 02/16/17 20:31 37.0 79 17 147/71 (96) 93 Room Air 02/16/17 16:30 Room Air 02/16/17 15:15 36.9 78 17 168/70 (102) 95 Room Air General Appearance: WD/WN Head: normocephalic Neck: supple, no JVD Respiratory/Chest: chest non-tender, lungs clear Cardiovascular: regular rate, rhythm, no edema, no gallop, no JVD, no murmur Abdomen: normal bowel sounds, non distended, soft, no organomegaly, + distended Incision(s): clean, dry, intact Extremities: normal range of motion, non-tender, normal inspection Laboratory Results: Results Past 24 Hours Test 02/16/17 18:02 02/17/17 00:04 02/17/17 05:51 02/17/17 05:55 Range/Units Bedside Glucose 193 194 269 70-99 mg/dl White Blood Count 9.69 4.8-10.8 K/uL Red Blood Count 3.78 4.7-6.1 M/uL Hemoglobin 12.4 14.0-18.0 g/dL Hematocrit 35.3 42-52 % Mean Corpuscular Volume 93.4 80-100 fL Mean Corpuscular Hemoglobin 32.8 25-34 pg Mean Corpuscular Hemoglobin Concent 35.1 32-36 g/dl Platelet Count 225 130-400 K/uL Mean Platelet Volume 8.9 7.4-10.4 fL Neutrophils (%) (Auto) 90.2 % Lymphocytes (%) (Auto) 4.0 % Monocytes (%) (Auto) 5.4 % Eosinophils (%) (Auto) 0.1 % Basophils (%) (Auto) 0.1 % Neutrophils # (Auto) 8.74 1.4-6.5 K/uL Lymphocytes # (Auto) 0.39 1.2-3.4 K/uL Monocytes # (Auto) 0.52 0.11-0.59 K/uL Eosinophils # (Auto) 0.01 0-0.5 K/uL Basophils # (Auto) 0.01 0-0.2 K/uL RDW Standard Deviation 44.5 36.4-46.3 fL RDW Coefficient of Variation 13.0 11.5-14.5 % Immature Granulocyte % (Auto) 0.2 % Immature Granulocyte # (Auto) 0.02 0.00-0.02 K/uL Sodium Level 129 136-145 mmol/L Potassium Level 4.0 3.5-5.1 mmol/L Chloride Level 99 98-107 mmol/L Carbon Dioxide Level 23 21-32 mmol/L Anion Gap 7.0 3-11 mmol/L Blood Urea Nitrogen 18 7-18 mg/dl Creatinine 1.20 0.60-1.40 mg/dl Est Creatinine Clear Calc Drug Dose 47.8 ml/min Estimated GFR () 64.0 Estimated GFR (Non- 55.2 BUN/Creatinine Ratio 15.3 10-20 Random Glucose 266 70-99 mg/dl Calcium Level 9.1 8.5-10.1 mg/dl Total Bilirubin 0.7 0.2-1 mg/dl Aspartate Amino Transf (AST/SGOT) 15 15-37 U/L Alanine Aminotransferase (ALT/SGPT) 17 12-78 U/L Alkaline Phosphatase 72 45-117 U/L Total Protein 7.3 6.4-8.2 gm/dl Albumin 3.2 3.4-5.0 gm/dl Globulin 4.1 2.5-4.0 gm/dl Albumin/Globulin Ratio 0.8 0.9-2 Assessment & Plan pt is doing better, urine retention keep the ro in for 1-2 days, pulmonologist intensivist surgeon will cover the weekend continue treatment, repeat labs in am, reglan 10 mg po q8h, x 2 days,
[2017-02-17] MEDS ORDERED: BISACODYL 5 MG TABEC PO ONE (13:45)
[2017-02-17] MEDS: METOCLOPRAMIDE HCL 10 MG TAB PO SCH ×2 (15:11→21:45)
[2017-02-17] MEDS: TAMSULOSIN HCL 0.4 MG CAP PO SCH (21:41)
[2017-02-17] MEDS ORDERED: RANITIDINE HCL 150 MG TAB PO ONE (23:00)
[2017-02-18] VITALS (14 sets, daily range): BP systolic 104–162; BP diastolic 56–107; PULSE 93–130; TEMP 36.4–37.1; O2SAT 94–96
[2017-02-18] MEDS: INSULIN ASPART 100 UNITS/ML 3 ML PEN SC SCH ×5 (00:29→23:43)
[2017-02-18] MEDS ORDERED: INSULIN HUMAN REGULAR PER UNIT 7 UNITS in SYRINGE 6.93 ML IV ONE (01:30)
[2017-02-18 01:31] LABS: HEMATOCRIT 34.8 % (42-52); HEMOGLOBIN 12.5 g/dL (14.0-18.0); MEAN CELL VOLUME 92.6 fL (80-100); MEAN CORPUSCULAR HEMOGLOBIN 33.2 pg (25-34); MEAN PLATELET VOLUME 8.7 fL (7.4-10.4); PLATELET COUNT 238 K/uL (130-400); RED CELL DISTRIBUTION WIDTH CV 12.9 % (11.5-14.5); RED CELL DISTRIBUTION WIDTH SD 43.9 fL (36.4-46.3); WHITE BLOOD COUNT 10.87 K/uL (4.8-10.8)
[2017-02-18] MEDS ORDERED: METOPROLOL TARTRATE 1 MG/ML VIAL IV SCH (01:45)
[2017-02-18 02:04] LABS: MEAN CORPUSCULAR HGB CONC 35.9 g/dl (32-36)
[2017-02-18 02:06] LABS: ALT/SGPT 16 U/L (12-78); AST/SGOT 15 U/L (15-37); BLOOD UREA NITROGEN 19 mg/dl (7-18); CALCIUM 9.2 mg/dl (8.5-10.1); CARBON DIOXIDE 23 mmol/L (21-32); CREATININE 1.14 mg/dl (0.60-1.40); GLUCOSE 236 mg/dl (70-99); POTASSIUM 3.8 mmol/L (3.5-5.1); SODIUM 128 mmol/L (136-145)
[2017-02-18 02:16] LABS: ALKALINE PHOSPHATASE 66 U/L (45-117); TOTAL PROTEIN 7.1 gm/dl (6.4-8.2)
[2017-02-18] MEDS: SODIUM CHLORIDE 0.9% 1000ML 1,000 ML IV SCH ×2 (02:56→15:31)
[2017-02-18] MEDS: CALCIUM CARBONATE 500 MG CHEWABLE PO PRN (03:25)
[2017-02-18] MEDS ORDERED: METOPROLOL TARTRATE 1 MG/ML VIAL IV STA (05:45)
--- NOTE | 2017-02-18 05:50 | Progress Note ---
Progress Note Date of Service Feb 18, 2017. Progress Note Was asked to see patient at the bedside due to increased heart rate and worsening cough Patient was feeling restless and was complaining of wet cough and increased heart rate Ordered EKG, CXR and labs. Patient was found to be in atrial fibrillation Moved the patient to the telemetry unit and administered 5mg of lopressor x2 -Cesar Anguiano PGY2
[2017-02-18] MEDS: METOCLOPRAMIDE HCL 10 MG TAB PO SCH ×3 (05:56→20:12)
[2017-02-18 07:10] LABS: BASO % 0.1 %; BASO ABS # 0.01 K/uL (0-0.2); EOS % 0.4 %; EOS ABS # 0.04 K/uL (0-0.5); HEMATOCRIT 32.6 % (42-52); HEMOGLOBIN 11.5 g/dL (14.0-18.0); IG# 0.03 K/uL (0.00-0.02); LYMPH % 8.1 %; LYMPH ABS # 0.86 K/uL (1.2-3.4); MEAN CELL VOLUME 93.1 fL (80-100); MEAN CORPUSCULAR HEMOGLOBIN 32.9 pg (25-34); MEAN CORPUSCULAR HGB CONC 35.3 g/dl (32-36); MEAN PLATELET VOLUME 8.8 fL (7.4-10.4); MONO % 8.3 %; MONO ABS # 0.88 K/uL (0.11-0.59); NEUT % 82.8 %; NEUT ABS # 8.81 K/uL (1.4-6.5); PLATELET COUNT 223 K/uL (130-400); RED CELL DISTRIBUTION WIDTH SD 43.9 fL (36.4-46.3); WHITE BLOOD COUNT 10.63 K/uL (4.8-10.8)
[2017-02-18 07:44] LABS: ALBUMIN 2.6 gm/dl (3.4-5.0); CREATININE 1.05 mg/dl (0.60-1.40); POTASSIUM 3.7 mmol/L (3.5-5.1)
[2017-02-18 07:47] LABS: TOTAL PROTEIN 6.3 gm/dl (6.4-8.2)
[2017-02-18] MEDS: HYDROCHLOROTHIAZIDE 25 MG TAB PO SCH (08:12)
[2017-02-18] MEDS: VALSARTAN 80 MG TAB PO SCH (08:12)
--- NOTE | 2017-02-18 08:17 | DIAGNOSTIC IMAGING REPORT ---
CHEST 2 VIEWS ROUTINE HISTORY: Cough COMPARISON: Chest 02/17/2017. KUB 02/17/2017. FINDINGS: There are low lung volumes. No pneumothorax. No pleural effusions. Right basilar linear densities favor subsegmental atelectasis due to the mildly elevated right hemidiaphragm. Mildly distended gas-filled loops of large and small bowel remain unchanged. The heart is stable in size. Mild right greater than left perihilar interstitial thickening has improved. This favors resolving congestive change. IMPRESSION: 1. Suggestion of resolving asymmetric congestive change. 2. Low lung volumes with right basilar subsegmental atelectasis, unchanged. 3. No change in the mildly distended gas-filled loops of large and small bowel. Electronically signed by: Yordy Manning M.D. 02/18/2017 8:16 AM Dictated Date/Time: 02/18/2017 8:14 AM
--- NOTE | 2017-02-18 09:27 | Surgery Progress Note ---
Surgery Progress Note Date of Service Feb 18, 2017. Subjective Post OP Day: 3 + feeling well, + flatus, + pain controlled, No nausea, No vomiting Objective Vital Signs: Date Time Temp Pulse Resp B/P (MAP) Pulse Ox O2 Delivery O2 Flow Rate FiO2 02/18/17 08:00 94 Room Air 02/18/17 07:30 37.1 98 20 104/59 (74) 94 Room Air 02/18/17 06:01 118 151/78 02/18/17 04:00 95 Room Air 3.0 02/18/17 02:19 118 151/78 02/18/17 02:13 36.8 130 18 95 02/18/17 00:30 130 02/18/17 00:22 120 162/94 (116) 02/17/17 23:30 36.8 117 18 154/107 (123) 95 Room Air 02/17/17 22:42 173/85 (114) 170/77 (108) 155/84 (107) 02/17/17 20:09 Room Air 02/17/17 16:46 148/75 (99) 02/17/17 15:30 Room Air 02/17/17 14:55 36.9 86 16 179/87 (117) 97 Room Air 02/17/17 12:19 36.8 89 18 156/75 (102) 95 Room Air 02/17/17 10:17 83 18 96 Room Air General Appearance: WD/WN, no apparent distress Abdomen: non tender, + pertinent finding (abdominal distention) Laboratory Results: Results Past 24 Hours Test 02/17/17 12:20 02/17/17 18:16 02/18/17 00:16 02/18/17 01:13 Range/Units Bedside Glucose 244 251 261 70-99 mg/dl White Blood Count 10.87 4.8-10.8 K/uL Red Blood Count 3.76 4.7-6.1 M/uL Hemoglobin 12.5 14.0-18.0 g/dL Hematocrit 34.8 42-52 % Mean Corpuscular Volume 92.6 80-100 fL Mean Corpuscular Hemoglobin 33.2 25-34 pg Mean Corpuscular Hemoglobin Concent 35.9 32-36 g/dl RDW Standard Deviation 43.9 36.4-46.3 fL RDW Coefficient of Variation 12.9 11.5-14.5 % Platelet Count 238 130-400 K/uL Mean Platelet Volume 8.7 7.4-10.4 fL Sodium Level 128 136-145 mmol/L Potassium Level 3.8 3.5-5.1 mmol/L Chloride Level 96 98-107 mmol/L Carbon Dioxide Level 23 21-32 mmol/L Anion Gap 9.0 3-11 mmol/L Blood Urea Nitrogen 19 7-18 mg/dl Creatinine 1.14 0.60-1.40 mg/dl Est Creatinine Clear Calc Drug Dose 50.3 ml/min Estimated GFR () 68.1 Estimated GFR (Non- 58.7 BUN/Creatinine Ratio 16.9 10-20 Random Glucose 236 70-99 mg/dl Calcium Level 9.2 8.5-10.1 mg/dl Total Bilirubin 0.7 0.2-1 mg/dl Aspartate Amino Transf (AST/SGOT) 15 15-37 U/L Alanine Aminotransferase (ALT/SGPT) 16 12-78 U/L Alkaline Phosphatase 66 45-117 U/L Troponin I < 0.015 0-0.045 ng/ml Total Protein 7.1 6.4-8.2 gm/dl Albumin 3.0 3.4-5.0 gm/dl Globulin 4.1 2.5-4.0 gm/dl Albumin/Globulin Ratio 0.7 0.9-2 Test 02/18/17 06:38 02/18/17 06:42 Range/Units Bedside Glucose 186 70-99 mg/dl White Blood Count 10.63 4.8-10.8 K/uL Red Blood Count 3.50 4.7-6.1 M/uL Hemoglobin 11.5 14.0-18.0 g/dL Hematocrit 32.6 42-52 % Mean Corpuscular Volume 93.1 80-100 fL Mean Corpuscular Hemoglobin 32.9 25-34 pg Mean Corpuscular Hemoglobin Concent 35.3 32-36 g/dl Platelet Count 223 130-400 K/uL Mean Platelet Volume 8.8 7.4-10.4 fL Neutrophils (%) (Auto) 82.8 % Lymphocytes (%) (Auto) 8.1 % Monocytes (%) (Auto) 8.3 % Eosinophils (%) (Auto) 0.4 % Basophils (%) (Auto) 0.1 % Neutrophils # (Auto) 8.81 1.4-6.5 K/uL Lymphocytes # (Auto) 0.86 1.2-3.4 K/uL Monocytes # (Auto) 0.88 0.11-0.59 K/uL Eosinophils # (Auto) 0.04 0-0.5 K/uL Basophils # (Auto) 0.01 0-0.2 K/uL RDW Standard Deviation 43.9 36.4-46.3 fL RDW Coefficient of Variation 13.0 11.5-14.5 % Immature Granulocyte % (Auto) 0.3 % Immature Granulocyte # (Auto) 0.03 0.00-0.02 K/uL Sodium Level 128 136-145 mmol/L Potassium Level 3.7 3.5-5.1 mmol/L Chloride Level 97 98-107 mmol/L Carbon Dioxide Level 24 21-32 mmol/L Anion Gap 7.0 3-11 mmol/L Blood Urea Nitrogen 21 7-18 mg/dl Creatinine 1.05 0.60-1.40 mg/dl Est Creatinine Clear Calc Drug Dose 55.7 ml/min Estimated GFR () 75.2 Estimated GFR (Non- 64.9 BUN/Creatinine Ratio 20.2 10-20 Random Glucose 170 70-99 mg/dl Calcium Level 9.0 8.5-10.1 mg/dl Total Bilirubin 0.7 0.2-1 mg/dl Aspartate Amino Transf (AST/SGOT) 12 15-37 U/L Alanine Aminotransferase (ALT/SGPT) 15 12-78 U/L Alkaline Phosphatase 59 45-117 U/L Total Protein 6.3 6.4-8.2 gm/dl Albumin 2.6 3.4-5.0 gm/dl Globulin 3.7 2.5-4.0 gm/dl Albumin/Globulin Ratio 0.7 0.9-2 Assessment & Plan POD #3 s/p Explor Lap- small bowel diverticulosis Patient seen and examined with Dr. Estrada. Moisés to remain in place. Patient reports that he is doing well- no nausea or vomiting, pain controlled. Abdomen still distended- will order Abdomen 2 View. Will continue to follow- call with questions.
--- NOTE | 2017-02-18 10:21 | DIAGNOSTIC IMAGING REPORT ---
ABDOMEN 2 VIEWS HISTORY: follow up bowel obstruction COMPARISON: KUB 02/17/2017. Abdomen and pelvis CT 02/15/2017. FINDINGS: Midline skin ludin are again noted. Multiple mildly dilated gas-filled loops of large and small bowel seen throughout the abdomen. Findings favor a postoperative ileus. No definite pneumoperitoneum or pneumatosis identified. Small fluid level seen within the small bowel. Small right pleural effusion. IMPRESSION: No significant change in the multiple mildly dilated gas-filled loops of large and small bowel seen throughout the abdomen. Findings suggest a postoperative ileus at this time. Electronically signed by: Yordy Manning M.D. 02/18/2017 10:19 AM Dictated Date/Time: 02/18/2017 10:18 AM
--- NOTE | 2017-02-18 12:45 | Progress Note ---
Subjective Date of Service: Feb 18, 2017. Subjective Pt evaluation today including: conversation w/ patient, physical exam Voiding: ro catheter in place ro draining well Problem List Medical Problems: (1) Abdominal pain Status: Acute Objective Vital Signs Date Time Temp Pulse Resp B/P (MAP) Pulse Ox O2 Delivery O2 Flow Rate FiO2 02/18/17 11:08 136/81 (99) 146/78 (100) 151/66 (94) 02/18/17 10:35 37.1 95 20 150/67 (94) 96 Room Air 02/18/17 08:00 94 Room Air 02/18/17 07:30 37.1 98 20 104/59 (74) 94 Room Air 02/18/17 06:01 118 151/78 02/18/17 04:00 95 Room Air 3.0 02/18/17 02:19 118 151/78 02/18/17 02:13 36.8 130 18 95 02/18/17 00:30 130 02/18/17 00:22 120 162/94 (116) 02/17/17 23:30 36.8 117 18 154/107 (123) 95 Room Air 02/17/17 22:42 173/85 (114) 170/77 (108) 155/84 (107) 02/17/17 20:09 Room Air 02/17/17 16:46 148/75 (99) 02/17/17 15:30 Room Air 02/17/17 14:55 36.9 86 16 179/87 (117) 97 Room Air Laboratory Results Last 24 Hours Test 02/17/17 18:16 02/18/17 00:16 02/18/17 01:13 02/18/17 06:38 Bedside Glucose 251 mg/dl 261 mg/dl 186 mg/dl White Blood Count 10.87 K/uL Red Blood Count 3.76 M/uL Hemoglobin 12.5 g/dL Hematocrit 34.8 % Mean Corpuscular Volume 92.6 fL Mean Corpuscular Hemoglobin 33.2 pg Mean Corpuscular Hemoglobin Concent 35.9 g/dl RDW Standard Deviation 43.9 fL RDW Coefficient of Variation 12.9 % Platelet Count 238 K/uL Mean Platelet Volume 8.7 fL Sodium Level 128 mmol/L Potassium Level 3.8 mmol/L Chloride Level 96 mmol/L Carbon Dioxide Level 23 mmol/L Anion Gap 9.0 mmol/L Blood Urea Nitrogen 19 mg/dl Creatinine 1.14 mg/dl Est Creatinine Clear Calc Drug Dose 50.3 ml/min Estimated GFR () 68.1 Estimated GFR (Non- 58.7 BUN/Creatinine Ratio 16.9 Random Glucose 236 mg/dl Calcium Level 9.2 mg/dl Total Bilirubin 0.7 mg/dl Aspartate Amino Transf (AST/SGOT) 15 U/L Alanine Aminotransferase (ALT/SGPT) 16 U/L Alkaline Phosphatase 66 U/L Troponin I < 0.015 ng/ml Total Protein 7.1 gm/dl Albumin 3.0 gm/dl Globulin 4.1 gm/dl Albumin/Globulin Ratio 0.7 Test 02/18/17 06:42 02/18/17 11:07 White Blood Count 10.63 K/uL Red Blood Count 3.50 M/uL Hemoglobin 11.5 g/dL Hematocrit 32.6 % Mean Corpuscular Volume 93.1 fL Mean Corpuscular Hemoglobin 32.9 pg Mean Corpuscular Hemoglobin Concent 35.3 g/dl Platelet Count 223 K/uL Mean Platelet Volume 8.8 fL Neutrophils (%) (Auto) 82.8 % Lymphocytes (%) (Auto) 8.1 % Monocytes (%) (Auto) 8.3 % Eosinophils (%) (Auto) 0.4 % Basophils (%) (Auto) 0.1 % Neutrophils # (Auto) 8.81 K/uL Lymphocytes # (Auto) 0.86 K/uL Monocytes # (Auto) 0.88 K/uL Eosinophils # (Auto) 0.04 K/uL Basophils # (Auto) 0.01 K/uL RDW Standard Deviation 43.9 fL RDW Coefficient of Variation 13.0 % Immature Granulocyte % (Auto) 0.3 % Immature Granulocyte # (Auto) 0.03 K/uL Sodium Level 128 mmol/L Potassium Level 3.7 mmol/L Chloride Level 97 mmol/L Carbon Dioxide Level 24 mmol/L Anion Gap 7.0 mmol/L Blood Urea Nitrogen 21 mg/dl Creatinine 1.05 mg/dl Est Creatinine Clear Calc Drug Dose 55.7 ml/min Estimated GFR () 75.2 Estimated GFR (Non- 64.9 BUN/Creatinine Ratio 20.2 Random Glucose 170 mg/dl Calcium Level 9.0 mg/dl Total Bilirubin 0.7 mg/dl Aspartate Amino Transf (AST/SGOT) 12 U/L Alanine Aminotransferase (ALT/SGPT) 15 U/L Alkaline Phosphatase 59 U/L Total Protein 6.3 gm/dl Albumin 2.6 gm/dl Globulin 3.7 gm/dl Albumin/Globulin Ratio 0.7 Bedside Glucose 169 mg/dl Assessment and Plan leave ro inn for 7 to 10 days because of traumatic placement trial of voiding as outpt unless here that long Continued [facility] stay due to: multiple IV medications needed Discharge planning: home
[2017-02-18 16:53] LABS: BASO % 0.2 %; BASO ABS # 0.02 K/uL (0-0.2); EOS % 2.2 %; EOS ABS # 0.19 K/uL (0-0.5); HEMATOCRIT 32.8 % (42-52); HEMOGLOBIN 11.2 g/dL (14.0-18.0); IG# 0.02 K/uL (0.00-0.02); LYMPH % 12.5 %; MEAN CELL VOLUME 92.7 fL (80-100); MEAN CORPUSCULAR HEMOGLOBIN 31.6 pg (25-34); MEAN PLATELET VOLUME 8.4 fL (7.4-10.4); MONO % 9.5 %; MONO ABS # 0.84 K/uL (0.11-0.59); NEUT % 75.4 %; NEUT ABS # 6.65 K/uL (1.4-6.5); PLATELET COUNT 211 K/uL (130-400); RED CELL DISTRIBUTION WIDTH CV 12.7 % (11.5-14.5); RED CELL DISTRIBUTION WIDTH SD 43.2 fL (36.4-46.3); WHITE BLOOD COUNT 8.82 K/uL (4.8-10.8)
[2017-02-18 17:00] LABS: INR 1.1 (0.9-1.1); PTT PATIENT 30.1 SECONDS (21.0-31.0)
[2017-02-18 17:19] LABS: MEAN CORPUSCULAR HGB CONC 34.1 g/dl (32-36)
[2017-02-18] MEDS ORDERED: HEPARIN 25,000 UNIT/500ML D5W 500 ML IV PRN (17:45)
[2017-02-18] MEDS ORDERED: MoRPHine SULFATE 2 MG/ML CARP IV STA (18:07)
[2017-02-18] MEDS: TAMSULOSIN HCL 0.4 MG CAP PO SCH (20:11)
[2017-02-18] MEDS ORDERED: METOCLOPRAMIDE HCL INJ 5 MG/ML 2 ML VIAL IV STA (22:23)
--- NOTE | 2017-02-18 22:25 | Progress Note ---
Subjective Date of Service: Feb 18, 2017. Subjective Pt evaluation today including: conversation w/ patient Patient reports feeling well. Patient only reports that he has not had a BM as of yet. Problem List Medical Problems: (1) Abdominal pain Status: Acute Review of Systems Constitutional: No fever, No chills Respiratory: + cough Abdomen: + constipation, No pain, No nausea Neurologic: No memory loss, No paralysis Endo: No fatigue Skin: No rash, No itch All Other Systems: Reviewed and Negative Medications Current Inpatient Medications Medications (Trade) Dose Ordered Sig/Damaso Route Start Time Stop Time Status Last Admin Dose Admin Ioversol (Optiray 320) 100 ml UD PRN IV 02/15/17 20:45 02/19/17 20:44 Ondansetron HCl (Zofran Inj) 4 mg Q4H PRN IV 02/16/17 03:30 03/18/17 03:29 02/16/17 05:18 4 MG Acetaminophen (Tylenol Tab) 650 mg Q6H PRN PO 02/16/17 03:30 03/18/17 03:29 02/17/17 01:59 650 MG Oxycodone/ Acetaminophen (Percocet 5-325mg Tab) 1 tab Q4H PRN PO 02/16/17 03:30 03/02/17 03:29 Hydromorphone HCl (Dilaudid Inj) 0.6 mg Q3H PRN IV 02/16/17 03:30 03/02/17 03:29 Menthol (Nice Natalie) 1 natalie PRN PRN PO 02/16/17 05:45 03/18/17 05:44 02/16/17 05:54 1 NATALIE Hydralazine HCl (HydrALAZINE INJ) 10 mg Q6 PRN IV. 02/16/17 09:15 03/18/17 09:14 02/17/17 15:30 10 MG Glucose (Glucose 40% Gel) 15-30 GRAMS 15 GRAMS... UD PRN PO 02/16/17 09:15 03/18/17 09:14 Glucose (Glucose Chew Tab) 4-8 Tablets 4 Tabl... UD PRN PO 02/16/17 09:15 03/18/17 09:14 Dextrose (Dextrose 50% 50ML Syringe) 25-50ML OF 50% DW IV FOR... UD PRN IV 02/16/17 09:15 03/18/17 09:14 Glucagon (Glucagon Inj) 1 mg UD PRN SQ 02/16/17 09:15 03/18/17 09:14 Insulin Aspart (novoLOG ASPART) SLIDING SCALE If C... Q6 SC 02/16/17 18:00 03/18/17 17:59 02/18/17 08:13 1 UNITS Valsartan (Diovan Tab) 80 mg DAILY PO 02/17/17 09:00 03/19/17 08:59 02/18/17 08:12 80 MG Hydrochlorothiazide (Hydrochlorothiazide Tab) 12.5 mg DAILY PO 02/17/17 09:00 03/19/17 08:59 02/18/17 08:12 12.5 MG Tamsulosin HCl (Flomax Cap) 0.4 mg HS PO 02/17/17 21:00 03/19/17 20:59 02/18/17 20:11 0.4 MG Calcium Carbonate (Tums Chew Tab) Take 1-2 tablets PRN ... Q6H PRN PO 02/17/17 12:00 03/19/17 11:59 02/18/17 03:25 1,000 MG Metoclopramide HCl (Reglan Tab) 10 mg Q8 PO 02/17/17 14:00 02/19/17 13:59 02/19/17 05:35 10 MG Sodium Chloride 1,000 ml @ 80 mls/hr [id number] IV 02/18/17 02:45 03/20/17 02:44 02/19/17 03:51 80 MLS/HR Heparin Sodium/ Dextrose 500 ml @ 27 mls/hr [id number] PRN IV 02/18/17 17:45 03/20/17 17:44 02/18/17 18:04 27 MLS/HR Objective Vital Signs Date Time Temp Pulse Resp B/P (MAP) Pulse Ox O2 Delivery O2 Flow Rate FiO2 02/18/17 20:00 95 Room Air 02/18/17 19:05 36.7 93 18 156/70 (98) 95 Room Air 02/18/17 16:00 96 Room Air 02/18/17 15:15 36.4 104 18 145/79 (101) 96 Room Air 02/18/17 12:00 95 Room Air 02/18/17 11:08 136/81 (99) 146/78 (100) 151/66 (94) 02/18/17 10:35 37.1 95 20 150/67 (94) 96 Room Air 02/18/17 08:00 94 Room Air 02/18/17 07:30 37.1 98 20 104/59 (74) 94 Room Air 02/18/17 06:01 118 151/78 02/18/17 04:00 95 Room Air 3.0 02/18/17 02:19 118 151/78 02/18/17 02:13 36.8 130 18 95 02/18/17 00:30 130 02/18/17 00:22 120 162/94 (116) 02/17/17 23:30 36.8 117 18 154/107 (123) 95 Room Air 02/17/17 22:42 173/85 (114) 170/77 (108) 155/84 (107) Physical Exam Comments: General Appearance: WD/WN, no apparent distress Eyes: sclerae normal ENT: hearing grossly normal, + decreased pharyngeal erythema Neck: supple, no JVD, trachea midline Respiratory/Chest: no respiratory distress, no accessory muscle use Cardiovascular: regular rate, rhythm, no gallop, no murmur Abdomen: + abnormal bowel sounds (largely absent; slight sounds in RLQ), + distended (softer around epigastric and suprapubic regions compared to yesterday ) Extremities: no pedal edema, no calf tenderness Neurologic/Psychiatric: alert, oriented x 3 Skin: normal color, warm/dry Laboratory Results Last 24 Hours Test 02/18/17 00:16 02/18/17 01:13 02/18/17 06:38 02/18/17 06:42 Bedside Glucose 261 mg/dl 186 mg/dl White Blood Count 10.87 K/uL 10.63 K/uL Red Blood Count 3.76 M/uL 3.50 M/uL Hemoglobin 12.5 g/dL 11.5 g/dL Hematocrit 34.8 % 32.6 % Mean Corpuscular Volume 92.6 fL 93.1 fL Mean Corpuscular Hemoglobin 33.2 pg 32.9 pg Mean Corpuscular Hemoglobin Concent 35.9 g/dl 35.3 g/dl RDW Standard Deviation 43.9 fL 43.9 fL RDW Coefficient of Variation 12.9 % 13.0 % Platelet Count 238 K/uL 223 K/uL Mean Platelet Volume 8.7 fL 8.8 fL Sodium Level 128 mmol/L 128 mmol/L Potassium Level 3.8 mmol/L 3.7 mmol/L Chloride Level 96 mmol/L 97 mmol/L Carbon Dioxide Level 23 mmol/L 24 mmol/L Anion Gap 9.0 mmol/L 7.0 mmol/L Blood Urea Nitrogen 19 mg/dl 21 mg/dl Creatinine 1.14 mg/dl 1.05 mg/dl Est Creatinine Clear Calc Drug Dose 50.3 ml/min 55.7 ml/min Estimated GFR () 68.1 75.2 Estimated GFR (Non- 58.7 64.9 BUN/Creatinine Ratio 16.9 20.2 Random Glucose 236 mg/dl 170 mg/dl Calcium Level 9.2 mg/dl 9.0 mg/dl Total Bilirubin 0.7 mg/dl 0.7 mg/dl Aspartate Amino Transf (AST/SGOT) 15 U/L 12 U/L Alanine Aminotransferase (ALT/SGPT) 16 U/L 15 U/L Alkaline Phosphatase 66 U/L 59 U/L Troponin I < 0.015 ng/ml Total Protein 7.1 gm/dl 6.3 gm/dl Albumin 3.0 gm/dl 2.6 gm/dl Globulin 4.1 gm/dl 3.7 gm/dl Albumin/Globulin Ratio 0.7 0.7 Neutrophils (%) (Auto) 82.8 % Lymphocytes (%) (Auto) 8.1 % Monocytes (%) (Auto) 8.3 % Eosinophils (%) (Auto) 0.4 % Basophils (%) (Auto) 0.1 % Neutrophils # (Auto) 8.81 K/uL Lymphocytes # (Auto) 0.86 K/uL Monocytes # (Auto) 0.88 K/uL Eosinophils # (Auto) 0.04 K/uL Basophils # (Auto) 0.01 K/uL Immature Granulocyte % (Auto) 0.3 % Immature Granulocyte # (Auto) 0.03 K/uL Test 02/18/17 11:07 02/18/17 16:16 02/18/17 16:41 02/18/17 20:28 Bedside Glucose 169 mg/dl 144 mg/dl 176 mg/dl White Blood Count 8.82 K/uL Red Blood Count 3.54 M/uL Hemoglobin 11.2 g/dL Hematocrit 32.8 % Mean Corpuscular Volume 92.7 fL Mean Corpuscular Hemoglobin 31.6 pg Mean Corpuscular Hemoglobin Concent 34.1 g/dl Platelet Count 211 K/uL Mean Platelet Volume 8.4 fL Neutrophils (%) (Auto) 75.4 % Lymphocytes (%) (Auto) 12.5 % Monocytes (%) (Auto) 9.5 % Eosinophils (%) (Auto) 2.2 % Basophils (%) (Auto) 0.2 % Neutrophils # (Auto) 6.65 K/uL Lymphocytes # (Auto) 1.10 K/uL Monocytes # (Auto) 0.84 K/uL Eosinophils # (Auto) 0.19 K/uL Basophils # (Auto) 0.02 K/uL RDW Standard Deviation 43.2 fL RDW Coefficient of Variation 12.7 % Immature Granulocyte % (Auto) 0.2 % Immature Granulocyte # (Auto) 0.02 K/uL Prothrombin Time 11.5 SECONDS Prothromb Time International Ratio 1.1 Activated Partial Thromboplast Time 30.1 SECONDS Partial Thromboplastin Ratio 1.2 Assessment and Plan Mr. Bear is an 86 y/o male with PMHx of T2DM, HTN, Mild Anemia, and DJD who is S/P ex lap with small bowel diverticulosis. New onset A.fib Heparin drip placed will initiate PO anticoag tomorrow. HR has been controlled Patient does not want warfarin after discussing options. will see which new anticoag medicine will be covered by his insurance. Small Bowel Diverticulosis S/P Ex Lap: -management by primary team - Pain management, IVF, PT/OT, and DVT Prophylaxis per primary service - Will hold ASA 81 mg daily and appreciate Surg recommendation on reinstitution after surgery -no BM as of yet. will monitor. Patient on reglan. Lactic Acidosis: - resolved T2DM: A1c 5.6 - Given patient age and risk of hypoglycemia - question if medication is necessary but would defer this to PCP - Hold Metformin and Glimepiride due to surgery and NPO status - cover with liberalized SSI - BSG Q6H while NPO and ACHS when diet advanced HTN: - will resume diovan in AM -was held for surgery and to aassess renal function - Cover with Hydralazine PRN Mild Anemia - Anemia of Chronic Disease: STABLE - Minimal EBL during surgery and at baseline - no intervention necessary but will monitor Thank you for the consultation. Hospitalist will continue to follow. Continued [facility] stay due to: multiple IV medications needed Discharge planning: home
[2017-02-19] VITALS (11 sets, daily range): BP systolic 129–183; BP diastolic 70–100; PULSE 82–87; TEMP 36.5–36.8; O2SAT 95–97
[2017-02-19 00:40] LABS: PTT PATIENT 52.1 SECONDS (21.0-31.0)
[2017-02-19] MEDS: SODIUM CHLORIDE 0.9% 1000ML 1,000 ML IV SCH ×2 (03:51→16:40)
[2017-02-19] MEDS: METOCLOPRAMIDE HCL 10 MG TAB PO SCH (05:35)
[2017-02-19 07:02] LABS: PTT PATIENT 54.1 SECONDS (21.0-31.0)
[2017-02-19] MEDS: INSULIN ASPART 100 UNITS/ML 3 ML PEN SC SCH ×4 (07:09→21:00)
--- NOTE | 2017-02-19 07:49 | Surgery Progress Note ---
Surgery Progress Note Date of Service Feb 19, 2017. Subjective Post OP Day: 4 + feeling well, + flatus, + pain controlled, No complaints, No bowel movement, No nausea, No vomiting Patient sitting up in bed this AM - reports no new concerns or complaints. Objective Vital Signs: Date Time Temp Pulse Resp B/P (MAP) Pulse Ox O2 Delivery O2 Flow Rate FiO2 02/19/17 04:13 95 Room Air 02/19/17 03:54 36.6 83 18 129/70 (89) 96 Room Air 02/19/17 00:04 95 Room Air 02/18/17 23:40 37.1 94 19 109/56 (73) 95 Room Air 02/18/17 20:00 95 Room Air 02/18/17 19:05 36.7 93 18 156/70 (98) 95 Room Air 02/18/17 16:00 96 Room Air 02/18/17 15:15 36.4 104 18 145/79 (101) 96 Room Air 02/18/17 12:00 95 Room Air 02/18/17 11:08 136/81 (99) 146/78 (100) 151/66 (94) 02/18/17 10:35 37.1 95 20 150/67 (94) 96 Room Air 02/18/17 08:00 94 Room Air General Appearance: WD/WN, no apparent distress Head: normocephalic, atraumatic Respiratory/Chest: no respiratory distress, no accessory muscle use Abdomen: + distended (slight improvement from yesterday. ), + pertinent finding (tender to palpation at incision site. ) Laboratory Results: Results Past 24 Hours Test 02/18/17 11:07 02/18/17 16:16 02/18/17 16:41 02/18/17 20:28 Range/Units Bedside Glucose 169 144 176 70-99 mg/dl White Blood Count 8.82 4.8-10.8 K/uL Red Blood Count 3.54 4.7-6.1 M/uL Hemoglobin 11.2 14.0-18.0 g/dL Hematocrit 32.8 42-52 % Mean Corpuscular Volume 92.7 80-100 fL Mean Corpuscular Hemoglobin 31.6 25-34 pg Mean Corpuscular Hemoglobin Concent 34.1 32-36 g/dl Platelet Count 211 130-400 K/uL Mean Platelet Volume 8.4 7.4-10.4 fL Neutrophils (%) (Auto) 75.4 % Lymphocytes (%) (Auto) 12.5 % Monocytes (%) (Auto) 9.5 % Eosinophils (%) (Auto) 2.2 % Basophils (%) (Auto) 0.2 % Neutrophils # (Auto) 6.65 1.4-6.5 K/uL Lymphocytes # (Auto) 1.10 1.2-3.4 K/uL Monocytes # (Auto) 0.84 0.11-0.59 K/uL Eosinophils # (Auto) 0.19 0-0.5 K/uL Basophils # (Auto) 0.02 0-0.2 K/uL RDW Standard Deviation 43.2 36.4-46.3 fL RDW Coefficient of Variation 12.7 11.5-14.5 % Immature Granulocyte % (Auto) 0.2 % Immature Granulocyte # (Auto) 0.02 0.00-0.02 K/uL Prothrombin Time 11.5 9.0-12.0 SECONDS Prothromb Time International Ratio 1.1 0.9-1.1 Activated Partial Thromboplast Time 30.1 21.0-31.0 SECONDS Partial Thromboplastin Ratio 1.2 Test 02/18/17 23:32 02/19/17 00:08 02/19/17 06:26 02/19/17 06:42 Range/Units Bedside Glucose 175 160 70-99 mg/dl Activated Partial Thromboplast Time 52.1 54.1 21.0-31.0 SECONDS Partial Thromboplastin Ratio 2.0 2.1 Assessment & Plan POD #4 s/p Ex Lap- small bowel diverticulosis Reviewed Abdomen 2 view- No significant change in the multiple mildly dilated gas-filled loops of large and small bowel seen throughout the abdomen. Findings suggest a postoperative ileus at this time. Pain is controlled. No nausea or vomiting. Passing flatus. No BM yet. Will advance diet to clear liquids and see how he tolerates. May ambulate- encourage ambulation- will D/C SCDs. Anticoagulation per medicine team. Will continue to follow. Patient seen and examined with Dr. Estrada. Electronically signed by: Yordy Manning M.D. 02/18/2017 10:19 AM Dictated Date/Time: 02/18/2017 10:18 AM POD #3 s/p Explor Lap- small bowel diverticulosis Patient seen and examined with Dr. Estrada. Curiel to remain in place. Patient reports that he is doing well- no nausea or vomiting, pain controlled. Abdomen still distended- will order Abdomen 2 View. Will continue to follow- call with questions. POD #3 s/p Explor Lap- small bowel diverticulosis Patient seen and examined with Dr. Estrada. Curiel to remain in place. Patient reports that he is doing well- no nausea or vomiting, pain controlled. Abdomen still distended- will order Abdomen 2 View. Will continue to follow- call with questions.
[2017-02-19] MEDS: VALSARTAN 80 MG TAB PO SCH (08:54)
[2017-02-19] MEDS: HYDROCHLOROTHIAZIDE 25 MG TAB PO SCH (08:54)
[2017-02-19] MEDS: METOPROLOL SUCC 25MG EXT REL TAB PO SCH (08:55)
[2017-02-19] MEDS ORDERED: VALSARTAN/HCTZ 80/12.5 MG TAB PO SCH (09:00)
[2017-02-19] MEDS ORDERED: NURSING VERBAL MED ORDER ONE ×2 (11:45→14:45)
[2017-02-19] MEDS: APIXABAN 2.5 MG TAB PO SCH (18:17)
[2017-02-19] MEDS: HydrALAZINE HCL 20 MG/ML VIAL IV. PRN (19:33)
[2017-02-19] MEDS: TAMSULOSIN HCL 0.4 MG CAP PO SCH (20:16)
[2017-02-20] VITALS (8 sets, daily range): BP systolic 155–162; BP diastolic 64–93; PULSE 83–109; TEMP 36.5–36.8; O2SAT 94–96
[2017-02-20] MEDS ORDERED: TAMSULOSIN HCL 0.4 MG CAP PO SCH
[2017-02-20] MEDS ORDERED: APIXABAN 2.5 MG TAB PO SCH
--- NOTE | 2017-02-20 01:07 | Progress Note ---
Subjective Date of Service: Feb 19, 2017. Subjective Pt evaluation today including: conversation w/ patient, conversation w/ family , physical exam, chart review 86 yo male who is being seen for medical management. Patient reports feeling well. Patient has no chest pain, dizziness, nausea or vomiting. Patient still has not had a bowel movement yet, but is passing gas. Patient's daughter who is a physician is requesting an update. Problem List Medical Problems: (1) Abdominal pain Status: Acute Review of Systems Constitutional: No fever, No chills ENT: No hearing loss Respiratory: No cough, No sputum Cardiac: No orthopnea All Other Systems: Reviewed and Negative Medications Current Inpatient Medications Medications (Trade) Dose Ordered Sig/Damaso Route Start Time Stop Time Status Last Admin Dose Admin Ondansetron HCl (Zofran Inj) 4 mg Q4H PRN IV 02/16/17 03:30 03/18/17 03:29 02/16/17 05:18 4 MG Acetaminophen (Tylenol Tab) 650 mg Q6H PRN PO 02/16/17 03:30 03/18/17 03:29 02/17/17 01:59 650 MG Oxycodone/ Acetaminophen (Percocet 5-325mg Tab) 1 tab Q4H PRN PO 02/16/17 03:30 03/02/17 03:29 Hydromorphone HCl (Dilaudid Inj) 0.6 mg Q3H PRN IV 02/16/17 03:30 03/02/17 03:29 Menthol (Nice Natalie) 1 natalie PRN PRN PO 02/16/17 05:45 03/18/17 05:44 02/16/17 05:54 1 NATALIE Hydralazine HCl (HydrALAZINE INJ) 10 mg Q6 PRN IV. 02/16/17 09:15 03/18/17 09:14 02/19/17 19:33 10 MG Glucose (Glucose 40% Gel) 15-30 GRAMS 15 GRAMS... UD PRN PO 02/16/17 09:15 03/18/17 09:14 Glucose (Glucose Chew Tab) 4-8 Tablets 4 Tabl... UD PRN PO 02/16/17 09:15 03/18/17 09:14 Dextrose (Dextrose 50% 50ML Syringe) 25-50ML OF 50% DW IV FOR... UD PRN IV 02/16/17 09:15 03/18/17 09:14 Glucagon (Glucagon Inj) 1 mg UD PRN SQ 02/16/17 09:15 03/18/17 09:14 Tamsulosin HCl (Flomax Cap) 0.4 mg HS PO 02/17/17 21:00 03/19/17 20:59 02/19/17 20:16 0.4 MG Calcium Carbonate (Tums Chew Tab) Take 1-2 tablets PRN ... Q6H PRN PO 02/17/17 12:00 03/19/17 11:59 02/18/17 03:25 1,000 MG Sodium Chloride 1,000 ml @ 80 mls/hr [id number] IV 02/18/17 02:45 03/20/17 02:44 02/20/17 05:15 80 MLS/HR Valsartan (Diovan Tab) 160 mg DAILY PO 02/19/17 09:00 03/21/17 08:59 02/20/17 07:56 160 MG Hydrochlorothiazide (Hydrochlorothiazide Tab) 25 mg DAILY PO 02/19/17 09:00 03/21/17 08:59 02/20/17 07:56 25 MG Metoprolol Succinate (Toprol Xl Tab) 12.5 mg QAM PO 02/19/17 09:00 03/21/17 08:59 02/20/17 07:57 12.5 MG Insulin Aspart (novoLOG ASPART) SLIDING SCALE If C... ACHS SC 02/19/17 12:00 03/21/17 11:59 02/19/17 12:20 2 UNITS Apixaban (Eliquis Tab) 2.5 mg BID PO 02/19/17 19:00 03/21/17 18:59 02/20/17 07:57 2.5 MG Objective Vital Signs Date Time Temp Pulse Resp B/P (MAP) Pulse Ox O2 Delivery O2 Flow Rate FiO2 02/20/17 00:21 96 Room Air 02/20/17 00:02 36.8 109 19 162/64 (96) 94 Room Air 02/19/17 20:00 96 Room Air 02/19/17 19:05 36.8 87 18 183/74 (110) 96 Room Air 02/19/17 16:00 95 Room Air 12/24/17 15:00 36.5 82 18 165/84 (111) 97 Room Air 02/19/17 12:00 96 Room Air 02/19/17 10:40 36.5 84 20 176/86 (116) 96 Room Air 02/19/17 08:00 95 Room Air 02/19/17 07:18 36.7 84 20 154/100 (118) 96 Room Air 180/75 (110) 02/19/17 04:13 95 Room Air 02/19/17 03:54 36.6 83 18 129/70 (89) 96 Room Air Physical Exam Comments: General Appearance: WD/WN, no apparent distress Eyes: sclerae normal ENT: hearing grossly normal, + decreased pharyngeal erythema Neck: supple, no JVD, trachea midline Respiratory/Chest: no respiratory distress, no accessory muscle use Cardiovascular: regular rate, rhythm, no gallop, no murmur Abdomen: + hyperactive bowel sounds, + distended (softer around epigastric and suprapubic regions compared to yesterday) Extremities: no pedal edema, no calf tenderness Neurologic/Psychiatric: alert, oriented x 3 Skin: normal color, warm/dry Laboratory Results Last 24 Hours Test 02/19/17 06:26 02/19/17 06:42 02/19/17 11:21 02/19/17 16:17 Activated Partial Thromboplast Time 54.1 SECONDS Partial Thromboplastin Ratio 2.1 Bedside Glucose 160 mg/dl 226 mg/dl 191 mg/dl Test 02/19/17 20:37 Bedside Glucose 182 mg/dl Assessment and Plan Mr. Bear is an 86 y/o male with PMHx of T2DM, HTN, Mild Anemia, and DJD who is S/P ex lap with small bowel diverticulosis. New onset A.fib Heparin drip running. will switch to eliquis tonight HR has been controlled Patient does not want warfarin after discussing options. Coupon for 30 day trial and 10 day copay for subsequent months will be giving to patient. Risk and benefits already discussed with patient. Question were answered to daughter with permission of patient. Small Bowel Diverticulosis S/P Ex Lap: -management by primary team - Pain management, IVF, PT/OT, and DVT Prophylaxis per primary service - Will hold ASA 81 mg daily and appreciate Surg recommendation on reinstitution after surgery -no BM as of yet. will monitor. Patient on reglan. Lactic Acidosis: - resolved T2DM: A1c 5.6 - Given patient age and risk of hypoglycemia - question if medication is necessary but would defer this to PCP - Hold Metformin and Glimepiride due to surgery and NPO status - cover with liberalized SSI - BSG ACHS when diet advanced HTN: - On Diovan -was held for surgery and to aassess renal function - Cover with Hydralazine PRN Mild Anemia - Anemia of Chronic Disease: STABLE - Minimal EBL during surgery and at baseline - no intervention necessary but will monitor Thank you for the consultation. Hospitalist will continue to follow. Continued [facility] stay due to: multiple IV medications needed Discharge planning: home
[2017-02-20] MEDS: SODIUM CHLORIDE 0.9% 1000ML 1,000 ML IV SCH (05:15)
[2017-02-20] MEDS: INSULIN ASPART 100 UNITS/ML 3 ML PEN SC SCH ×2 (07:00→12:25)
--- NOTE | 2017-02-20 07:40 | Surgery Progress Note ---
Surgery Progress Note Date of Service Feb 20, 2017. Subjective Post OP Day: 5 + feeling well, + ambulating, + flatus, + pain controlled, No complaints, No bowel movement, No nausea, No vomiting Patient sitting up in bed- eager to get home today if possible. Objective Vital Signs: Date Time Temp Pulse Resp B/P (MAP) Pulse Ox O2 Delivery O2 Flow Rate FiO2 02/20/17 07:02 36.5 83 16 155/75 (101) 95 Room Air 02/20/17 04:11 96 Room Air 02/20/17 03:57 36.8 83 19 156/93 (114) 95 Room Air 02/20/17 00:21 96 Room Air 02/20/17 00:02 36.8 109 19 162/64 (96) 94 Room Air 02/19/17 20:00 96 Room Air 02/19/17 19:05 36.8 87 18 183/74 (110) 96 Room Air 02/19/17 16:00 95 Room Air 02/19/17 15:00 36.5 82 18 165/84 (111) 97 Room Air 02/19/17 12:00 96 Room Air 02/19/17 10:40 36.5 84 20 176/86 (116) 96 Room Air 02/19/17 08:00 95 Room Air General Appearance: WD/WN, no apparent distress Head: normocephalic, atraumatic Respiratory/Chest: no respiratory distress, no accessory muscle use Abdomen: + pertinent finding (distention continues to improve, abdomen softer today, mildly tender at incision site. ) Incision(s): clean, dry, intact Laboratory Results: Results Past 24 Hours Test 02/19/17 11:21 02/19/17 16:17 02/19/17 20:37 02/20/17 04:07 Range/Units Bedside Glucose 226 191 182 160 70-99 mg/dl Test 02/20/17 06:51 Range/Units Bedside Glucose 146 70-99 mg/dl Assessment & Plan POD #5 Ex Lap- small bowel diverticulosis Patient seen and examined with Dr. Carlisle. Pain controlled, tolerating clear liquid diet, will advance diet. Passing flatus, but no BM yet. Patient ambulating without incident. Patient would love to be discharged today. Feels that he would improve faster if at home. Daughter is physician- he feels comfortable being home because she is there. Will discuss possible discharge with [employer]. Ok to discharge if tolerating regular diet at lunch. Anticoagulation per medicine team. Patient to follow-up with Dr. Delacruz as outpatient after discharge. POD #4 s/p Ex Lap- small bowel diverticulosis Reviewed Abdomen 2 view- No significant change in the multiple mildly dilated gas-filled loops of large and small bowel seen throughout the abdomen. Findings suggest a postoperative ileus at this time. Pain is controlled. No nausea or vomiting. Passing flatus. No BM yet. Will advance diet to clear liquids and see how he tolerates. May ambulate- encourage ambulation- will D/C SCDs. Anticoagulation per medicine team. Will continue to follow. Patient seen and examined with Dr. Estrada. Electronically signed by: Yordy Manning M.D. 02/18/2017 10:19 AM Dictated Date/Time: 02/18/2017 10:18 AM POD #3 s/p Explor Lap- small bowel diverticulosis Patient seen and examined with Dr. Estrada. Curiel to remain in place. Patient reports that he is doing well- no nausea or vomiting, pain controlled. Abdomen still distended- will order Abdomen 2 View. Will continue to follow- call with questions.
[2017-02-20] MEDS: HYDROCHLOROTHIAZIDE 25 MG TAB PO SCH (07:56)
[2017-02-20] MEDS: VALSARTAN 80 MG TAB PO SCH (07:56)
[2017-02-20] MEDS: APIXABAN 2.5 MG TAB PO SCH (07:57)
[2017-02-20] MEDS: METOPROLOL SUCC 25MG EXT REL TAB PO SCH (07:57)
[2017-02-20] MEDS ORDERED: METOPROLOL SUCC 25MG EXT REL TAB PO ONE (10:00)
[2017-02-20] MEDS ORDERED: FLM4 PO (10:01)
[2017-02-20] MEDS ORDERED: ELQ25 PO (10:01)
[2017-02-20] MEDS ORDERED: TPRSR25 PO (10:01)
--- NOTE | 2017-02-20 10:13 | Progress Note ---
Subjective Date of Service: Feb 20, 2017. Subjective Pt evaluation today including: conversation w/ patient, physical exam 86 yo male reports finally having a large formed BM. Patient denies any discomfort, chest pain, nausea, vomting. Patient is excited because he heard he will be discharged today by surgical team. Patient has been ambulating around the hospital. Problem List Medical Problems: (1) Abdominal pain Status: Acute Review of Systems Constitutional: No fever, No chills Respiratory: No cough, No sputum Cardiac: No chest pain, No palpitations Abdomen: No pain, No nausea Neurologic: No memory loss, No paralysis Heme: No abnormal bleeding/bruising All Other Systems: Reviewed and Negative Medications Current Inpatient Medications Medications (Trade) Dose Ordered Sig/Damaso Route Start Time Stop Time Status Last Admin Dose Admin Ondansetron HCl (Zofran Inj) 4 mg Q4H PRN IV 02/16/17 03:30 03/18/17 03:29 02/16/17 05:18 4 MG Acetaminophen (Tylenol Tab) 650 mg Q6H PRN PO 02/16/17 03:30 03/18/17 03:29 02/17/17 01:59 650 MG Oxycodone/ Acetaminophen (Percocet 5-325mg Tab) 1 tab Q4H PRN PO 02/16/17 03:30 03/02/17 03:29 Hydromorphone HCl (Dilaudid Inj) 0.6 mg Q3H PRN IV 02/16/17 03:30 03/02/17 03:29 Menthol (Nice Frances) 1 frances PRN PRN PO 02/16/17 05:45 03/18/17 05:44 02/16/17 05:54 1 FRANCES Hydralazine HCl (HydrALAZINE INJ) 10 mg Q6 PRN IV. 02/16/17 09:15 03/18/17 09:14 02/19/17 19:33 10 MG Glucose (Glucose 40% Gel) 15-30 GRAMS 15 GRAMS... UD PRN PO 02/16/17 09:15 03/18/17 09:14 Glucose (Glucose Chew Tab) 4-8 Tablets 4 Tabl... UD PRN PO 02/16/17 09:15 03/18/17 09:14 Dextrose (Dextrose 50% 50ML Syringe) 25-50ML OF 50% DW IV FOR... UD PRN IV 02/16/17 09:15 03/18/17 09:14 Glucagon (Glucagon Inj) 1 mg UD PRN SQ 02/16/17 09:15 03/18/17 09:14 Tamsulosin HCl (Flomax Cap) 0.4 mg HS PO 02/17/17 21:00 03/19/17 20:59 02/19/17 20:16 0.4 MG Calcium Carbonate (Tums Chew Tab) Take 1-2 tablets PRN ... Q6H PRN PO 02/17/17 12:00 03/19/17 11:59 02/18/17 03:25 1,000 MG Sodium Chloride 1,000 ml @ 80 mls/hr [id number] IV 02/18/17 02:45 03/20/17 02:44 02/20/17 05:15 80 MLS/HR Valsartan (Diovan Tab) 160 mg DAILY PO 02/19/17 09:00 03/21/17 08:59 02/20/17 07:56 160 MG Hydrochlorothiazide (Hydrochlorothiazide Tab) 25 mg DAILY PO 02/19/17 09:00 03/21/17 08:59 02/20/17 07:56 25 MG Metoprolol Succinate (Toprol Xl Tab) 12.5 mg QAM PO 02/19/17 09:00 03/21/17 08:59 02/20/17 07:57 12.5 MG Insulin Aspart (novoLOG ASPART) SLIDING SCALE If C... ACHS SC 02/19/17 12:00 03/21/17 11:59 02/19/17 12:20 2 UNITS Apixaban (Eliquis Tab) 2.5 mg BID PO 02/19/17 19:00 03/21/17 18:59 02/20/17 07:57 2.5 MG Objective Vital Signs Date Time Temp Pulse Resp B/P (MAP) Pulse Ox O2 Delivery O2 Flow Rate FiO2 02/20/17 08:00 95 Room Air 02/20/17 07:02 36.5 83 16 155/75 (101) 95 Room Air 02/20/17 04:11 96 Room Air 02/20/17 03:57 36.8 83 19 156/93 (114) 95 Room Air 02/20/17 00:21 96 Room Air 02/20/17 00:02 36.8 109 19 162/64 (96) 94 Room Air 02/19/17 20:00 96 Room Air 02/19/17 19:05 36.8 87 18 183/74 (110) 96 Room Air 02/19/17 16:00 95 Room Air 02/19/17 15:00 36.5 82 18 165/84 (111) 97 Room Air 02/19/17 12:00 96 Room Air 02/19/17 10:40 36.5 84 20 176/86 (116) 96 Room Air Physical Exam Comments: General Appearance: WD/WN, no apparent distress Eyes: sclerae normal ENT: hearing grossly normal, + decreased pharyngeal erythema Neck: supple, no JVD, trachea midline Respiratory/Chest: no respiratory distress, no accessory muscle use Cardiovascular: regular rate, rhythm, no gallop, no murmur Abdomen: + hyperactive bowel sounds, + distended (softer around epigastric and suprapubic regions compared to yesterday) Extremities: no pedal edema, no calf tenderness Neurologic/Psychiatric: alert, oriented x 3 Skin: normal color, warm/dry Laboratory Results Last 24 Hours Test 02/19/17 11:21 02/19/17 16:17 02/19/17 20:37 02/20/17 04:07 Bedside Glucose 226 mg/dl 191 mg/dl 182 mg/dl 160 mg/dl Test 02/20/17 06:51 Bedside Glucose 146 mg/dl Assessment and Plan Mr. Bear is an 86 y/o male with PMHx of T2DM, HTN, Mild Anemia, and DJD who is S/P ex lap with small bowel diverticulosis. New onset A.fib Patient tolerated Eliquis. Patient already on beat jimmie, HR is around low 90s high 80s will increase to 25 mg PO daily HR has been controlled will f/u with PCP in one week. Patient does not want warfarin after discussing options. Coupon for 30 day trial and 10 day copay for subsequent months will be giving to patient. Risk and benefits already discussed with patient. Question were answered to daughter with permission of patient. Small Bowel Diverticulosis S/P Ex Lap: -management by primary team - Pain management, IVF, PT/OT, and DVT Prophylaxis per primary service - Will hold ASA 81 mg daily and appreciate Surg recommendation on reinstitution after surgery -no BM as of yet. will monitor. Patient on reglan. Lactic Acidosis: - resolved T2DM: A1c 5.6 - Given patient age and risk of hypoglycemia - question if medication is necessary but would defer this to PCP - Hold Metformin and Glimepiride due to surgery and NPO status - cover with liberalized SSI - BSG ACHS when diet advanced HTN: - On Diovan -was held for surgery and to aassess renal function - Cover with Hydralazine PRN Mild Anemia - Anemia of Chronic Disease: STABLE - Minimal EBL during surgery and at baseline - no intervention necessary but will monitor Thank you for the consultation. Hospitalist will continue to follow. Continued [facility] stay due to: multiple IV medications needed Discharge planning: home
--- NOTE | 2017-02-20 10:19 | Consultant Recommendations ---
Store Stock Associate Recommendations Date of Service Feb 20, 2017. Store Stock Associate Recommendations Patient will continue with Eiqius on 2.5 mg Twice a day. Followup with primary care provider in about 1-2 weeks Followup with Urology Dr. Holliday in 7 days to remove ro. We started a beta jimmie which decreases your heart rate since you have a fast heart beat from atrial fibrillation. Be sure to stand up from a seated position slowly as you may feel lightheaded if you stand up fast.
--- NOTE | 2017-02-20 11:36 | Progress Note ---
Subjective Date of Service: Feb 20, 2017. Subjective Pt evaluation today including: conversation w/ patient, conversation w/ family , lab review pt tolerating ro denies ever seeing a urologist in past will leave ro in for 1 week Problem List Medical Problems: (1) Abdominal pain Status: Acute Objective Vital Signs Date Time Temp Pulse Resp B/P (MAP) Pulse Ox O2 Delivery O2 Flow Rate FiO2 02/20/17 11:28 36.5 83 16 95 Room Air 02/20/17 08:00 95 Room Air 02/20/17 07:02 36.5 83 16 155/75 (101) 95 Room Air 02/20/17 04:11 96 Room Air 02/20/17 03:57 36.8 83 19 156/93 (114) 95 Room Air 02/20/17 00:21 96 Room Air 02/20/17 00:02 36.8 109 19 162/64 (96) 94 Room Air 02/19/17 20:00 96 Room Air 02/19/17 19:05 36.8 87 18 183/74 (110) 96 Room Air 02/19/17 16:00 95 Room Air 02/19/17 15:00 36.5 82 18 165/84 (111) 97 Room Air 02/19/17 12:00 96 Room Air Laboratory Results Last 24 Hours Test 02/19/17 16:17 02/19/17 20:37 02/20/17 04:07 02/20/17 06:51 Bedside Glucose 191 mg/dl 182 mg/dl 160 mg/dl 146 mg/dl Test 02/20/17 10:54 Bedside Glucose 253 mg/dl Assessment and Plan leave ro inn for 7 to 10 days because of traumatic placement Phone number of office given to pt Continued [facility] stay due to: multiple IV medications needed Discharge planning: home
--- NOTE | 2017-02-28 14:57 | Discharge Summary ---
Discharge Summary Dates Admission Date / Time: Feb 16, 2017 at 03:32 Discharge Date: Feb 20, 2017 Dispostion / Condition Discharge Disposition: Home Condition at Discharge: Good Principal Diagnosis (1) Acute abdominal pain Problem List (1) Diverticulosis, small intestine (2) New onset a-fib (3) Urinary retention (4) Diabetes Consultations / Procedures Consultations: Hospitalist Urologist Procedures: Diagnostic Laparoscopy , exploratory laparotomy Insertion of Ro Catheter post-op Pending Studies / Follow-Up None Medication Reconciliation New Medications: Oxycodone/Acetaminophen 5MG/325MG (Percocet 5MG/325MG) Tab 1 TABLET PO Q4H PRN for Pain, #18 TAB Apixaban (Eliquis) 2.5 Mg Tab 2.5 MG PO BID for 30 Days, #60 TAB Metoprolol Succinate (Metoprolol Succinate ER) 25 Mg Tabcr 25 MG PO QAM for 30 Days, #30 TAB 0 Refills Tamsulosin HCl (Tamsulosin HCl) 0.4 Mg Cap 0.4 MG PO HS for 30 Days, #30 CAP Continued Medications: Aspirin (Aspirin Ec) 81 Mg Tab 81 MG PO DAILY Desloratadine (Clarinex) 5 Mg Tab 5 MG PO DAILY, TAB Glimepiride (Glimepiride) 1 Mg Tab 1 MG PO DAILY, TAB Metformin Hcl (Glucophage) 500 Mg Tab 500 MG PO DAILY, TAB Valsartan/Hctz (Diovan Hct 160MG/25MG) 1 Tab Tab 1 TAB PO DAILY, TAB Admission HPI Per the Admitting provider: The patient is an 86 year old male who presents to the Emergency Room with complaints of constant RUQ abdominal pain starting this evening. The pain started while he was eating a hamburger for dinner. He did not finish his dinner. He had noticed some abdominal bloating over the past few days. He also has pain in his back where his abdominal pain is located. He denies having any pain with deep breaths. He notes that he had a gallbladder attack 20 years ago which felt similar to his current abdominal pain. I saw pt at ER, I reviewed pt's H/P with pt and his family members, , daughter, now pt feels better, but pt is still have some RUQ pain, no nausea, no vomiting, pt denies diarrhea, no bloody stool, no fever, pt denies anders- umbilical pain. Hospital Course (1) Acute abdominal pain Patient was found to have pneumatosis of the small bowel in rozina upper and left upper abdomen with pneumoperitoneum in the upper abdomen on CT scan of abdomen and pelvis. Lactic acid was 2.6. Therefore he was taken to operating room for diagnostic laparoscopy, exploratory laparotomy. Was found to have multiple small bowel diverticulosis however no evidence of ischemic bowel or bowel perforation. Abdomen was closed and patient was transferred to recovery in stable condition. Patient was then transferred to medical/surgical floor for post operative care. He was kept NPO, started on IV fluids, IV antibiotics in the formed of Cipro/Flagyl, IV pain medication with Dilaudid and PO Percocet, IV Zofran as needed for nausea, activity as tolerated, and SCDs. Patient evaluated on POD # 0 and was still having moderate RUQ abdominal pain but slightly improved compared to arriving in the ER. No nausea or vomiting. No return of bowel function. He was kept NPO and encouraged to ambulate. Hospitalist was consulted for comanagement given other comorbidities. POD # 1 patient had moderate abdominal distention without return of bowel function. KUB showed diffuse gaseous distention of the small and large bowel consistent with post op ileus. His pain was controlled. However he was having urinary retention overnight on POD # 0 and required fluid bolus plus insertion of Ro catheter. Urology consulted, advised to keep Ro in for 7-10 days and voiding trial as an outpatient. Flomax was started. POD # 2 patient was still distended , repeat abdominal xray showed no signifnicant improvement of gaseous distention. Diet was advanced to clear liquids as he was passing flatus. Patient developed increased heart rate and cough in the evening. He was found to be in new onset atrial fibrillation and was transferred to Telemetry and was given Lopressor 5 mg x 2 doses. Heparin drip was also started. Eliquis was started that evening as patient refused warfarin. POD # 3 patient tolerating clears, ambulating, pain improved, passing flatus but no bowel movement. POD # 4 patients diet was advanced as his pain was controlled and was eager to get home. Large formed bowel movement later in the day prior to discharge. He was discharged home with pain medication, Flomax, beta jimmie, and Eliquis for his urinary retention, post op pain, and new onset afib. Overall hospital course uneventful. (2) Diverticulosis, small intestine Multiple small bowel diverticulosis without perforation as a finding during exploratory laparotomy. Required no resection. Please see above post op course (3) New onset a-fib onset on POD # 2, transferred to Telemetry and started on IV Heparin drip and Eliquis. Please see above. (4) Urinary retention Onset evening of POD # 0. Required fluid bolus and then ro catheter, discharged home with Ro catheter for voiding trail as an outpatient. Started and continued on Flomax. (5) Diabetes Patient's Diabetes was monitored by Hospitalist during his post operative stay. His Metformin and Glimepiride were held and he was placed on Insulin sliding scale. Medications were continued at discharge. Discharge Instructions as given to patient Copies To Primary Care Provider: Merlin Cisneros M.D.. Problem Qualifiers (1) Diverticulosis, small intestine: Diverticulosis bleeding: diverticulosis without bleeding Qualified Codes: K57.10 - Diverticulosis of small intestine without perforation or abscess without bleeding (2) Diabetes: Diabetes mellitus type: type 2
--- NOTE | 2017-03-07 16:10 | EDITING REQUIRED CODING QUERY ---
Dr. Delacruz, Your help is needed for correct coding of this account; please clarify if the patients post-operative ileus was: ( ) expected out of the surgery ( ) unexpected complication from the surgery ( ) other, please specify Thank you for your time, DARYN Montiel, BRIDGE MAINTAINER
== END 2017-02-20 13:57 | disposition home or self-care (01) | DRG 357 ==
LOC: EDBD 20:15 → C.EDA 20:16 → C.MSN 02-16 03:32 → ENRESERV 02-16 04:22 → C.2T 02-18 02:13
PROVIDERS: ADMIT Surgery; ATTEND Surgery
PROC: 0WJG0ZZ Inspection of Peritoneal Cavity, Open Approach (ICD-10-PCS; principal; 2017-02-16)
PROC: 0WJP4ZZ Inspection of Gastrointestinal Tract, Percutaneous Endoscopic Approach (ICD-10-PCS; principal; 2017-02-16)
PROC: 0WJP0ZZ Inspection of Gastrointestinal Tract, Open Approach (ICD-10-PCS; principal; 2017-02-16)
PROC: 0WJG4ZZ Inspection of Peritoneal Cavity, Percutaneous Endoscopic Approach (ICD-10-PCS; principal; 2017-02-16)
DX: K57.10 Diverticulosis of small intestine without perforation or abscess without bleeding (principal); K56.7 Ileus, unspecified; E87.2 Acidosis; T83.83XA Hemorrhage due to genitourinary prosthetic devices, implants and grafts, initial encounter; Y73.2 Prosthetic and other implants, materials and accessory gastroenterology and urology devices associated with adverse incidents; Y92.239 Unspecified place in hospital as the place of occurrence of the external cause; R10.11 Right upper quadrant pain; K63.89 Other specified diseases of intestine; R93.3 Abnormal findings on diagnostic imaging of other parts of digestive tract; I48.91 Unspecified atrial fibrillation; R33.9 Retention of urine, unspecified; R06.2 Wheezing; I10 Essential (primary) hypertension; E11.9 Type 2 diabetes mellitus without complications; D63.8 Anemia in other chronic diseases classified elsewhere; N40.1 Benign prostatic hyperplasia with lower urinary tract symptoms; M19.90 Unspecified osteoarthritis, unspecified site; E66.9 Obesity, unspecified; Z68.30 Body mass index [BMI] 30.0-30.9, adult; Z53.31 Laparoscopic surgical procedure converted to open procedure; Z87.891 Personal history of nicotine dependence; Z79.82 Long term (current) use of aspirin; Z79.4 Long term (current) use of insulin; Z79.899 Other long term (current) drug therapy

== ENCOUNTER → 2017-09-18 | Outpatient (CLI) | payer OTHER ==
[~2017-09-18] MED LIST: ASPI81TA28 PO; CLR/5 PO; ELQ25 PO; FLM4 PO; GLC/500 PO; GLIM1TAB2 PO; TPRSR25 PO; VALS160T60 PO
[2017-09-18 09:39] LABS: BASO % 0.3 %; BASO ABS # 0.02 K/uL (0-0.2); EOS % 4.5 %; EOS ABS # 0.26 K/uL (0-0.5); HEMATOCRIT 34.8 % (42-52); HEMOGLOBIN 12.1 g/dL (14.0-18.0); IG# 0.04 K/uL (0.00-0.02); LYMPH % 29.9 %; LYMPH ABS # 1.73 K/uL (1.2-3.4); MEAN CELL VOLUME 91.1 fL (80-100); MEAN CORPUSCULAR HEMOGLOBIN 31.7 pg (25-34); MEAN CORPUSCULAR HGB CONC 34.8 g/dl (32-36); MEAN PLATELET VOLUME 9.2 fL (7.4-10.4); MONO % 11.7 %; MONO ABS # 0.68 K/uL (0.11-0.59); NEUT % 52.9 %; NEUT ABS # 3.06 K/uL (1.4-6.5); PLATELET COUNT 193 K/uL (130-400); WHITE BLOOD COUNT 5.79 K/uL (4.8-10.8)
[2017-09-18 10:04] LABS: ALBUMIN 3.4 gm/dl (3.4-5.0); ALKALINE PHOSPHATASE 107 U/L (45-117); ALT/SGPT 18 U/L (12-78); AST/SGOT 16 U/L (15-37); BLOOD UREA NITROGEN 18 mg/dl (7-18); CALCIUM 8.9 mg/dl (8.5-10.1); CARBON DIOXIDE 25 mmol/L (21-32); CREATININE 1.29 mg/dl (0.60-1.40); GLUCOSE 133 mg/dl (70-99); POTASSIUM 3.5 mmol/L (3.5-5.1); SODIUM 138 mmol/L (136-145); TOTAL PROTEIN 7.4 gm/dl (6.4-8.2)
[2017-09-18 10:19] LABS: HEMOGLOBIN A1C 6.1 % (4.5-5.6)
== END | disposition home or self-care (01) ==
LOC: C.LAB1850 08:38
PROVIDERS: ATTEND Internal Medicine Pulmonary Disease
DX: E11.9 Type 2 diabetes mellitus without complications (principal)

== ENCOUNTER 2018-06-14 12:41 | Inpatient (IN) ==
[2018-06-14] MEDS ORDERED: SODIUM CHLORIDE 0.9% 1000ML 1,000 ML IV SCH (12:45)
--- NOTE | 2018-06-14 12:55 | CT Scan Report ---
CT SCAN OF THE BRAIN WITHOUT IV CONTRAST CLINICAL HISTORY: Strokelike symptoms. COMPARISON STUDY: No priors. TECHNIQUE: Unenhanced axial CT scan of the brain is performed from the vertex to the skull base. A do se lowering technique was utilized adhering to the principles of ALARA. CT DOSE: 638.56 mGycm FINDINGS: Brain parenchyma: There are age-related involutional changes noting mild to moderate subcortical and periventricular microangiopathic change. There is no hemorrhage, mass effect, or evidence of acute t erritorial ischemia by CT criteria. Lopes-white matter differentiation is preserved. No extra-axial fl uid collection is seen. Ventricles, sulci, cisterns: Prominent secondary to involutional change. Intracranial vasculature: There is atherosclerotic calcification of the cavernous carotid and vertebr al arteries. Calvarium: Unremarkable. Soft tissues: There is a small lipoma in the left frontal scalp. Sinuses and mastoids: The visualized paranasal sinuses are clear. The mastoid air cells are well pneu matized. Orbits: The bony orbits are grossly intact. IMPRESSION: There is no hemorrhage, mass effect, or evidence of acute territorial ischemia by CT amadna colbert. Electronically signed by: Mandeep Rivera M.D. 06/14/2018 12:53 PM
[2018-06-14] MEDS ORDERED: OPTIRAY 320 125ml IV PRN (13:00)
--- NOTE | 2018-06-14 13:07 | CT Scan Report ---
CT angio neck with con HISTORY: Mental status change stroke TECHNIQUE: Multiaxial CT angiography of the neck was performed IV contrast: 100 cc All measure ments were calculated based on NASCET criteria. Maximum intensity projection images were also obtain ed. A dose lowering technique was utilized adhering to the principles of ALARA. COMPARISON STUDY: None. FINDINGS: The aortic arch and proximal great vessels are widely patent. There is no significant sten osis, occlusion, or dissection identified within the bilateral common carotid, internal carotid, or v ertebral arteries. Mild scattered plaque formation throughout the carotid systems. IMPRESSION: No significant stenosis, occlusion, or dissection identified within the carotid or vertebral arteries . Minimal/mild plaque formation The above report was generated using voice recognition software. It may contain grammatical, syntax or spelling errors. Electronically signed by: Manjit Nino M.D. 06/14/2018 1:06 PM
--- NOTE | 2018-06-14 13:09 | CT Scan Report ---
CT angio head w con HISTORY: Mental status change stroke TECHNIQUE: Multiaxial CT angiography of the head was performed IV contrast: None. Maximum in tensity projection images were also obtained. A dose lowering technique was utilized adhering to the principles of ALARA. COMPARISON: None. FINDINGS: There is no mass, hematoma, midline shift, or acute infarct. Visualized intracranial tech intern al carotid arteries, distal vertebral arteries, and basilar artery are widely patent. There is no sig nificant stenosis, occlusion, or aneurysm seen within the bilateral ACAs, MCAs, or globe mounter. Moderate arjun que formation at the carotid siphons IMPRESSION: No significant stenosis, occlusion, or aneurysm within the [place] of [place]. Mild scattered plaque fo rmation. No significant stenotic process. The above report was generated using voice recognition software. It may contain grammatical, syntax or spelling errors. Electronically signed by: Manjit Nino M.D. 06/14/2018 1:07 PM
[2018-06-14 13:18] LABS: Basophils # (auto) 0.02 K/uL (0-0.2); Basophils % (auto) 0.3 %; Eosinophils # (auto) 0.08 K/uL (0-0.5); Eosinophils % (auto) 1.3 %; Hematocrit (blood only) 35.2 % (42-52); Hemoglobin 12.1 g/dL (14.0-18.0); Immature Granulocytes # (auto) 0.01 K/uL (0.00-0.02); Immature Granulocytes % (auto) 0.2 %; Lymphocytes # (auto) 0.81 K/uL (1.2-3.4); Lymphocytes % (auto) 13.6 %; Mean Corpuscular Hgb Conc 34.4 g/dL (32-36); Mean Corpuscular Volume 89.8 fL (80-100); Mean Platelet Volume 8.5 fL (7.4-10.4); Monocytes # (auto) 0.51 K/uL (0.11-0.59); Monocytes % (auto) 8.6 %; Neutrophils # (auto) 4.52 K/uL (1.4-6.5); Platelet Count 195 K/uL (130-400); RDW Coefficient of Variation 13.5 % (11.5-14.5); Red Blood Count 3.92 M/uL (4.7-6.1); White Blood Count 5.95 K/uL (4.8-10.8)
[2018-06-14 13:35] LABS: INR 1.2 (0.9-1.1); Partial Thromboplastin Ratio 0.9; Partial Thromboplastin Time 25.4 Seconds (21.0-31.0); Prothrombin Time 11.7 Seconds (9.0-12.0)
[2018-06-14 13:36] LABS: Alanine Aminotransferase 18 U/L (12-78); Albumin Level 3.3 gm/dl (3.4-5.0); Aspartate Aminotransferase 15 U/L (15-37); BUN Creatinine Ratio 13.4 (10-20); Blood Urea Nitrogen 17 mg/dl (7-18); Calcium 9.4 mg/dl (8.5-10.1); Carbon Dioxide 26 mmol/L (21-32); Chloride 99 mmol/L (98-107); Creatinine Clr Calc Pharmacy 43.1 ml/min; Est GFR (African American) 59.3; Est GFR (Non-African American) 51.2; Glucose 249 mg/dl (70-99); Magnesium 2.1 mg/dl (1.8-2.4); Potassium 3.5 mmol/L (3.5-5.1); Sodium 133 mmol/L (136-145)
[2018-06-14 13:41] LABS: Albumin Globulin Ratio 0.8 (0.9-2); Alkaline Phosphatase 114 U/L (45-117); Bilirubin,Total 0.6 mg/dl (0.2-1); Globulin 3.9 gm/dl (2.5-4.0); Total Protein 7.2 gm/dl (6.4-8.2); Troponin I < 0.015 ng/ml (0-0.045)
--- NOTE | 2018-06-14 14:19 | Emergency Department Note ---
Entered by Ana Laura Costello acting as a scribe for Terell Sinclair DO History of Present Illness General Chief complaint: Stroke Alert Stated complaint: stroke alert Source: patient and EMS History of Present Illness Onset (ago): hour(s) (1.5) Location: head Pain Consistency: + other (episode) Quality: + other (altered mental status) Associated symptoms: + denies other symptoms (focal deficits) and + other (slurred speech, aphasia, headache, weakness, light-headedness, dizziness); no headaches The patient is a 87 year old male that is presenting to the Emergency Room with complaints of an episode of altered mental status that started at 1.5 hours ago at 1125 this morning while the patient was at a . The patient reports that he started feeling dizzy, light-headed and weak while he was at the home. He states that he drove home and his symptoms worsened. The patient's family noted that the patient started having slurred speech and aphasia, forgetting his granddaughter's name and the word for pen. The family reported that the patient could not remember where he lived. He denies having any focal deficits or headaches. The patient denies any history of strokes and does not know if he has a history of irregular heart rates. He states he takes Elliquis which he took last night. He notes that he took all prescribed medication last yesterday, but he admits that he is not always compliant with his medication regiment. He reports that he feels at baseline currently but had difficulty stating what year it is. Home Medications Home Medications Medication Instructions Recorded Confirmed Type apixaban [Eliquis] 2.5 mg PO BID 06/14/18 06/14/18 History desloratadine [Clarinex] 5 mg PO DAILY PRN 06/14/18 06/14/18 History glimepiride 1 mg PO QAM 06/14/18 06/14/18 History ketoconazole 1 applic TOPICAL BID PRN 06/14/18 06/14/18 History losartan-hydrochlorothiazide 1 tab PO DAILY 06/14/18 06/14/18 History [Hyzaar] metformin [Glucophage] 500 mg PO BID 06/14/18 06/14/18 History metoprolol succinate [Toprol XL] 25 mg PO QAM 06/14/18 06/14/18 History triamcinolone acetonide 1 spray INTRANASAL BID PRN 06/14/18 06/14/18 History triamterene-hydrochlorothiazid 1 tab PO DAILY PRN 06/14/18 06/14/18 History Allergies Allergy/AdvReac Type Severity Reaction Status Date / Time No Known Allergies Allergy Unverified 06/14/18 15:03 Past Med/Surg History Medical History Diabetes (Chronic) Acute abdominal pain (Acute) Diverticulosis, small intestine (Chronic) New onset a-fib (Acute) Urinary retention (Acute) Family History Other Family history non-contributory Social History Preferred Language: Maltese marital status: Current Living Situation: Spouse current occupational status: retired Feels Safe at Home: Yes Smoking Status: Light tobacco smoker Review of Systems See HPI for pertinent positives & negatives. and A total of 10 systems reviewed and were otherwise negative Physical Exam Vital Signs Vital Signs - 24 hr 06/14/18 12:50 06/14/18 13:01 06/14/18 13:10 Temperature 36.8 C Temperature Source Oral Sepsis Recent Fever Within 48 Hours No Sepsis New/Unexplained Change in Mental Status No Sepsis Action Taken by Nursing No Action Required Pulse Rate 68 78 79 Pulse Rate [Apical] Pulse Rate from SpO2 Sensor 70 71 Pulse Rhythm Regular Pulse Rhythm [Apical] Pulse Strength Normal Respiratory Rate 20 21 20 Respiratory Effort / Characteristics Non-Labored Spontaneous Respiratory Depth Normal Respiratory Pattern Regular Blood Pressure Blood Pressure [Right Arm] Blood Pressure Mean Blood Pressure Mean [Right Arm] Blood Pressure Position [Right Arm] Pulse Oximetry 100 100 99 Oxygen Delivery Method Room Air 06/14/18 13:17 06/14/18 13:20 06/14/18 13:30 Temperature Temperature Source Sepsis Recent Fever Within 48 Hours Sepsis New/Unexplained Change in Mental Status Sepsis Action Taken by Nursing Pulse Rate 76 68 69 Pulse Rate [Apical] Pulse Rate from SpO2 Sensor 77 68 69 Pulse Rhythm Pulse Rhythm [Apical] Pulse Strength Respiratory Rate 25 H 17 21 Respiratory Effort / Characteristics Respiratory Depth Respiratory Pattern Blood Pressure 181/78 H Blood Pressure [Right Arm] Blood Pressure Mean 112 Blood Pressure Mean [Right Arm] Blood Pressure Position [Right Arm] Pulse Oximetry 99 100 99 Oxygen Delivery Method 06/14/18 13:33 06/14/18 13:40 06/14/18 13:46 Temperature Temperature Source Sepsis Recent Fever Within 48 Hours Sepsis New/Unexplained Change in Mental Status Sepsis Action Taken by Nursing Pulse Rate 66 81 66 Pulse Rate [Apical] Pulse Rate from SpO2 Sensor 66 65 66 Pulse Rhythm Pulse Rhythm [Apical] Pulse Strength Respiratory Rate 23 20 17 Respiratory Effort / Characteristics Respiratory Depth Respiratory Pattern Blood Pressure 186/95 H 155/88 H Blood Pressure [Right Arm] Blood Pressure Mean 125 110 Blood Pressure Mean [Right Arm] Blood Pressure Position [Right Arm] Pulse Oximetry 97 99 99 Oxygen Delivery Method 06/14/18 14:13 06/14/18 15:00 Temperature Temperature Source Sepsis Recent Fever Within 48 Hours Sepsis New/Unexplained Change in Mental Status Sepsis Action Taken by Nursing Pulse Rate 63 Pulse Rate [Apical] 64 Pulse Rate from SpO2 Sensor Pulse Rhythm Pulse Rhythm [Apical] Regular Pulse Strength Respiratory Rate 18 17 Respiratory Effort / Characteristics Respiratory Depth Normal Respiratory Pattern Blood Pressure 176/76 H Blood Pressure [Right Arm] 180/85 H Blood Pressure Mean Blood Pressure Mean [Right Arm] 116 Blood Pressure Position [Right Arm] Sitting Pulse Oximetry 99 96 Oxygen Delivery Method Room Air Room Air GENERAL: Patient is awake and alert. He is somewhat anxious appearing. He appears to be comfortable. EYES: The conjunctivae are clear. The pupils are round and reactive. EARS, NOSE, MOUTH AND THROAT: The nose is without any evidence of any deformity. Mucous membranes are moist tongue is midline NECK: The neck is nontender and supple. There was no bruit noted to auscultation. RESPIRATORY: Normal respiratory effort is noted there is no evidence of wheezing rhonchi or rales CARDIOVASCULAR: Regular rate and rhythm noted there no murmurs rubs or gallops normal S1 normal S2 GASTROINTESTINAL: The abdomen is soft. Bowel sounds are present in all quadrants. Abdomen is nontender BACK: No midline tenderness or or step-off noted range of motion in flexion extension as well as rotation no signs of muscle spasm noted MUSCULOSKELETAL/EXTREMITIES: There is no evidence of gross deformity full range of motion is noted in the hips and shoulders SKIN: There is no obvious evidence of any rash. There are no petechiae, pallor o r cyanosis noted. NEUROLOGIC: Patient is awake alert and oriented x3. Strength was symmetric. Patellar tendon reflexes were 1+ bilaterally. There is no facial droop noted. Patient does have intermittent episodes of word finding but he appears to be neurologically intact. Course 1250:The patient was evaluated in room A1. A complete history and physical examination was performed. 1255: I discussed the patient's case with Dr. Renee, [facility], who will evaluate the patient for a stroke alert via the telestroke. 1345: I reevaluated the patient's case with Dr. Renee, who recommended that the patient be kept for observation and blood work. Current findings indicate a TIA. 1348: I discussed the patient's case with Dr. Ponce, [facility], who will evaluate that patient for further management and care. 1355: Upon reevaluation, the patient is resting comfortably. I discussed laboratory and radiographic results with the patient. He verbalized agreement of the treatment plan. The patient will be evaluated for further management and care. Administered Medications Discontinued Medications Sodium Chloride (Nss 1000ml) 1,000 mls @ 50 mls/hr IV .Q20H EDISON Stop: 07/14/18 12:44 Last Admin: 06/14/18 14:12 Dose: 50 mls/hr Documented by: [id number] Ioversol (Optiray 320 125ml) 120 ml IV ONCE PRN PRN Reason: Interaction Checking Stop: 06/18/18 12:59 Last Admin: 06/14/18 13:01 Dose: 120 ml Documented by: [id number] Medical Decision Making Differential Diagnosis Differential diagnosis: Etiologies such as metabolic, infection, hypo/hyperglycemia, electrolyte abnorm alities, cardiac sources, intracerebral event, toxicologic, neurologic, as well as others were entertained. Medical Records Attestation: I reviewed the patient's medical records. Home Medications Current Medication List: was personally reviewed by me Laboratory Data Attestation: I reviewed the patient's lab results. Result diagrams: 06/14/18 13:02 06/14/18 13:02 Lab Results 06/14/18 06/14/18 06/14/18 Range/Units 13:02 13:02 13:02 WBC 5.95 (4.8-10.8) K/uL RBC 3.92 L (4.7-6.1) M/uL Hgb 12.1 L (14.0-18.0) g/dL Hct 35.2 L (42-52) % MCV 89.8 (80-100) fL MCH 30.9 (25-34) pg MCHC 34.4 (32-36) g/dL RDW Std Deviation 44.0 (36.4-46.3) fL RDW Coeff of Reyna 13.5 (11.5-14.5) % Plt Count 195 (130-400) K/uL MPV 8.5 (7.4-10.4) fL Immature Gran % (Auto) 0.2 % Neut % (Auto) 76.0 % Lymph % (Auto) 13.6 % Petroleum % (Auto) 8.6 % Eos % (Auto) 1.3 % Baso % (Auto) 0.3 % Immature Gran # (Auto) 0.01 (0.00-0.02) K/uL Neut # (Auto) 4.52 (1.4-6.5) K/uL Lymph # (Auto) 0.81 L (1.2-3.4) K/uL Petroleum # (Auto) 0.51 (0.11-0.59) K/uL Eos # (Auto) 0.08 (0-0.5) K/uL Baso # (Auto) 0.02 (0-0.2) K/uL PT 11.7 (9.0-12.0) Seconds INR 1.2 H (0.9-1.1) APTT 25.4 (21.0-31.0) Seconds PTT Ratio 0.9 Sodium 133 L (136-145) mmol/L Potassium 3.5 (3.5-5.1) mmol/L Chloride 99 (98-107) mmol/L Carbon Dioxide 26 (21-32) mmol/L Anion Gap 8.0 (3-11) BUN 17 (7-18) mg/dl Creatinine 1.27 (0.6-1.4) mg/dl Est Cr Clr Drug Dosing 43.1 ml/min Est GFR ( Amer) 59.3 Est GFR (Non-Af Amer) 51.2 BUN/Creatinine Ratio 13.4 (10-20) Glucose 249 H (70-99) mg/dl POC Glucose (70-99) Calcium 9.4 (8.5-10.1) mg/dl Magnesium 2.1 (1.8-2.4) mg/dl Total Bilirubin 0.6 (0.2-1) mg/dl AST 15 (15-37) U/L ALT 18 (12-78) U/L Alkaline Phosphatase 114 (45-117) U/L Troponin I < 0.015 (0-0.045) ng/ml Total Protein 7.2 (6.4-8.2) gm/dl Albumin 3.3 L (3.4-5.0) gm/dl Globulin 3.9 (2.5-4.0) gm/dl Albumin/Globulin Ratio 0.8 L (0.9-2) Ethyl Alcohol mg/dL (0-3) mg/dl Blood Type Antibody Screen 06/14/18 06/14/18 06/14/18 Range/Units 13:06 13:20 13:42 WBC (4.8-10.8) K/uL RBC (4.7-6.1) M/uL Hgb (14.0-18.0) g/dL Hct (42-52) % MCV (80-100) fL MCH (25-34) pg MCHC (32-36) g/dL RDW Std Deviation (36.4-46.3) fL RDW Coeff of Reyna (11.5-14.5) % Plt Count (130-400) K/uL MPV (7.4-10.4) fL Immature Gran % (Auto) % Neut % (Auto) % Lymph % (Auto) % Petroleum % (Auto) % Eos % (Auto) % Baso % (Auto) % Immature Gran # (Auto) (0.00-0.02) K/uL Neut # (Auto) (1.4-6.5) K/uL Lymph # (Auto) (1.2-3.4) K/uL Petroleum # (Auto) (0.11-0.59) K/uL Eos # (Auto) (0-0.5) K/uL Baso # (Auto) (0-0.2) K/uL PT (9.0-12.0) Seconds INR (0.9-1.1) APTT (21.0-31.0) Seconds PTT Ratio Sodium (136-145) mmol/L Potassium (3.5-5.1) mmol/L Chloride (98-107) mmol/L Carbon Dioxide (21-32) mmol/L Anion Gap (3-11) BUN (7-18) mg/dl Creatinine (0.6-1.4) mg/dl Est Cr Clr Drug Dosing ml/min Est GFR ( Amer) Est GFR (Non-Af Amer) BUN/Creatinine Ratio (10-20) Glucose (70-99) mg/dl POC Glucose 259 H (70-99) Calcium (8.5-10.1) mg/dl Magnesium (1.8-2.4) mg/dl Total Bilirubin (0.2-1) mg/dl AST (15-37) U/L ALT (12-78) U/L Alkaline Phosphatase (45-117) U/L Troponin I (0-0.045) ng/ml Total Protein (6.4-8.2) gm/dl Albumin (3.4-5.0) gm/dl Globulin (2.5-4.0) gm/dl Albumin/Globulin Ratio (0.9-2) Ethyl Alcohol mg/dL < 3.0 (0-3) mg/dl Blood Type O Positive Antibody Screen NEGATIVE Imaging Data Radiologist's Impression: Radiology results as stated below per my review and the radiologist's interpretation: CT angio head w con HISTORY: Mental status change stroke TECHNIQUE: Multiaxial CT angiography of the head was performed IV contrast: None. Maximum intensity projection images were also obtained. A dose lowering technique was utilized adhering to the principles of ALARA. COMPARISON: None. FINDINGS: There is no mass, hematoma, midline shift, or acute infarct. Visualized intracranial internal carotid arteries, distal vertebral arteries, and basilar artery are widely patent. There is no significant stenosis, occlusion, or aneurysm seen within the bilateral ACAs, MCAs, or roll up guider operator. Moderate plaque formation at the carotid siphons IMPRESSION: No significant stenosis, occlusion, or aneurysm within the [place] of [place]. Mild scattered plaque formation. No significant stenotic process. The above report was generated using voice recognition software. It may contain grammatical, syntax or spelling errors. Electronically signed by: Manjit Nino M.D. 06/14/2018 1:[address] angio neck with con HISTORY: Mental status change stroke TECHNIQUE: Multiaxial CT angiography of the neck was performed IV contrast: 100 cc All measurements were calculated based on NASCET criteria. Maximum intensity projection images were also obtained. A dose lowering technique was utilized adhering to the principles of ALARA. COMPARISON STUDY: None. FINDINGS: The aortic arch and proximal great vessels are widely patent. There is no significant stenosis, occlusion, or dissection identified within the bilateral common carotid, internal carotid, or vertebral arteries. Mild scatter ed plaque formation throughout the carotid systems. IMPRESSION: No significant stenosis, occlusion, or dissection identified within the carotid or vertebral arteries. Minimal/mild plaque formation The above report was generated using voice recognition software. It may contain grammatical, syntax or spelling errors. Electronically signed by: Manjit Nino M.D. 06/14/2018 1:[address] SCAN OF THE BRAIN WITHOUT IV CONTRAST CLINICAL HISTORY: Strokelike symptoms. COMPARISON STUDY: No priors. TECHNIQUE: Unenhanced axial CT scan of the brain is performed from the vertex to the skull base. A dose lowering technique was utilized adhering to the p rinciples of ALARA. CT DOSE: 638.56 mGycm FINDINGS: Brain parenchyma: There are age-related involutional changes noting mild to moderate subcortical and periventricular microangiopathic change. There is no hemorrhage, mass effect, or evidence of acute territorial ischemia by CT criteria. Lopes-white matter differentiation is preserved. No extra-axial fluid collection is seen. Ventricles, sulci, cisterns: Prominent secondary to involutional change. Intracranial vasculature: There is atherosclerotic calcification of the cavernous carotid and vertebral arteries. Calvarium: Unremarkable. Soft tissues: There is a small lipoma in the left frontal scalp. Sinuses and mastoids: The visualized paranasal sinuses are clear. The mastoid air cells are well pneumatized. Orbits: The bony orbits are grossly intact. IMPRESSION: There is no hemorrhage, mass effect, or evidence of acute territor ial ischemia by CT criteria. Electronically signed by: Mandeep Rivera M.D. 06/14/2018 12:53 PM XR chest 1V portable CLINICAL HISTORY: weaknes dyspnea COMPARISON STUDY: 02/15/2017 FINDINGS: The bones soft tissues and hemidiaphragms are normal. The cardi omediastinal silhouette is normal. The lungs are clear. The pulmonary vasculature is normal. IMPRESSION: Negative chest. The above report was generated using voice recognition software. It may contain grammatical, syntax or spelling errors. Electronically signed by: Manjit Nino M.D. 06/14/2018 2:38 PM ECG Data Attestation: I personally reviewed and interpreted this ECG as follows: Indication: altered mental status Rate (beats per minute): 68 Rhythm: sinus rhythm Findings: + 1st degree AV block and + ST depression (Lateral); no PVC Comparison ECG Date: from (02/18/17) Change: the following changes noted (sinus rhythm has replaced atrial fibrillation) Blood Pressure Blood Pressure Findings: Elevated blood pressure Blood Pressure Disposition: further management by hospitalist HELLEN Narrative The patient is an 87-year-old male who presented to the emergency department for a stroke evaluation. The patient was made a stroke alert prior to arrival. We received the prehospital notification about the patient who developed an acute onset of expressive aphasia while he was at a . The greenbelt describes the episode quite well and apparently the patient was having difficulty with wor d finding as well as some slurred speech. He had no other focal neurologic deficit. When he arrived in the emergency department he was taken directly to CAT scan. CAT scan did not show any acute disease on plain CT. CT angiography did not show any acute occlusion. The patient's condition continued to improve while he was in the emergency department. The patient was not a candidate for TPA given his quickly resolving symptoms as well as his current anticoagulant use. The patient's condition was discussed with the [facility] stroke neurologist. I also discussed his case with the on-call [facility] hospitalist. At this time the patient's condition appears to improve sign ificantly. It was recommended that the patient be brought into the hospital for further workup including MRI of the brain. Impression & Plan TIA (transient ischemic attack) Discharge Plan Visit Data *Final* Discharge Date/Time: 06/14/18 15:00 Chief Complaint: Stroke Alert Stated Complaint: stroke alert ED Provider: Terell Sinclair Discharge Problem: TIA (transient ischemic attack) Patient Disposition: Admitted As Inpatient Discharge Instructions Interventions: ED Discharge Assessment Last Done: 06/14/18 15:00 The scribe's documentation has been prepared under my direction and personally reviewed by me in its entirety. I confirm that the note above accurately reflects all work, treatment, procedures, and medical decision making performed by me.
--- NOTE | 2018-06-14 14:39 | XRay Report ---
XR chest 1V portable CLINICAL HISTORY: weaknes dyspnea COMPARISON STUDY: 02/15/2017 FINDINGS: The bones soft tissues and hemidiaphragms are normal. The cardiomediastinal silhouette is n ormal. The lungs are clear. The pulmonary vasculature is normal. IMPRESSION: Negative chest. The above report was generated using voice recognition software. It may contain grammatical, syntax or spelling errors. Electronically signed by: Manjit Nino M.D. 06/14/2018 2:38 PM
[2018-06-14] MEDS ORDERED: ONDANSETRON INJ 2 MG/ML 2 ML VIAL IV PRN (16:02)
[2018-06-14] MEDS ORDERED: PHARMACIST DISCHARGE MED REC CONSULT PRN (16:02)
[2018-06-14] MEDS ORDERED: ACETAMINOPHEN 325 MG TAB PO PRN (16:02)
--- NOTE | 2018-06-14 17:37 | History & Physical Report ---
Date of Service June 14, 2018 Assessment & Plan (1) TIA (transient ischemic attack): patient experienced acute onset of difficulty speaking at 1130 he was trying to speak but words did not make any sense he was also slightly confused and c/o dizziness no reported weakness, sensory deficits, loss in vision, facial droop CT head was negative for acute bleed CT angio head and neck with no changes no tPA because symptoms greatly improved and then nearly resolved in the ED admit to tele, check MRI brain, no need for MRA as CTA done on admission permissive hyptertension already with history of afib on anticoagulation, hold on echo as it would not change room attendant start on aspirin 81mg daily as he does not take antiplatelet start on Lipitor 20mg, Lipid panel in AM (2) Atrial fibrillation: continue on Toprol 25mg continue on Eliquis, no signs of intracranial bleeding (3) DM type 2 (diabetes mellitus, type 2): hold Metformin and Glipizide Novolog SS diabetic diet (4) Hypertension: will continue on Toprol hold Triamterene and Losartan for permissive HTN History of Present Illness Chief Complaint: I was speaking funny Primary Care Provider: Merlin Cisneros MD 87 yo male with history of afib and DM type II presented to the ED via EMS due to some difficulty speaking that started suddenly at 1130. He says that he and his were at a viewing around 11am. While there he experienced some mild le ft sided neck and shoulder pain but it went away. He then drove home and was preparing to eat lunch. He started to experience difficulty speaking. He says that he could not speak clearly no matter how hard he tried and he says that he knew his words sounded funny. His said that his speech could not be understood, that nothing sounded like clear words to her. He was acting slightly confused as well. He never had this happen before. He did not experience any focal weakness or sensory loss. He did not have any visual changes or facial droop. His family call the EMS and he was brought to the ED quickly. Stroke alert was called prior to arrival. By the time he arrived his speech was improving and then in the ED his speech improved dramatically. He did not have any focal neurological deficits. Vitals were stable except blood pressure was slightly high. Labs were normal. He was in afib on the monitor. CT head was negative for bleeding and CT angio of the head and neck was normal. Stroke provided said that tPA was not warranted and recommended further stroke work up with MRI. Called for admission. Allergies Allergy/AdvReac Type Severity Reaction Status Date / Time No Known Allergies Allergy Unverified 06/14/18 15:03 Home Medications Home Medications Medication Instructions Recorded Confirmed Type apixaban [Eliquis] 2.5 mg PO BID 06/14/18 06/14/18 History desloratadine [Clarinex] 5 mg PO DAILY PRN 06/14/18 06/14/18 History glimepiride 1 mg PO QAM 06/14/18 06/14/18 History ketoconazole 1 applic TOPICAL BID PRN 06/14/18 06/14/18 History losartan-hydrochlorothiazide 1 tab PO DAILY 06/14/18 06/14/18 History [Hyzaar] metformin [Glucophage] 500 mg PO BID 06/14/18 06/14/18 History metoprolol succinate [Toprol XL] 25 mg PO QAM 06/14/18 06/14/18 History triamcinolone acetonide 1 spray INTRANASAL BID PRN 06/14/18 06/14/18 History triamterene-hydrochlorothiazid 1 tab PO DAILY PRN 06/14/18 06/14/18 History Past Med/Surg History Medical History Diabetes (Chronic) Acute abdominal pain (Acute) Diverticulosis, small intestine (Chronic) New onset a-fib (Acute) Urinary retention (Acute) Family History Other Family history non-contributory Social History Preferred Language: Mozambican Communication Ability: Effective 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 Beliefs That Will Affect Care: None marital status: Current Living Situation: Spouse current occupational status: retired Other Information That Helps Us Care for You: No Feels Safe at Home: Yes Safety Concerns: Feels Safe At This Time Smoking Status: Former smoker Hx Alcohol Use: Yes Alcohol type: wine Hx Substance Use: No Review of Systems Review of Systems: All systems reviewed & are unremarkable except as noted in HPI & below Neurologic: + abnormal speech (unintelligible speech for about one hour) and + confusion; no unsteadiness, no falls, no localized weakness, no generalized weakness, no loss of sensation, no tingling, no paresthesia, no lack of coordination, no tremor(s), no abnormal movements, no dizziness, no syncope and no headache(s) Physical Exam Constitutional: WD/WN, vitals as above Eyes: PERRL, conjunctivae normal, anicteric sclerae ENMT: external ear and nose normal, oropharynx normal Neck: trachea midline, no thyromegaly Respiratory: normal respiratory effort, lungs clear to auscultation Cardiovascular: RRR, no murmur, no edema Gastrointestinal (Abdomen): normal bowel sounds, soft, nontender, no hepatosplenomegaly Musculoskeletal: no cyanosis or clubbing, extremities motor strength 5/5 Skin: no rashes, warm and dry Neurologic: patellar DTR's 2+ bilat, sensation intact and PERRL, EOMI, accommodation nl, no face palsy, no dysarthria (repeats words clearly, short term recall intact) Psychiatric: Orientation: alert, oriented to person, oriented to place and cooperative; + not oriented to time (knew it was May, could not remember the year) Results & Data Vital Signs (Past 12 Hours) Vital Signs Temp Pulse Pulse Resp BP BP Pulse Ox 06/14/18 15:00 63 17 176/76 H 96 06/14/18 14:13 64 18 180/85 H 99 06/14/18 13:46 66 17 155/88 H 99 06/14/18 13:40 81 20 99 06/14/18 13:33 66 23 186/95 H 97 06/14/18 13:30 69 21 99 06/14/18 13:20 68 17 100 06/14/18 13:17 76 25 H 181/78 H 99 06/14/18 13:10 79 20 99 06/14/18 13:01 78 21 100 06/14/18 12:50 36.8 C 68 20 100 Laboratory Results Laboratory Results - last 24 hr 06/14/18 06/14/18 06/14/18 13:02 13:02 13:02 WBC 5.95 RBC 3.92 L Hgb 12.1 L Hct 35.2 L MCV 89.8 MCH 30.9 MCHC 34.4 RDW Std Deviation 44.0 RDW Coeff of Reyna 13.5 Plt Count 195 MPV 8.5 Immature Gran % (Auto) 0.2 Neut % (Auto) 76.0 Lymph % (Auto) 13.6 Dougherty % (Auto) 8.6 Eos % (Auto) 1.3 Baso % (Auto) 0.3 Immature Gran # (Auto) 0.01 Neut # (Auto) 4.52 Lymph # (Auto) 0.81 L Dougherty # (Auto) 0.51 Eos # (Auto) 0.08 Baso # (Auto) 0.02 PT 11.7 INR 1.2 H APTT 25.4 PTT Ratio 0.9 Sodium 133 L Potassium 3.5 Chloride 99 Carbon Dioxide 26 Anion Gap 8.0 BUN 17 Creatinine 1.27 Est Cr Clr Drug Dosing 43.1 Est GFR ( Amer) 59.3 Est GFR (Non-Af Amer) 51.2 BUN/Creatinine Ratio 13.4 Glucose 249 H POC Glucose Calcium 9.4 Magnesium 2.1 Total Bilirubin 0.6 AST 15 ALT 18 Alkaline Phosphatase 114 Troponin I < 0.015 Total Protein 7.2 Albumin 3.3 L Globulin 3.9 Albumin/Globulin Ratio 0.8 L Ethyl Alcohol mg/dL Blood Type Antibody Screen 06/14/18 06/14/18 06/14/18 13:06 13:20 13:42 WBC RBC Hgb Hct MCV MCH MCHC RDW Std Deviation RDW Coeff of Reyna Plt Count MPV Immature Gran % (Auto) Neut % (Auto) Lymph % (Auto) Dougherty % (Auto) Eos % (Auto) Baso % (Auto) Immature Gran # (Auto) Neut # (Auto) Lymph # (Auto) Dougherty # (Auto) Eos # (Auto) Baso # (Auto) PT INR APTT PTT Ratio Sodium Potassium Chloride Carbon Dioxide Anion Gap BUN Creatinine Est Cr Clr Drug Dosing Est GFR ( Amer) Est GFR (Non-Af Amer) BUN/Creatinine Ratio Glucose POC Glucose 259 H Calcium Magnesium Total Bilirubin AST ALT Alkaline Phosphatase Troponin I Total Protein Albumin Globulin Albumin/Globulin Ratio Ethyl Alcohol mg/dL < 3.0 Blood Type O Positive Antibody Screen NEGATIVE Diagnostic Findings CT head: IMPRESSION: There is no hemorrhage, mass effect, or evidence of acute territorial ischemia by CT criteria. CT angio neck with con IMPRESSION: No significant stenosis, occlusion, or dissection identified within the carotid or vertebral arteries. Minimal/mild plaque formation CT angio head w con IMPRESSION: No significant stenosis, occlusion, or aneurysm within the [place] of [place]. Mild scattered plaque formation. No significant stenotic process
[2018-06-14] MEDS: INSULIN ASPART 100 UNITS/ML 3 ML PEN SC SCH ×2 (19:46→21:20)
[2018-06-14] MEDS ORDERED: GADOBUTROL 65ML VIAL IV PRN (20:57)
[2018-06-14] MEDS ORDERED: TAMSULOSIN HCL 0.4 MG CAP PO SCH (21:00)
--- NOTE | 2018-06-14 21:04 | Magnetic Resonance Report ---
MRI OF THE BRAIN WITHOUT AND WITH IV CONTRAST CLINICAL HISTORY: Stroke LIGHTHEADEDNESS, TRANSIENT EXPRESSIVE APHASIA COMPARISON STUDY: CT scan the head dated 06/14/2018 TECHNIQUE: MRI of the brain was performed from the vertex to the skull base utilizing various T1 and T2 weighted sequences. Following the IV administration of 7.5 mL of Gadavist contrast, additional enh anced images were obtained. FINDINGS: Sagittal T1, axial diffusion, proton density and T2 weighted axial, coronal FLAIR, and pre and post a xial T1-weighted images were acquired. These were supplemented with post gadolinium coronal T1 weight ed images. No intra or extra-axial mass lesions are visualized. Axial diffusion-weighted images reveal no evidence of acute or subacute infarction. There is mild particular dilatation, likely secondary to volume loss Proton density T2-weighted and FLAIR images reveal scattered foci of increased T2 signal within the w megan matter, likely on a small vessel basis. There are no abnormal flow voids. There is no evidence of pathologic enhancement. IMPRESSION: 1. No acute intracranial findings 2. No evidence of intracranial mass 3. No evidence of acute or subacute infarction. Electronically signed by: Roman Gonzalez M.D. 06/14/2018 9:03 PM
[2018-06-14] MEDS: APIXABAN 2.5 MG TAB PO SCH (21:19)
[2018-06-15 06:23] LABS: Estimated Average Glucose 140 mg/dl; Hemoglobin A1C 6.5 % (4.5-5.6)
[2018-06-15 06:55] LABS: Basophils # (auto) 0.02 K/uL (0-0.2); Basophils % (auto) 0.4 %; Eosinophils # (auto) 0.22 K/uL (0-0.5); Eosinophils % (auto) 3.9 %; Hematocrit (blood only) 34.5 % (42-52); Hemoglobin 11.9 g/dL (14.0-18.0); Immature Granulocytes # (auto) 0.01 K/uL (0.00-0.02); Immature Granulocytes % (auto) 0.2 %; Lymphocytes # (auto) 1.54 K/uL (1.2-3.4); Lymphocytes % (auto) 27.4 %; Mean Corpuscular Hgb Conc 34.5 g/dL (32-36); Mean Corpuscular Volume 90.1 fL (80-100); Mean Platelet Volume 9.1 fL (7.4-10.4); Monocytes # (auto) 0.73 K/uL (0.11-0.59); Neutrophils % (auto) 55.1 %; Platelet Count 207 K/uL (130-400); RDW Coefficient of Variation 13.6 % (11.5-14.5); RDW Standard Deviation 44.6 fL (36.4-46.3); Red Blood Count 3.83 M/uL (4.7-6.1); White Blood Count 5.62 K/uL (4.8-10.8)
[2018-06-15 07:28] LABS: BUN Creatinine Ratio 15.1 (10-20); Calcium 9.2 mg/dl (8.5-10.1); Creatinine Clr Calc Pharmacy 38.8 ml/min; Est GFR (African American) 57.7; Est GFR (Non-African American) 49.8
[2018-06-15] MEDS ORDERED: POTASSIUM CHLORIDE 20 MEQ TABCR PO STA (08:16)
[2018-06-15] MEDS ORDERED: METOPROLOL SUCC 25MG EXT REL TAB PO SCH (09:00)
[2018-06-15] MEDS: APIXABAN 2.5 MG TAB PO SCH (09:00)
[2018-06-15] MEDS ORDERED: VALSARTAN 80 MG TAB PO SCH (09:00)
[2018-06-15] MEDS ORDERED: hydroCHLOROthiazide 25 MG TAB PO SCH (09:00)
[2018-06-15] MEDS ORDERED: ATORVASTATIN 20 MG TAB PO SCH (09:00)
[2018-06-15] MEDS ORDERED: ASPIRIN 81 MG CHEW PO SCH (09:00)
--- NOTE | 2018-06-15 09:33 | Neurology Consultation ---
Date of Consultation June 15, 2018 Assessment & Plan (1) TIA (transient ischemic attack): This is a 87-year-old right-handed male who presents with a TIA like events. Differential diagnosis could includes hypertensive emergency due to missed medication. Most likely the etiology for TIA is due to either hypertensive emergency from this medication versus cardioembolic from A. fib and 2 doses of missed Eliquis. No residual neurological deficits. Stroke risk factors include paroxysmal A. fib on Eliquis, diabetes, and hypertension Recommendations: Follow-up echocardiogram results to rule out cardiac thrombus Discussed with the patient ways to help remember to take his medication a regular basis such as pillbox or alarm reminders. Avoid dehydration and hypotension Blood pressure recommendations while in hospital 175/95-150/80 For the first month after hospital discharge, blood pressure recommendations 150/90-130/80. After the first month, blood pressure recommendations 130/80-110/70 Follow-up PT/OT and speech recommendations for discharge planning Neurological recommendations for stroke risk factor modifications: Total cholesterol goal 100-200, and LDL goal less than 100 (at goal) Hemoglobin A1c goal less than 7 (at goal) Encourage regular cardiovascular exercise at least 30 minutes 3 times per week Hospital Follow-up in neurology clinic in 1 month after discharge. History of Present Illness Reason for Consultation: Consultation for stroke/TIA like symptoms Attending Physician: Orlando Ponce, History of Present Illness This is a 87-year-old right-handed male who presents for an acute episode of speech disturbance and possible altered mental status. He does admit that he forgot to take his medications the night before and likely in the morning of the event. Reports that he felt like his normal self that morning but around 11 AM an acute episode of not able to get his words out correctly. He was aware that his speech was incorrect. He would try to speak but the words would come out gibberish. He denied any other neurological symptoms. No numbness or weakness. No changes in vision. No abnormal headaches. He does take hypertensive medications and Eliquis for paroxysmal A. fib. He does admit to occasionally forgetting his medications and forgot to doses of his medication before this episode. He is never had any symptoms like this before. He feels like his normal self this morning. He denied any chest pain or shortness of breath. MRI of the brain report and images were reviewed by myself and unremarkable. There was no acute stroke CTA of the head and neck was unremarkable Total cholesterol 122, LDL 61, HDL 46, triglycerides 76, hemoglobin A1c 6.5 Past medical history significant for A. fib, diabetes, and hypertension Family history: Father with lung cancer Social history: Does drink alcohol on occasion. Normally independent his activities of daily living. Remote tobacco use. Allergies Allergy/AdvReac Type Severity Reaction Status Date / Time No Known Allergies Allergy Unverified 06/14/18 15:03 Home Medications Home Medications Medication Instructions Recorded Confirmed Type apixaban [Eliquis] 2.5 mg PO BID 06/14/18 06/14/18 History desloratadine [Clarinex] 5 mg PO DAILY PRN 06/14/18 06/14/18 History glimepiride 1 mg PO QAM 06/14/18 06/14/18 History ketoconazole 1 applic TOPICAL BID PRN 06/14/18 06/14/18 History losartan-hydrochlorothiazide 1 tab PO DAILY 06/14/18 06/14/18 History [Hyzaar] metformin [Glucophage] 500 mg PO BID 06/14/18 06/14/18 History metoprolol succinate [Toprol XL] 25 mg PO QAM 06/14/18 06/14/18 History triamcinolone acetonide 1 spray INTRANASAL BID PRN 06/14/18 06/14/18 History triamterene-hydrochlorothiazid 1 tab PO DAILY PRN 06/14/18 06/14/18 History Patient History Medical History Diabetes (Chronic) Acute abdominal pain (Acute) Diverticulosis, small intestine (Chronic) New onset a-fib (Acute) Urinary retention (Acute) Family History Other Family history non-contributory Social History Preferred Language: Croatian Communication Ability: Effective Corset Maker Required: No Beliefs That Will Affect Care: None marital status: Current Living Situation: Spouse current occupational status: retired Other Information That Helps Us Care for You: No Feels Safe at Home: Yes Safety Concerns: Feels Safe At This Time Smoking Status: Former smoker Hx Alcohol Use: Yes Alcohol type: wine Hx Substance Use: No Review of Systems Review of Systems: All systems reviewed & are unremarkable except as noted in HPI & below Physical Exam Physical Exam: Gen.: Patient is alert and oriented in no acute distress lying in bed Heart: Regular rate and rhythm Extremities: No gross deformities or rashes noted Neurological examination: Mental status: Patient is alert and oriented to person place and time. Able to give own history. Good fund of knowledge. Attention and concentration normal for the situation. Recent and remote memory intact Speech is fluent without any dysarthria or aphasia noted Cranial nerves: Funduscopic examination was difficult unremarkable. Pupils equally round and reactive to light. Extraocular muscles intact without nystagmus. No facial asymmetry noted. Facial sensation intact. Tongue midline. Good palatal elevation. Good shoulder shrug bilaterally. Hearing grossly intact voice. Strength: 5/5 both proximal and distal in all extremities .Tone is normal. Sensation: Grossly intact to light touch in all extremities Deep tendon reflexes: +2 in bilateral biceps and patellar. Toes are downgoing to plantar stimulation bilaterally Coordination: Patient has good finger to nose without dysmetria Station within the bed is normal. Results & Data Vital Signs (Past 12 Hours) Vital Signs Temp Pulse Resp BP BP Pulse Ox 06/15/18 07:04 36.7 C 64 18 117/53 L 96 06/15/18 03:34 37.0 C 66 18 156/77 H 98 06/14/18 23:45 37.1 C 81 17 137/87 97
[2018-06-15] MEDS: INSULIN ASPART 100 UNITS/ML 3 ML PEN SC SCH ×2 (10:26→13:15)
[2018-06-15] MEDS ORDERED: STROKE PATIENT DISCHARGE STA (13:48)
--- NOTE | 2018-06-15 15:04 | Discharge Summary ---
Date of Service June 15, 2018 Admission HPI Per Admitting Provider 87 yo male with history of afib and DM type II presented to the ED via EMS due to some difficulty speaking that started suddenly at 1130. He says that he and his were at a viewing around 11am. While there he experienced some mild left sided neck and shoulder pain but it went away. He then drove home and was preparing to eat lunch. He started to experience difficulty speaking. He says that he could not speak clearly no matter how hard he tried and he says that he knew his words sounded funny. His said that his speech could not be understood, that nothing sounded like clear words to her. He was acting slightly confused as well. He never had this happen before. He did not experience any focal weakness or sensory loss. He did not have any visual changes or facial droop. His family call the EMS and he was brought to the ED quickly. Stroke alert was called prior to arrival. By the time he arrived his speech was improving and then in the ED his speech improved dramatically. He did not have any focal neurological deficits. Vitals were stable except blood pressure was slightly high. Labs were normal. He was in afib on the monitor. CT head was negative for bleeding and CT angio of the head and neck was normal. Stroke provided said that tPA was not warranted and recommended further stroke work up with MRI. Called for admission. Admission Exam Per Admitting Provider Constitutional: WD/WN, vitals as above Eyes: PERRL, conjunctivae normal, anicteric sclerae ENMT: external ear and nose normal, oropharynx normal Neck: trachea midline, no thyromegaly Respiratory: normal respiratory effort, lungs clear to auscultation Cardiovascular: RRR, no murmur, no edema Gastrointestinal (Abdomen): normal bowel sounds, soft, nontender, no hepatosplenomegaly Musculoskeletal: no cyanosis or clubbing, extremities motor strength 5/5 Skin: no rashes, warm and dry Neurologic: patellar DTR's 2+ bilat, sensation intact and PERRL, EOMI, accommodation nl, no face palsy, no dysarthria (repeats words clearly, short term recall intact) Psychiatric: Orientation: alert, oriented to person, oriented to place and cooperative; + not oriented to time (knew it was May, could not remember the year) Principal Diagnosis TIA, dysarthria Discharge Exam Constitutional WD/WN, vitals as above Eyes PERRL, conjunctivae normal, anicteric sclerae ENMT external ear and nose normal, oropharynx normal Neck trachea midline, no thyromegaly Respiratory normal respiratory effort, lungs clear to auscultation Cardiovascular RRR, no murmur, no edema Gastrointestinal (Abdomen) normal bowel sounds, soft, nontender, no hepatosplenomegaly Musculoskeletal no cyanosis or clubbing, extremities motor strength 5/5 Skin no rashes, warm and dry Neurologic patellar DTR's 2+ bilat, sensation intact and PERRL, EOMI, accommodation nl, no face palsy, no dysarthria (repeats words clearly, short term recall intact) Psychiatric Orientation: alert, oriented to person, oriented to place, oriented to time and cooperative Lymphatic no cervical or axillary lymphadenopathy Discharge Data Allergies Allergy/AdvReac Type Severity Reaction Status Date / Time No Known Allergies Allergy Unverified 06/14/18 15:03 Consultations 06/14/18 16:02 Consult Case Management - Discharge Planning Routine Consult Neurology Routine Ordered Studies 06/14/18 12:37 CT angio head w con Stat CT angio neck with con Stat CT head/brain wo con Stat 06/14/18 16:02 MR brain wo/w con Routine Hospital Course (1) TIA (transient ischemic attack): patient experienced acute onset of difficulty speaking at 1130 on 06/14 he was trying to speak but words did not make any sense he was also slightly confused and c/o dizziness no reported weakness, sensory deficits, loss in vision, facial droop CT head was negative for acute bleed CT angio head and neck with no changes no tPA because symptoms greatly improved and then nearly resolved in the ED MRI brain was normal started on aspirin 81mg daily as he does not take antiplatelet started on Lipitor 20mg lipid pane showed that LDL at goal in the 60s HbA1c was noted to be at goal on oral medications d/c to home on aspirin, Eliquis, Lipitor and previous blood pressure medications some question as to whether he was compliant, family members are going to take responsibility of him taking medications follow up with PCP in one week, neurology clinic in one month (2) Atrial fibrillation: continue on Toprol 25mg continue on Eliquis, no signs of intracranial bleeding he missed a dose of Eliquis in the morning on 06/14 because he went to a viewing again, he can be forgetful with medications, family taking a more active role (3) DM type 2 (diabetes mellitus, type 2): hold Metformin and Glipizide Novolog SS diabetic diet Hb A1c is 6.5% which is at goal for secondary stroke prevention (4) Hypertension: will continue on Toprol hold Triamterene and Losartan for permissive HTN initially will resume all blood pressure medications on discharge Total Time Total Time Spent Total Time Spent (In Minutes): 40 minutes Total Time Includes: Examination of the Patient, Discharge Planning and Communication With Other Providers (Dr. Moran) Discharge Plan Discharge Items Patient Disposition: Home - Self-Care Reason For Visit: STROKE Discharge Diagnosis: TIA with dysarthria Hypertension Atrial fibrillation Condition: Good Discharge Goals: Improve disease control and Improve function Activity: Resume your previous activity Non-emergency contact: Primary Care Provider and Neurologist Call non-emergency contact if: you have any medication questions and your symptoms worsen Follow-up/Referrals: Merlin Cisneros MD [Primary Care Provider] - 06/20/18 11:30 am (Please, follow up at Dr. Cisneros's office with his associate, Dolores Hoover PA-C, on MondayJune 20 at 11:30 am. *If you need to change this appointment, call the office at [phone].) Diet: Carb Consistent or DM2 and Heart Healthy Addtl Provider Instructions: Medications: - ASPIRIN: take 81mg daily for secondary stroke prevention - ATORVASTATIN: take 20mg daily, most common side effect is muscle aches and pains, if you have these you can discuss with family doctor Pooja MACHUCA: be sure you are taking this two times EVERY DAY as being off this medication can lead to increased risk of stroke Dysarthria, likely TIA as we discussed the MRI brain showed no evidence of acute ischemic stroke CT angiogram of the head and neck showed no vascular anomalies, no carotid stenosis lipid panel shows that LDL is at goal and HbA1c shows that sugars are well controlled, at goal blood pressure was elevated in the 170's, this could be due to poor control or also the brains response to elevate pressure in setting of stroke new medications are Lipitor (atorvastatin) which will help stabilize plaques even though lipid levels are stable aspirin for secondary stroke prevention follow up with Dr. Cisneros on 06/20 follow up with neurology clinic in one month, call for appointment, [phone] Risk Factors for Stroke: You can reduce your chances of stroke by working with your medical provider to adopt a healthy lifestyle. Some specific ways to lower your chance of stroke are: * If you are a smoker, now is the time to stop smoking cigarettes * If you are diabetic, improve the control of your blood sugars * Avoid excessive amounts of alcohol * Control high blood pressure * Lose weight if you are overweight * Be sure to lead an active lifestyle * Eat a healthy diet low in salt, cholesterol and fat You should know about other risk factors for stroke that you are unable to control. These include: * Age 55 years or older * Male gender * Certain racial groups: , or / * Family History of Stroke, Mini stroke or Heart Attack * Sickle Cell Disease Follow Up: It is important for you to keep your follow up appointments with your medical provider. Who to Call and When: Medical Emergencies: Call 911 immediately if you experience any of the following warning signs and symptoms of Stroke: * Sudden numbness or weakness of the face, arm or leg, especially on one side of the body * Sudden confusion, trouble speaking or understanding * Sudden trouble seeing in one or both eyes * Sudden trouble walking, dizziness, loss of balance or coordination * Sudden severe headache with no cause Do not delay calling 911 if you experience any warning signs or symptoms of a stroke. Delay in seeking medical attention may affect what treatments can be given to you. . Prescriptions: New atorvastatin 20 mg Tablet 20 mg PO QAM 30 Days Qty: 30 RF: 1 aspirin 81 mg Tablet,Chewable 81 mg PO DAILY 30 Days Qty: 30 RF: 2 Continued metformin [Glucophage] 500 mg tablet 500 mg PO BID RF: 0 glimepiride 1 mg Tablet 1 mg PO QAM RF: 0 losartan-hydrochlorothiazide [Hyzaar] 100-25 mg tablet 1 tab PO DAILY RF: 0 desloratadine [Clarinex] 5 mg tablet 5 mg PO DAILY PRN (Reason: SEASONAL ALLERGIES) RF: 0 triamcinolone acetonide 55 mcg Aerosol,Tryon 1 spray INTRANASAL BID PRN (Reason: Congestion) RF: 0 triamterene-hydrochlorothiazid 37.5-25 mg Tablet 1 tab PO DAILY PRN (Reason: Fluid Retention) RF: 0 metoprolol succinate [Toprol XL] 25 mg tablet extended release 24 hr 25 mg PO QAM RF: 0 ketoconazole 2 % Cream 1 applic TOPICAL BID PRN (Reason: Itching) RF: 0 Eliquis 2.5 mg tablet 2.5 mg PO BID RF: 0 Stand-Alone Forms: [facility] Discharge Orders: Discharge Order (Routine); Ordered 06/15/18 Ordered By: Orlando Ponce Admission Data Admit Date/Time: 06/14/18 14:08 Attending Provider: Orlando Ponce Admit Provider: Orlando Ponce Primary Care Provider: Merlin Cisneros Other Providers: Rah Brito Service: Telemetry Other Interventions: Discharge Summary Assessment (RN) Last Done: 06/15/18 14:18
--- NOTE | 2018-06-15 16:30 | Pharmacy Report ---
Pharmacist Stroke Counseling - Date of Service June 15, 2018 - Scope: Pharmacy has been consulted to provide medication discharge counseling for this patient admitted with [ischemic stroke] [hemorrhagic stroke] [transient ischemic attack] as per the Pharmacist Discharge Counseling for Stroke Patients Protoc . - Medications on Discharge: Home Medications Medication Instructions Recorded Confirmed Eliquis 2.5 mg PO BID 06/14/18 06/14/18 desloratadine [Clarinex] 5 mg PO DAILY PRN 06/14/18 06/14/18 glimepiride 1 mg PO QAM 06/14/18 06/14/18 ketoconazole 1 applic TOPICAL BID PRN 06/14/18 06/14/18 losartan-hydrochlorothiazide 1 tab PO DAILY 06/14/18 06/14/18 [Hyzaar] metformin [Glucophage] 500 mg PO BID 06/14/18 06/14/18 metoprolol succinate [Toprol XL] 25 mg PO QAM 06/14/18 06/14/18 triamcinolone acetonide 1 spray INTRANASAL BID PRN 06/14/18 06/14/18 triamterene-hydrochlorothiazid 1 tab PO DAILY PRN 06/14/18 06/14/18 New Rx's Medication Instructions Recorded aspirin 81 mg PO DAILY 30 Days #30 tab 06/15/18 atorvastatin 20 mg PO QAM 30 Days #30 tab 06/15/18 - Action: The above medications, specifically ones for stroke treatment/prophylaxis, have been reviewed in detail with the patient and/or patient medical center representative(s) prior to discharge. This includes indication, common adverse reactions, drug interactions, and medication administration. Medication counseling has been employed using the teach-back method to ensure understanding. - Outcome: The patient and/or patient medical center representative(s) have demonstrated understanding of the medications. Please note, they are aware that the pharmacist will call them within 72 hours post-discharge to confirm that the appropriate medications are being taken and answer any further medication related questions the patient might have at that time. Contact information Individual to be contacted: patient Relationship to patient (if applicable): patient Phone number: [phone] Best time to call:anytime Additional comments: Patient very pleasant to talk with today. Accompanied with family who helped to participate in the interview. States he will use his pill box (noncompliance prior to this hospital stay). Aware that pharmacy will be calling him post discharge. No concerns/questions on interview Thank you for allowing pharmacy to be involved in the care of this patient. Please call [phone] or [phone] with any additional questions
--- NOTE | 2018-06-18 10:38 | Pharmacy Report ---
Pharmacist Post D/C Phone Note - Phone Note: Date of phone call: June 18, 2018. Individual with whom pharmacist spoke to: BRENNAN FARIAS The following questions were reviewed during the phone call with responses listed below each: Can you tell me the medications that you are currently taking as well as when and how you take each medication? -See Table Below When have you missed any doses of your medications? - none What side effects are you having from your medications, specifically, the new medications you were started on? - none What questions do you have about your medications? - none What problems are you having obtaining your medications? - lipitor was a $4 copay When is your next appointment with your primary care doctor? - 06/20 @1300 Additional comments: - Pt's daughter is a physician, she is managing her fathers medications from home. I spoke with Mr Farias and daughter this AM. All questions were answered. As per the Pharmacist Discharge Counseling for Stroke Patients Protocol, this phone call has been completed within 72 hours of discharge. Thank you for allowing us to be involved in the care of this patient. Thank you for allowing us to be involved in the care of this patient. - Home Medications: Home Medications Medication Instructions Recorded Confirmed Eliquis 2.5 mg PO BID 06/14/18 06/14/18 desloratadine [Clarinex] 5 mg PO DAILY PRN 06/14/18 06/14/18 glimepiride 1 mg PO QAM 06/14/18 06/14/18 ketoconazole 1 applic TOPICAL BID PRN 06/14/18 06/14/18 losartan-hydrochlorothiazide 1 tab PO DAILY 06/14/18 06/14/18 [Hyzaar] metformin [Glucophage] 500 mg PO BID 06/14/18 06/14/18 metoprolol succinate [Toprol XL] 25 mg PO QAM 06/14/18 06/14/18 triamcinolone acetonide 1 spray INTRANASAL BID PRN 06/14/18 06/14/18 triamterene-hydrochlorothiazid 1 tab PO DAILY PRN 06/14/18 06/14/18 New Rx's Medication Instructions Recorded aspirin 81 mg PO DAILY 30 Days #30 tab 06/15/18 atorvastatin 20 mg PO QAM 30 Days #30 tab 06/15/18
== END 2018-06-15 15:25 | disposition home or self-care (01) | DRG 69 ==
LOC: ED 12:41 → 2E 14:03

== ENCOUNTER 2021-07-21 16:41 | Observation (INO) ==
--- NOTE | 2021-07-21 16:58 | Emergency Department Note ---
Impression & Plan New onset of congestive heart failure, Atrial fibrillation, Hypokalemia, Fecal occult blood test positive ED Provider Note Provider: Rehan Ortiz MD DATE OF SERVICE: 07/21/2021 CHIEF COMPLAINT:Referred by , Positive blood stool, anemia, swelling HISTORY OF PRESENT ILLNESS: Patient is a 89 year old gentleman with a history of diabetes, paroxysmal atrial fibrillation on Eliquis, TIA/CVA, BPH, hypertension, and diverticulosis presenting here today referred by his primary doctor for fur ther evaluation of anemia found today with a positive stool Hemoccult test and increased leg swelling. Patient himself states that he feels maybe little bit weak and is a little leg swelling. Denies any abdominal pain or nausea. Denies chest pain. Denies shortness of breath. Does states he gets bit fatigued at times may be little bit winded with walking. Patient denies any falls. Patient denies any palpitations or lightheadedness to me. Denies again note from Dr. Remi Morrissey reports some chronic anemia with a positive fecal occult test and some dyspnea on exertion and leg swelling. Patient was evidently noted also to be bradycardic and have lower BP for them. Sent here for possible cardiac and GI evaluation. REVIEW OF SYSTEMS: A total of 10 review of systems was obtained and negative except as stated above in the HPI. 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 NECK: Trachea midline. Supple. ENT: Mucous membranes pink and moist. LUNGS: Airway patent. No retractions. Breath sounds clear with good air entry bilaterally. HEART: Irregular bradycardic rate and rhythm. No chest wall tenderness ABDOMEN: Soft and non-tender, without guarding or rebound. SKIN: Acyanotic, warm, dry, without rashes EXTREMITIES: Without tenderness with 2+ lower extremity edema. No significant calf tenderness. NEUROLOGICAL: No focal deficits. No aphasia. No facial droop or slurred speech. Normal strength and tone in the extremities. Sensation to gross touch normal. EK bpm atrial fibrillation. No acute ST segment elevation noted with a left axis and a QTC of 413. CONTINUOUS CARDIAC MONITORING: was ordered and showed a heart rate of 40s-60s bpm in irregular bradycardic atrial fibrillation Patient's laboratory studies and imaging reviewed. Differential includes Infection, dehydration, metabolic abnormality, h ypo/hyperglycemia, electrolyte disturbance, anemia, hypoxia, cardiac sources, intracerebral event, toxicologic, neurologic, as well as other pathologies. IMPRESSION/MEDICAL DECISION MAKING: Patient fairly bradycardic but hypertensive. Reported fecal occult blood test was positive and is on Eliquis. Basic lab work was obtained. Benign abdomen on exam. Some lower extremity edema questions possible CHF. Chest x-ray obtained but he is on room air. Anticoagulation lower suspicion for VTE. Paperwork available questions also if the patient is declining colonoscopy further work-up of positive fecal occult in the past. Anemia appears stable on blood work. Some hypokalemia and given some supplementation. Given oral dose of Protonix as I have low suspicion for upper GI bleed. No troponin elevation. Irregular bradycardic A. fib rate here not hypoxic. BNP significant elevated with the edema and chest x-ray findings questioning some left lower effusion question new onset CHF. Given a dose of some Lasix. Discussed with the patient and his [id number] at bedside findings. Patient thinks he may be amenable to colonoscopy at this point although my concern however is the new onset CHF which requires further work-up and evaluation. Wishes to stay for further evaluation and hospitalist was contacted. DIAGNOSIS: New onset CHF, atrial fibrillation, Hemoccult positive stool hypokalemia DISPOSITION: Hospitalist will evaluate Patient was agreeable with this plan. Past Med/Surg History Medical History (Updated 07/21/21 @ 20:08 by Geeta Simons PA-C) Acid reflux Atrial fibrillation on Eliquis BPH (benign prostatic hyperplasia) CKD (chronic kidney disease), stage III Diabetes mellitus, type 2 NIDDM Diverticular disease Hypertension Osteoarthritis Transient ischemic attack (TIA) 05/2018 - [facility] Surgical History History of arthroscopy of right knee History of cataract surgery right cataract. 11/14/2018. propofol used given patient's age and comorbid conditions History of colonoscopy History of inguinal hernia repair BL History of laparotomy exploratory History of tonsillectomy and adenoidectomy History of vasectomy Family History Father Lung cancer Alcoholism Mother Alcoholism Lung cancer Tremor Other Family history non-contributory Social History Smoking Status: Never smoker Second Hand Exposure: No; Hx Alcohol Use: Yes Alcohol type: wine Hx Substance Use: No Preferred Language: Pashto Communication Ability: Effective Stuffed Casing Tier Required: No Beliefs That Will Affect Care: None marital status: Current Living Situation: Spouse current occupational status: retired Feels Safe at Home: Yes Assistive Devices: Cane and Glasses Allergies Allergies Allergy/AdvReac Type Severity Reaction Status Date / Time pollen extracts Allergy Unknown ON MED LIST Verified 07/21/21 17:39 [id number] Reductase Allergy Unknown ON MED LIST Verified 07/21/21 17:39 Inhibitor Home Meds Home Medications Medication Instructions Recorded Confirmed ketoconazole 2 % topical cream 1 applic TOPICAL BID PRN 06/14/18 07/21/21 triamcinolone acetonide 55 mcg 1 spray INTRANASAL BID PRN 06/14/18 07/21/21 nasal spray aerosol multivitamin 1 tab PO DAILY 10/25/19 07/21/21 escitalopram oxalate 10 mg tablet 10 mg PO DAILY 12/28/20 07/21/21 (Lexapro) Arnicare Gel 1 applic TOPICAL BID PRN 07/21/21 07/21/21 Beer 1 can PO DAILY PRN 07/21/21 07/21/21 acetaminophen 500 mg tablet 1,000 mg PO Q6H PRN MDD 3 G 07/21/21 07/21/21 (Tylenol Extra Strength) apixaban 2.5 mg tablet (Eliquis) 2.5 mg PO BID17 07/21/21 07/21/21 desloratadine 5 mg tablet 5 mg PO HS 07/21/21 07/21/21 (Clarinex) loperamide 2 mg capsule 2 mg PO TID PRN 07/21/21 07/21/21 metoprolol succinate 25 mg 25 mg PO HS 07/21/21 07/21/21 tablet,extended release 24 hr (Toprol XL) povidone 1.25 % eye drops (Soothe 1 drp OPHTHALMIC (EYE) BID PRN 07/21/21 07/21/21 Hydration) turmeric root extract 500 mg 500 mg PO TID 07/21/21 07/21/21 capsule Previous Rx's Medication Instructions Recorded walker (Ultra-Light Rollator) #1 ea 05/20/19 blood sugar diagnostic (OneTouch #100 ea 09/19/19 Ultra Blue Test Strip) glimepiride 1 mg tablet 1 mg PO QAM #90 tab 10/26/20 Results & Data (ED) Vital Signs Vital Signs - 24 hr 07/21/21 16:43 07/21/21 16:50 07/21/21 16:54 Temperature 36.5 C Temperature Source Oral Pulse Rate 46 L 105 H Pulse Rate from SpO2 Sensor 62 Pulse Strength Normal Respiratory Rate 22 14 Respiratory Effort / Characteristics Non-Labored Respiratory Depth Normal Respiratory Pattern Regular Blood Pressure 193/79 H Blood Pressure Mean 117 Blood Pressure Position Sitting Pulse Oximetry 98 93 93 Oxygen Delivery Method Room Air Sepsis Recent Fever Within 48 Hours No Sepsis New/Unexplained Change in Mental Status No Sepsis Action Taken by Nursing No Action Required 07/21/21 17:00 07/21/21 18:00 07/21/21 18:30 Temperature Temperature Source Pulse Rate 53 L 60 48 L Pulse Rate from SpO2 Sensor 55 L 56 L Pulse Strength Respiratory Rate 18 19 14 Respiratory Effort / Characteristics Respiratory Depth Respiratory Pattern Blood Pressure Blood Pressure Mean Blood Pressure Position Pulse Oximetry 94 85 L 94 Oxygen Delivery Method Sepsis Recent Fever Within 48 Hours Sepsis New/Unexplained Change in Mental Status Sepsis Action Taken by Nursing 07/21/21 18:35 Temperature Temperature Source Pulse Rate 39 L Pulse Rate from SpO2 Sensor Pulse Strength Respiratory Rate 12 Respiratory Effort / Characteristics Respiratory Depth Respiratory Pattern Blood Pressure 179/114 H Blood Pressure Mean 135 Blood Pressure Position Pulse Oximetry 87 L Oxygen Delivery Method Sepsis Recent Fever Within 48 Hours Sepsis New/Unexplained Change in Mental Status Sepsis Action Taken by Nursing Laboratory Data Result diagrams: 07/21/21 16:43 07/21/21 16:43 Lab Results 07/21/21 07/21/21 07/21/21 Range/Units 16:43 16:43 16:43 WBC 5.61 (4.8-10.8) K/uL RBC 3.84 L (4.7-6.1) M/uL Hgb 11.5 L (14.0-18.0) g/dL POC Hgb (14.0-18.0) g/dl Hct 34.8 L (42-52) % POC Hct (42-52) % MCV 90.6 (80-100) fL MCH 29.9 (25-34) pg MCHC 33.0 (32-36) g/dL RDW Std Deviation 47.9 H (36.4-46.3) fL RDW Coeff of Reyna 14.5 (11.5-14.5) % Plt Count 173 (130-400) K/uL MPV 9.4 (7.4-10.4) fL Immature Gran % (Auto) 0.7 % Neut % (Auto) 59.7 % Lymph % (Auto) 23.9 % [place] % (Auto) 10.2 % Eos % (Auto) 5.0 % Baso % (Auto) 0.5 % Neut # (Auto) 3.35 (1.4-6.5) K/uL Lymph # (Auto) 1.34 (1.2-3.4) K/uL [place] # (Auto) 0.57 (0.11-0.59) K/uL Eos # (Auto) 0.28 (0-0.5) K/uL Baso # (Auto) 0.03 (0-0.2) K/uL Immature Gran # (Auto) 0.04 H (0.00-0.02) K/uL PT 13.2 H (9.0-12.0) Seconds INR 1.3 H (0.9-1.1) POC Sodium (135-144) mmol/L Sodium 135 L (136-145) mmol/L POC Potassium (3.3-5.0) mmol/L Potassium 3.0 L (3.5-5.1) mmol/L POC Chloride (101-112) mmol/L Chloride 100 (98-107) mmol/L Carbon Dioxide 27 (21-32) mmol/L POC Total CO2 (24-31) mmol/L Anion Gap 8 (3-11) POC Anion Gap (16-25) mmol/L POC BUN (7-18) mg/dl BUN 16 (6-23) mg/dl Creatinine 1.18 (0.6-1.4) mg/dl POC Creatinine (0.6-1.3) mg/dl Est Cr Clr Drug Dosing 44.1 ml/min Est GFR ( Amer) 63.5 ml/min Est GFR (Non-Af Amer) 54.8 ml/min BUN/Creatinine Ratio 13.6 (10-20) Glucose 145 H (70-99(Fasting)) mg/dl POC Glucose (other) (70-99) mg/dl Calcium 9.4 (8.5-10.1) mg/dl POC Ioniz Calcium [place] (1.12-1.32) mmol/l Magnesium 1.8 (1.7-2.4) mg/dl Total Bilirubin 0.9 (0.2-1.0) mg/dl AST 22 (13-39) U/L ALT 29 (7-52) U/L Alkaline Phosphatase 266 H (34-104) U/L Troponin I High Sens 14.5 (0-20) pg/ml B-Natriuretic Peptide (0-100) pg/ml Total Protein 7.5 (6.0-8.3) gm/dl Albumin 4.1 (3.4-5.0) gm/dl Globulin 3.4 (2.5-4.0) gm/dl Albumin/Globulin Ratio 1.2 (0.9-2) Lipase 20 (11-82) U/L TSH (0.300-4.500) uIu/ml Urine Color Urine Appearance (Clear) Urine pH (4.5-7.5) Ur Specific [place] (1.000-1.030) Urine Protein (Negative) Urine Glucose (UA) (Negative) Urine Ketones (Negative) Urine Blood (Negative) Urine Nitrite (Negative) Urine Bilirubin (Negative) Urine Urobilinogen (Negative) Ur Leukocyte Esterase (Negative) Urine WBC (Auto) (0-5) /hpf Urine RBC (Auto) (0-4) /hpf U Hyaline Cast (Auto) (0-5) /lpf U Epithel Cells (Auto) (0-5) /lpf Urine Bacteria (Auto) (Negative) SARS-CoV-2, RNA, NAAT (NEGATIVE) Blood Type Antibody Screen 07/21/21 07/21/21 07/21/21 Range/Units 16:43 16:43 16:43 WBC (4.8-10.8) K/uL RBC (4.7-6.1) M/uL Hgb (14.0-18.0) g/dL POC Hgb (14.0-18.0) g/dl Hct (42-52) % POC Hct (42-52) % MCV (80-100) fL MCH (25-34) pg MCHC (32-36) g/dL RDW Std Deviation (36.4-46.3) fL RDW Coeff of Reyna (11.5-14.5) % Plt Count (130-400) K/uL MPV (7.4-10.4) fL Immature Gran % (Auto) % Neut % (Auto) % Lymph % (Auto) % [place] % (Auto) % Eos % (Auto) % Baso % (Auto) % Neut # (Auto) (1.4-6.5) K/uL Lymph # (Auto) (1.2-3.4) K/uL [place] # (Auto) (0.11-0.59) K/uL Eos # (Auto) (0-0.5) K/uL Baso # (Auto) (0-0.2) K/uL Immature Gran # (Auto) (0.00-0.02) K/uL PT (9.0-12.0) Seconds INR (0.9-1.1) POC Sodium (135-144) mmol/L Sodium (136-145) mmol/L POC Potassium (3.3-5.0) mmol/L Potassium (3.5-5.1) mmol/L POC Chloride (101-112) mmol/L Chloride (98-107) mmol/L Carbon Dioxide (21-32) mmol/L POC Total CO2 (24-31) mmol/L Anion Gap (3-11) POC Anion Gap (16-25) mmol/L POC BUN (7-18) mg/dl BUN (6-23) mg/dl Creatinine (0.6-1.4) mg/dl POC Creatinine (0.6-1.3) mg/dl Est Cr Clr Drug Dosing ml/min Est GFR ( Amer) ml/min Est GFR (Non-Af Amer) ml/min BUN/Creatinine Ratio (10-20) Glucose (70-99(Fasting)) mg/dl POC Glucose (other) (70-99) mg/dl Calcium (8.5-10.1) mg/dl POC Ioniz Calcium [place] (1.12-1.32) mmol/l Magnesium (1.7-2.4) mg/dl Total Bilirubin (0.2-1.0) mg/dl AST (13-39) U/L ALT (7-52) U/L Alkaline Phosphatase (34-104) U/L Troponin I High Sens (0-20) pg/ml B-Natriuretic Peptide 1218 H (0-100) pg/ml Total Protein (6.0-8.3) gm/dl Albumin (3.4-5.0) gm/dl Globulin (2.5-4.0) gm/dl Albumin/Globulin Ratio (0.9-2) Lipase (11-82) U/L TSH 4.276 (0.300-4.500) uIu/ml Urine Color Urine Appearance (Clear) Urine pH (4.5-7.5) Ur Specific [place] (1.000-1.030) Urine Protein (Negative) Urine Glucose (UA) (Negative) Urine Ketones (Negative) Urine Blood (Negative) Urine Nitrite (Negative) Urine Bilirubin (Negative) Urine Urobilinogen (Negative) Ur Leukocyte Esterase (Negative) Urine WBC (Auto) (0-5) /hpf Urine RBC (Auto) (0-4) /hpf U Hyaline Cast (Auto) (0-5) /lpf U Epithel Cells (Auto) (0-5) /lpf Urine Bacteria (Auto) (Negative) SARS-CoV-2, RNA, NAAT NEGATIVE (NEGATIVE) Blood Type Antibody Screen 07/21/21 07/21/21 07/21/21 Range/Units 16:49 17:00 17:34 WBC (4.8-10.8) K/uL RBC (4.7-6.1) M/uL Hgb (14.0-18.0) g/dL POC Hgb 12.2 L (14.0-18.0) g/dl Hct (42-52) % POC Hct 36 L (42-52) % MCV (80-100) fL MCH (25-34) pg MCHC (32-36) g/dL RDW Std Deviation (36.4-46.3) fL RDW Coeff of Reyna (11.5-14.5) % Plt Count (130-400) K/uL MPV (7.4-10.4) fL Immature Gran % (Auto) % Neut % (Auto) % Lymph % (Auto) % [place] % (Auto) % Eos % (Auto) % Baso % (Auto) % Neut # (Auto) (1.4-6.5) K/uL Lymph # (Auto) (1.2-3.4) K/uL [place] # (Auto) (0.11-0.59) K/uL Eos # (Auto) (0-0.5) K/uL Baso # (Auto) (0-0.2) K/uL Immature Gran # (Auto) (0.00-0.02) K/uL PT (9.0-12.0) Seconds INR (0.9-1.1) POC Sodium 136 (135-144) mmol/L Sodium (136-145) mmol/L POC Potassium 3.0 L (3.3-5.0) mmol/L Potassium (3.5-5.1) mmol/L POC Chloride 98 L (101-112) mmol/L Chloride (98-107) mmol/L Carbon Dioxide (21-32) mmol/L POC Total CO2 25 (24-31) mmol/L Anion Gap (3-11) POC Anion Gap 17.0 (16-25) mmol/L POC BUN 15 (7-18) mg/dl BUN (6-23) mg/dl Creatinine (0.6-1.4) mg/dl POC Creatinine 1.2 (0.6-1.3) mg/dl Est Cr Clr Drug Dosing ml/min Est GFR ( Amer) ml/min Est GFR (Non-Af Amer) ml/min BUN/Creatinine Ratio (10-20) Glucose (70-99(Fasting)) mg/dl POC Glucose (other) 151 H (70-99) mg/dl Calcium (8.5-10.1) mg/dl POC Ioniz Calcium [place] 1.21 (1.12-1.32) mmol/l Magnesium (1.7-2.4) mg/dl Total Bilirubin (0.2-1.0) mg/dl AST (13-39) U/L ALT (7-52) U/L Alkaline Phosphatase (34-104) U/L Troponin I High Sens (0-20) pg/ml B-Natriuretic Peptide (0-100) pg/ml Total Protein (6.0-8.3) gm/dl Albumin (3.4-5.0) gm/dl Globulin (2.5-4.0) gm/dl Albumin/Globulin Ratio (0.9-2) Lipase (11-82) U/L TSH (0.300-4.500) uIu/ml Urine Color Yellow Urine Appearance Clear (Clear) Urine pH 7.0 (4.5-7.5) Ur Specific [place] 1.010 (1.000-1.030) Urine Protein 1+ H (Negative) Urine Glucose (UA) Negative (Negative) Urine Ketones Negative (Negative) Urine Blood Negative (Negative) Urine Nitrite Negative (Negative) Urine Bilirubin Negative (Negative) Urine Urobilinogen Negative (Negative) Ur Leukocyte Esterase Negative (Negative) Urine WBC (Auto) 1-5 (0-5) /hpf Urine RBC (Auto) 0-4 (0-4) /hpf U Hyaline Cast (Auto) 0 (0-5) /lpf U Epithel Cells (Auto) 0-5 (0-5) /lpf Urine Bacteria (Auto) Negative (Negative) SARS-CoV-2, RNA, NAAT (NEGATIVE) Blood Type O Positive Antibody Screen NEGATIVE Administered Medications Hydralazine HCl (Hydralazine 10 Mg Tab) 5 mg PO Q6H PRN PRN Reason: Hypertension Stop: 08/20/21 19:57 Last Admin: 07/21/21 20:27 Dose: 5 mg Documented by: [id number] Discontinued Medications Furosemide (Furosemide Inj 20 Mg/2 Ml Vial) 20 mg IV ONE ONE Stop: 07/21/21 17:54 Last Admin: 07/21/21 18:38 Dose: 20 mg Documented by: [id number] Potassium Chloride (K Bryan / Wtr) 10 meq in 100 mls @ 100 mls/hr IV ONE ONE; Protocol Stop: 07/21/21 18:52 Last Admin: 07/21/21 18:41 Dose: 100 mls/hr Documented by: [id number] Pantoprazole Sodium (Pantoprazole 40 Mg Tab) 40 mg PO NOW STA Stop: 07/21/21 17:58 Last Admin: 07/21/21 18:35 Dose: 40 mg Documented by: [id number] Potassium Chloride (Potassium Chloride Crtab 20 Meq Tabcr) 40 meq PO NOW STA Stop: 07/21/21 17:54 Last Admin: 07/21/21 18:35 Dose: 40 meq Documented by: [id number] Imaging Data Radiologist's Impression: Chest X-Ray 07/21/21 16:54 XR chest 1V portable CLINICAL HISTORY: weakness, leg swelling TECHNIQUE: Single frontal radiograph of the chest was obtained. Comparison: Comparison is made to chest radiograph 06/14/2018 FINDINGS: No lines and tubes are seen. Calcified aortic knob is seen. The lungs are clear. There is likely a small left pleural effusion. IMPRESSION: Small left pleural effusion. ACT 112: Negative or not required by law. Electronically signed by: Orlando Haddad M.D. 07/21/2021 5:33 PM Discharge Plan Visit Data Chief Complaint: Cardiac Assessment Stated Complaint: CHF ED Provider: Rehan Ortiz Discharge Problem: New onset of congestive heart failure, Atrial fibrillation, Hypokalemia, Fecal occult blood test positive Patient Disposition: Admitted As Inpatient Discharge Instructions Interventions: ED Discharge Assessment Last Done: 07/21/21 20:07 Discharge Problem: Atrial fibrillation Qualifiers: Atrial fibrillation type: unspecified Qualified Code(s): I48.91 - Unspecified atrial fibrillation
[2021-07-21 17:01] LABS: iSTAT Creatinine 1.2 mg/dl (0.6-1.3); iSTAT Hemoglobin 12.2 g/dl (14.0-18.0); iSTAT Ionized Calcium 1.21 mmol/l (1.12-1.32)
[2021-07-21 17:05] LABS: Basophils # (auto) 0.03 K/uL (0-0.2); Basophils % (auto) 0.5 %; Eosinophils # (auto) 0.28 K/uL (0-0.5); Hematocrit (blood only) 34.8 % (42-52); Hemoglobin 11.5 g/dL (14.0-18.0); Immature Granulocytes # (auto) 0.04 K/uL (0.00-0.02); Immature Granulocytes % (auto) 0.7 %; Lymphocytes # (auto) 1.34 K/uL (1.2-3.4); Lymphocytes % (auto) 23.9 %; Mean Corpuscular Hemoglobin 29.9 pg (25-34); Mean Corpuscular Volume 90.6 fL (80-100); Mean Platelet Volume 9.4 fL (7.4-10.4); Monocytes # (auto) 0.57 K/uL (0.11-0.59); Monocytes % (auto) 10.2 %; Neutrophils # (auto) 3.35 K/uL (1.4-6.5); Neutrophils % (auto) 59.7 %; Platelet Count 173 K/uL (130-400); RDW Coefficient of Variation 14.5 % (11.5-14.5); RDW Standard Deviation 47.9 fL (36.4-46.3); Red Blood Count 3.84 M/uL (4.7-6.1); White Blood Count 5.61 K/uL (4.8-10.8)
[2021-07-21 17:19] LABS: INR 1.3 (0.9-1.1); Prothrombin Time 13.2 Seconds (9.0-12.0)
--- NOTE | 2021-07-21 17:34 | XRay Report ---
XR chest 1V portable CLINICAL HISTORY: weakness, leg swelling TECHNIQUE: Single frontal radiograph of the chest was obtained. Comparison: Comparison is made to chest radiograph 06/14/2018 FINDINGS: No lines and tubes are seen. Calcified aortic knob is seen. The lungs are clear. There is likely a sm all left pleural effusion. IMPRESSION: Small left pleural effusion. ACT 112: Negative or not required by law. Electronically signed by: Orlando Haddad M.D. 07/21/2021 5:33 PM
[2021-07-21 17:35] LABS: Troponin I High Sensitivity 14.5 pg/ml (0-20)
[2021-07-21 17:44] LABS: Albumin Globulin Ratio 1.2 (0.9-2); Albumin Level 4.1 gm/dl (3.4-5.0); BUN Creatinine Ratio 13.6 (10-20); Bilirubin,Total 0.9 mg/dl (0.2-1.0); Calcium 9.4 mg/dl (8.5-10.1); Creatinine Clr Calc Pharmacy 44.1 ml/min; Est GFR (African American) 63.5 ml/min; Est GFR (Non-African American) 54.8 ml/min; Globulin 3.4 gm/dl (2.5-4.0); Magnesium 1.8 mg/dl (1.7-2.4); Total Protein 7.5 gm/dl (6.0-8.3)
[2021-07-21] MEDS ORDERED: POTASSIUM CHLORIDE CRTAB 20 MEQ TABCR PO STA (17:53)
[2021-07-21] MEDS ORDERED: FUROSEMIDE INJ 20 MG/2 ML VIAL IV ONE (17:53)
[2021-07-21] MEDS ORDERED: POTASSIUM CHLORIDE / WTR 10 MEQ/100 ML PLCT IV ONE (17:53)
[2021-07-21] MEDS ORDERED: PANTOprazole 40 MG TAB PO STA (17:57)
[2021-07-21 18:00] LABS: Appearance Urine Clear (Clear); Bacteria Urine Automated Negative (Negative); Bilirubin Urine Negative (Negative); Blood Urine Negative (Negative); Cast Urine Automated 0 /lpf (0-5); Color Urine Yellow; Epithelial Cell Urine Auto 0-5 /lpf (0-5); Glucose Urine UA Negative (Negative); Ketones Urine Negative (Negative); Leukocyte Esterase Urine Negative (Negative); Nitrite Urine Negative (Negative); Protein Urine 1+ (Negative); RBC Urine Automated 0-4 /hpf (0-4); Urobilinogen Urine Negative (Negative)
--- NOTE | 2021-07-21 18:27 | History & Physical Report ---
Date of Service July 21, 2021 Assessment & Plan (1) Fluid overload: Plan: Patient is 89-year-old male with PMH DM II, CKD III, atrial fibrillation on Eliquis, HTN, TIA, chronic anemia, osteoarthritis, ambulatory dysfunction presented to ER for BLE edema noted for the past several days, increased shortness of breath with walking. Denies chest pain. History Echo from 2019: EF: 55-60%, mild mitral stenosis, trace mitral regurgitation In ER BP 193/79, P: 46, 95% on room air. BNP 1218. High-sensitivity troponin not significantly elevated. EKG atrial fibrillation, rate 45, slight ST depression inferior leads, T wave inversion in septal leads CXR: Small left pleural effusion In ER given Lasix 20 mg IV Monitor I's and O's, daily weights, low-sodium diet Lasix 20 mg IV twice daily Echo Cardiology consult CBC, BMP in a.m. (2) Bradycardia: Plan: In ER initial pulse 46. Upon my exam patient pulse 50s to 60s Patient reports dizziness with standing several weeks ago. Denies any current dizziness DDx: Tachybradycardia syndrome Continue metoprolol succinate with holding parameters. May need to dc if develops pauses Pacer pads at bedside Cardiology consult (3) Hypokalemia: Plan: K: 3.0. Magnesium WNL In ER given 1K rider, KCl 40 M EQ p.o. Replace and monitor (4) Anemia: Plan: Patient with history anemia outpatient has been being followed. Outpatient hemoglobin 10 since 04/2021. Had reported + FOBT outpatient. Denies hematochezia or noted melena. Previously patient had denied outpatient colonoscopy however reports would be willing to have colonoscopy Today Hgb: 11.5 Monitor H&H GI consult (5) Hypertension: Plan: Patient noted to be hypertensive in ER Patient [facility] med list has losartan 100 mg daily and HCTZ 12.5 mg daily however [facility] rec does not have losartan or HCTZ Hydralazine p.o. as needed hypertension May need to further adjust BP meds (6) Atrial fibrillation: Plan: History of atrial fibrillation on chronic Eliquis Continue Eliquis Continue metoprolol succinate with holding parameters as above (7) CKD (chronic kidney disease), stage III: Plan: Cr: 1.18. Baseline 1.2-1.3 Monitor renal functions, avoid nephrotoxic agent when possible (8) Diabetes mellitus, type 2: Plan: A1c: 6.4 on 05/13/2021 Hold oral meds NovoLog sliding scale per protocol (9) Transient ischemic attack (TIA): Plan: Continue Eliquis (10) BPH (benign prostatic hyperplasia): Plan: Outpatient [facility] med list has finasteride however is not listed on the [facility] med rec DVT Prophylaxis On Eliquis DNR/DNI as per discussion with pt Follows with Dr Perez Morrissey for routine care Pt was seen and care coordinated with Dr Castillo. See addendum History of Present Illness Chief Complaint: Edema Primary Care Provider: [facility] Patient is 89-year-old male with PMH DM II, CKD III, atrial fibrillation on Eliquis, HTN, TIA, chronic anemia, osteoarthritis, ambulatory dysfunction presented to ER for BLE edema. Patient reports last several days has noticed increasing edema bilateral ankles and feet. Patient reports has been getting short of breath with walking. Reports gets fatigued easily with walking. Denies chest pain. Patient reports a couple weeks ago was having some dizziness with standing. He denies any current dizziness. He uses walker to assist in ambulation. Patient seen by PCP today and noted to have edema lower extremities and referred to ER. Patient has been having ongoing anemia had positive Hemoccult test outpatient. Patient denies any perez red blood per rectum, hematuria. He reports this stool appears dark brown in coloration. Previously patient had denied colonoscopy. His hemoglobin has been 10-10.2 since 04/2021. He reports he would be willing to have a colonoscopy now. Patient [facility] outpatient notes and med rec reviewed. He was previously on losartan 100mg daily and HCTZ 12.5mg daily. The med rec from the [facility] does not have losartan or HCTZ listed as being administered. Denies fever/chills, diaphoresis, N/V/D/C, POLLARD, syncope, vision changes, neck pain, CP, palpitations, cough, sore throat, choking, otalgia, rhinorrhea, abdominal pain, paresthesias, increased weakness, extremity erythema, extremity pain, rashes, urinary symptoms. Allergies Allergy/AdvReac Type Severity Reaction Status Date / Time pollen extracts Allergy Unknown ON MED LIST Verified 07/21/21 17:39 [id number]-[id number] Reductase Allergy Unknown ON MED LIST Verified 07/21/21 17:39 Inhibitor Home Medications Medication Instructions Recorded Confirmed Type ketoconazole 2 % topical cream 1 applic TOPICAL BID PRN 06/14/18 07/21/21 History triamcinolone acetonide 55 mcg 1 spray INTRANASAL BID PRN 06/14/18 07/21/21 History nasal spray aerosol walker (Ultra-Light Rollator) #1 ea 05/20/19 07/21/21 Rx blood sugar diagnostic (OneTouch #100 ea 09/19/19 07/21/21 Rx Ultra Blue Test Strip) multivitamin 1 tab PO DAILY 10/25/19 07/21/21 History glimepiride 1 mg tablet 1 mg PO QAM #90 tab 10/26/20 07/21/21 Rx escitalopram oxalate 10 mg tablet 10 mg PO DAILY 12/28/20 07/21/21 History (Lexapro) Arnicare Gel 1 applic TOPICAL BID PRN 07/21/21 07/21/21 History Beer 1 can PO DAILY PRN 07/21/21 07/21/21 History acetaminophen 500 mg tablet 1,000 mg PO Q6H PRN MDD 3 G 07/21/21 07/21/21 History (Tylenol Extra Strength) apixaban 2.5 mg tablet (Eliquis) 2.5 mg PO BID17 07/21/21 07/21/21 History desloratadine 5 mg tablet 5 mg PO HS 07/21/21 07/21/21 History (Clarinex) loperamide 2 mg capsule 2 mg PO TID PRN 07/21/21 07/21/21 History metoprolol succinate 25 mg 25 mg PO HS 07/21/21 07/21/21 History tablet,extended release 24 hr (Toprol XL) povidone 1.25 % eye drops (Soothe 1 drp OPHTHALMIC (EYE) BID PRN 07/21/21 07/21/21 History Hydration) turmeric root extract 500 mg 500 mg PO TID 07/21/21 07/21/21 History capsule Past Med/Surg History Medical History (Updated 07/21/21 @ 20:08 by Geeta Simons PA-C) Acid reflux Atrial fibrillation on Eliquis BPH (benign prostatic hyperplasia) CKD (chronic kidney disease), stage III Diabetes mellitus, type 2 NIDDM Diverticular disease Hypertension Osteoarthritis Transient ischemic attack (TIA) 05/2018 - [facility] Surgical History History of arthroscopy of right knee History of cataract surgery right cataract. 11/14/2018. propofol used given patient's age and comorbid conditions History of colonoscopy History of inguinal hernia repair BL History of laparotomy exploratory History of tonsillectomy and adenoidectomy History of vasectomy Family History Father Lung cancer Alcoholism Mother Alcoholism Lung cancer Tremor Other Family history non-contributory Social History Smoking Status: Never smoker Second Hand Exposure: No; Hx Alcohol Use: Yes Alcohol type: wine Hx Substance Use: No Preferred Language: Indonesian Communication Ability: Effective Degree Clerk Required: No Beliefs That Will Affect Care: None marital status: Current Living Situation: Spouse current occupational status: retired Feels Safe at Home: Yes Assistive Devices: Cane and Glasses Review of Systems Review of Systems: All systems reviewed & are unremarkable except as noted in HPI & below Physical Exam Physical Exam: General: no acute distress, WDWN elderly male Head: normocephalic, atraumatic Eyes: conjunctiva non-injected, anicteric ENT: hard of hearing, normal inspection external ears, nose, mucous membranes moist Neck: supple, trachea midline Lungs: no respiratory distress, diminished breath sounds left base, otherwise no wheezing/rhonchi/rales CV: irregularly irregular, rate 50's-60's,+ murmur, 2+ pretibial edema Abd: normal BS, soft, +ventral hernia, non-tender Ext: no cyanosis, no calf tenderness Neuro: A&O x 3, no focal deficits noted, normal affect Skin: warm, dry Results & Data Results & Data ([facility]) Vital Signs (Past 12 Hours) Vital Signs Temp Pulse Resp BP Pulse Ox 07/21/21 16:54 93 07/21/21 16:43 36.5 C 46 L 22 193/79 H 98 Laboratory Results Short CBC 07/21/21 Range/Units 16:43 WBC 5.61 (4.8-10.8) K/uL Hgb 11.5 L (14.0-18.0) g/dL Hct 34.8 L (42-52) % Plt Count 173 (130-400) K/uL BMP 07/21/21 16:43 Sodium 135 L Potassium 3.0 L Chloride 100 Carbon Dioxide 27 BUN 16 Creatinine 1.18 Glucose 145 H Calcium 9.4 Liver Function 07/21/21 Range/Units 16:43 Total Bilirubin 0.9 (0.2-1.0) mg/dl AST 22 (13-39) U/L ALT 29 (7-52) U/L Alkaline Phosphatase 266 H (34-104) U/L Albumin 4.1 (3.4-5.0) gm/dl Urine 07/21/21 Range/Units 17:34 Urine Color Yellow Urine Appearance Clear (Clear) Urine pH 7.0 (4.5-7.5) Ur Specific [place] 1.010 (1.000-1.030) Urine Protein 1+ H (Negative) Urine Glucose (UA) Negative (Negative) Diagnostic Findings Chest X-Ray 07/21/21 16:54 XR chest 1V portable CLINICAL HISTORY: weakness, leg swelling TECHNIQUE: Single frontal radiograph of the chest was obtained. Comparison: Comparison is made to chest radiograph 06/14/2018 FINDINGS: No lines and tubes are seen. Calcified aortic knob is seen. The lungs are clear. There is likely a small left pleural effusion. IMPRESSION: Small left pleural effusion. ACT 112: Negative or not required by law. Electronically signed by: Orlando Haddad M.D. 07/21/2021 5:33 PM Supervising Physician Co-Signing Physician Notes Patient is an 89-year-old male with history of CKD, atrial fibrillation, diverticulosis, chronic anemia and other medical problems presents with history of bilateral lower extremity edema, dyspnea on exertion which has been gradually worsening. Patient also have generalized weakness and easily tires with minimal exertion. He denies any chest pain, dizziness, nausea, abdominal pain, melena, diarrhea. Fecal occult test was positive while in ED. Patient refused to have colonoscopy in the past as per records. Please review HPI for complete details of presentation. Blood pressure elevated while in ED. He denies any headache, change in vision. Blood work suggestive of hemoglobin 11.5, hematocrit 34.8, platelets 173K, INR 1.3, sodium 135, potassium 3.0, chloride 100, glucose 145, magnesium 1.8, alkaline phosphatase 266, BNP 1218, TSH normal. Chest x-ray showed small left pleural effusion. EKG pending. On exam patient is moderately built and nourished, no apparent distress, normocephalic atraumatic, minimal hearing impairment, EOMI, decreased breath sounds on left base, irregularly irregular, 2+ bilateral lower extremity edema,+ murmur, abdomen soft, nontender,+ abdominal hernia, alert, awake, oriented, grossly no focal deficits. Patient is admitted for management of hypertensive urgency, volume overload likely acute diastolic heart failure and possible tachybradycardia syndrome. Agree with starting on IV Lasix, monitor I's and O's, daily weight, check resting echo, cardiology consulted. Will need further work-up for possible tachybradycardia syndrome. Replace electrolytes as needed. Will add hydralazine p.o. as needed for high blood pressure management. Will consider addition of other antihypertensives if needed. Hemoglobin at baseline. Fecal occult likely secondary to diverticulosis in setting of chronic anticoagulation use. Will consider discontinuing Eliquis if develops any perez bleeding. GI consulted. Monitor CBC. I personally reviewed the record. Patient is interviewed and examined at bedside. Patient's care is coordinated with Geeta Simons PA-C. Please refer to the documentation above for details of patient's presentation and for discussion of other issues. (1) Atrial fibrillation Atrial fibrillation type: unspecified Qualified Code(s): I48.91 - Unspecified atrial fibrillation
[2021-07-21] MEDS ORDERED: hydrALAZINE 10 MG TAB PO PRN (19:58)
[2021-07-21] MEDS ORDERED: POTASSIUM CHLORIDE CRTAB 20 MEQ TABCR PO ONE ×2 (21:00→23:00)
[2021-07-21] MEDS ORDERED: ACETAMINOPHEN 325 MG TAB PO PRN (21:20)
[2021-07-21] MEDS ORDERED: POLYETHYLENE (MIRALAX) 17 GM PACK PO PRN (21:20)
[2021-07-21] MEDS ORDERED: CARBOHYDRATES FOR HYPOGLYCEMIA PO PRN (21:20)
[2021-07-21] MEDS ORDERED: GLUCAGON FOR INJ 1 MG VIAL SQ PRN (21:20)
[2021-07-21] MEDS ORDERED: METOPROLOL SUCC 25MG EXT REL TAB PO SCH (21:20)
[2021-07-21] MEDS ORDERED: GLUCOSE 10 TABS/TUBE PO PRN (21:20)
[2021-07-21] MEDS ORDERED: GLUCOSE 40% GEL 15 GM TUBE PO PRN (21:20)
[2021-07-21] MEDS ORDERED: DEXTROSE 50% 50 ML SYRINGE IV PRN (21:20)
[2021-07-21] MEDS ORDERED: TRIAMCINOLONE ACET NASAL SPRAY 10.8ML BTL NAE PRN (21:20)
[2021-07-21] MEDS ORDERED: ARTIFICIAL TEARS OP PRN (21:41)
[2021-07-21] MEDS: INSULIN ASPART PER UNIT SC SCH (22:15)
[2021-07-22 07:28] LABS: Hematocrit (blood only) 31.6 % (42-52); Hemoglobin 10.8 g/dL (14.0-18.0); Mean Corpuscular Hgb Conc 34.2 g/dL (32-36); Mean Corpuscular Volume 90.8 fL (80-100); Mean Platelet Volume 9.1 fL (7.4-10.4); Platelet Count 151 K/uL (130-400); RDW Coefficient of Variation 14.2 % (11.5-14.5); RDW Standard Deviation 46.5 fL (36.4-46.3); Red Blood Count 3.48 M/uL (4.7-6.1)
[2021-07-22] MEDS: APIXABAN 2.5 MG TAB PO SCH ×2 (07:28→17:15)
[2021-07-22] MEDS: ESCITALOPRAM OXALATE 10 MG TAB PO SCH (07:29)
[2021-07-22] MEDS: MULTIVITAMIN TAB PO SCH (07:29)
[2021-07-22 07:40] LABS: Calcium 9.3 mg/dl (8.5-10.1); Creatinine Clr Calc Pharmacy 44.2 ml/min; Est GFR (African American) 70.6 ml/min; Magnesium 1.7 mg/dl (1.7-2.4); Potassium 3.5 mmol/L (3.5-5.1)
[2021-07-22 07:44] LABS: Troponin I High Sensitivity 17.3 pg/ml (0-20)
[2021-07-22] MEDS: INSULIN ASPART PER UNIT SC SCH ×4 (07:57→20:38)
--- NOTE | 2021-07-22 08:40 | Cardiology Consultation ---
Date of Consultation July 22, 2021 Assessment & Plan (1) New onset of congestive heart failure: (2) Atrial fibrillation: (3) Bradycardia: (4) HTN, goal below 140/90: (5) Anemia: Case discussed with Dr. Lucas. Patient remains bradycardic but asymptomatic. Lyme titer IgG positive. Awaiting other pending serologies - for now hold Metoprolol. Labile HTN- has been low at PCP office but now averaging in the 170-190s systolic. Lisinopril 10 mg daily started this am, will likely need to increase prior to discharge. Patient hypervolemic on exam- give extra 20 mg IV Lasix this am and increase Lasix to IV 40 mg BID. This should also improve BPs Trend BMP and replete electrolytes as necessary. Potassium goal of 4.0 and Mag goal of 2.0 Patient may benefit from addition of Aldactone. Further recommendations pending echo results. Will defer to primary team regarding anemia- recommend hgb goal >10 Supervising Physician Co-Signing Physician Notes I have seen and examined the patient. I reviewed the medical record. Currently the patient is significantly confused and requiring a sitter. Otherwise I agree with the plan as outlined. History of Present Illness Reason for Consultation: CHF/bradycardia Requesting Physician: [facility] hospitalist Attending Physician: Eliu Wliliam MD History of Present Illness 89-year-old male. Does not regularly follow with outpatient [facility] cardiology. Lives at the [place]. Follows with Dr. Morrissey outpatient. Seen by PCP yesterday. Noted concern regarding worsening dyspnea on exertion, leg swelling, bradycardia and hypotension. Patient was also found to have worsening anemia with positive guaiac stools. In the emergency department blood pressure was 193/79 with a pulse of 46. BNP was elevated, 1218. High- sensitivity troponin 14.5>>14.5>>17.3. Chest x-ray showed a small left pleural effusion and patient was started on IV Lasix 20 mg twice daily. Electrolytes replaced, calcium initially low at 3.0 (today 3.5) Echo pending. Heart rates initially in the 40s but improved to the 50s and 60s-patient is currently on metoprolol Patient has known history of anemia. Hemoglobin on admission was 11.5>> today 10.8- GI is consulted. In regards to his hypertension [facility] stated patient was on losartan 100 mg daily and hydrochlorothiazide 12.5 mg daily however the [facility] rec did not have him on either. Upon entrance into the room patient was resting comfortably in bed reading a magazine. Denies any acute concerns. Denies any chest pain. ongoing dyspnea with ambulation. Mild orthopnea, notes HOB to be slightly elevated to assist with breathing (~30 degrees). Lower extremity edema x2 weeks now. No palpitations, dizziness, syncope. No fever, chills, cough, hematochezia, melena, or hemoptysis Tele: Afib 40-50 (as low as mid 30s over night) I&O: -930 mL Weight: 81.1 kg >> 72.5 kg (07/22) Past medical history: Paroxysmal atrial fibrillation, on Eliquis Type 2 diabetes Hypertension BPH CKD stage III History of anemia. History of TIA Allergies Allergy/AdvReac Type Severity Reaction Status Date / Time pollen extracts Allergy Unknown ON MED LIST Verified 07/21/21 17:39 [id number] Reductase Allergy Unknown ON MED LIST Verified 07/21/21 17:39 Inhibitor Home Medications Medication Instructions Recorded Confirmed Type ketoconazole 2 % topical cream 1 applic TOPICAL BID PRN 06/14/18 07/21/21 History triamcinolone acetonide 55 mcg 1 spray INTRANASAL BID PRN 06/14/18 07/21/21 History nasal spray aerosol walker (Ultra-Light Rollator) #1 ea 05/20/19 07/21/21 Rx blood sugar diagnostic (OneTouch #100 ea 09/19/19 07/21/21 Rx Ultra Blue Test Strip) multivitamin 1 tab PO DAILY 10/25/19 07/21/21 History glimepiride 1 mg tablet 1 mg PO QAM #90 tab 10/26/20 07/21/21 Rx escitalopram oxalate 10 mg tablet 10 mg PO DAILY 12/28/20 07/21/21 History (Lexapro) Arnicare Gel 1 applic TOPICAL BID PRN 07/21/21 07/21/21 History Beer 1 can PO DAILY PRN 07/21/21 07/21/21 History acetaminophen 500 mg tablet 1,000 mg PO Q6H PRN MDD 3 G 07/21/21 07/21/21 History (Tylenol Extra Strength) apixaban 2.5 mg tablet (Eliquis) 2.5 mg PO BID17 07/21/21 07/21/21 History desloratadine 5 mg tablet 5 mg PO HS 07/21/21 07/21/21 History (Clarinex) loperamide 2 mg capsule 2 mg PO TID PRN 07/21/21 07/21/21 History metoprolol succinate 25 mg 25 mg PO HS 07/21/21 07/21/21 History tablet,extended release 24 hr (Toprol XL) povidone 1.25 % eye drops (Soothe 1 drp OPHTHALMIC (EYE) BID PRN 07/21/21 07/21/21 History Hydration) turmeric root extract 500 mg 500 mg PO TID 07/21/21 07/21/21 History capsule Patient History Medical History Acid reflux Atrial fibrillation on Eliquis BPH (benign prostatic hyperplasia) CKD (chronic kidney disease), stage III Diabetes mellitus, type 2 NIDDM Diverticular disease Hypertension Osteoarthritis Transient ischemic attack (TIA) 05/2018 - [facility] Surgical History History of arthroscopy of right knee History of cataract surgery right cataract. 11/14/2018. propofol used given patient's age and comorbid conditions History of colonoscopy History of inguinal hernia repair BL History of laparotomy exploratory History of tonsillectomy and adenoidectomy History of vasectomy Family History Father Lung cancer Alcoholism Mother Alcoholism Lung cancer Tremor Other Family history non-contributory Social History Smoking Status: Never smoker Second Hand Exposure: No; Hx Alcohol Use: Yes Alcohol type: beer and wine Hx Substance Use: No Preferred Language: German Communication Ability: Effective Geotechnicial Properties Technician Required: No Beliefs That Will Affect Care: None marital status: Current Living Situation: Alone current occupational status: retired Other Information That Helps Us Care for You: No Feels Safe at Home: Yes Safety Concerns: Feels Safe At This Time Assistive Devices: Cane, Glasses and Hearing Aid - Bilateral Review of Systems Review of Systems: All systems reviewed & are unremarkable except as noted in HPI & below Physical Exam Physical Exam: General: No acute distress. A+Ox3. HEENT: Normocephalic. Atraumatic. Conjunctiva and sclera clear. NECK: No carotid bruits. No JVD. Carotid upstrokes are brisk. Heart: RRR. S1 and S2 noted. + systolic murmur Lungs: Fine crackles in BL lung bases Abdomen: Normal bowel sounds. Soft. Taut. Nontender. Extremities: +3 pedal edema, +2 BLLE pitting edema. No clubbing or cyanosis. Pulses: radial=2/4, posterior tibial=2/4, dorsalis pedis = 2/4. NEURO: No focal deficits. PSYCH: Normal. Results & Data ([facility]) Vital Signs (Past 12 Hours) Vital Signs Temp Pulse Pulse Pulse Resp BP Pulse Ox 07/22/21 07:23 36.6 C 43 L 12 182/83 H 07/22/21 03:18 36.6 C 43 L 18 166/90 H 96 07/21/21 23:58 36.8 C 45 L 22 177/76 H 96 07/21/21 23:18 58 L 07/21/21 21:20 37 C 39 L 70 20 194/93 H 95 Laboratory Results Cardiac Enzymes 07/21/21 07/21/21 07/21/21 Range/Units 16:43 16:43 22:41 AST 22 (13-39) U/L Troponin I High Sens 14.5 14.5 (0-20) pg/ml B-Natriuretic Peptide 1218 H (0-100) pg/ml 07/22/21 Range/Units 07:05 AST (13-39) U/L Troponin I High Sens 17.3 (0-20) pg/ml B-Natriuretic Peptide (0-100) pg/ml Coagulation 07/21/21 07/21/21 Range/Units 16:43 16:43 PT 13.2 H (9.0-12.0) Seconds B-Natriuretic Peptide 1218 H (0-100) pg/ml CBC 07/21/21 07/22/21 Range/Units 16:43 07:05 WBC 5.61 5.10 (4.8-10.8) K/uL RBC 3.84 L 3.48 L (4.7-6.1) M/uL Hgb 11.5 L 10.8 L (14.0-18.0) g/dL Hct 34.8 L 31.6 L (42-52) % Plt Count 173 151 (130-400) K/uL Neut # (Auto) 3.35 (1.4-6.5) K/uL Lymph # (Auto) 1.34 (1.2-3.4) K/uL [place] # (Auto) 0.57 (0.11-0.59) K/uL Eos # (Auto) 0.28 (0-0.5) K/uL Baso # (Auto) 0.03 (0-0.2) K/uL Comprehensive Metabolic Panel 07/21/21 07/22/21 Range/Units 16:43 07:05 Sodium 135 L 137 (136-145) mmol/L Potassium 3.0 L 3.5 (3.5-5.1) mmol/L Chloride 100 104 (98-107) mmol/L Carbon Dioxide 27 27 (21-32) mmol/L BUN 16 14 (6-23) mg/dl Creatinine 1.18 1.08 (0.6-1.4) mg/dl Glucose 145 H 83 (70-99(Fasting)) mg/dl Calcium 9.4 9.3 (8.5-10.1) mg/dl AST 22 (13-39) U/L ALT 29 (7-52) U/L Alkaline Phosphatase 266 H (34-104) U/L Total Protein 7.5 (6.0-8.3) gm/dl Albumin 4.1 (3.4-5.0) gm/dl Intake and Output 07/21/21 07/22/21 07/22/21 22:59 06:59 14:59 Intake Total 220 / 220 Output Total 500 / 1150 650 / 1150 Balance -280 / -930 -650 / -930 Intake: IV 100 / 100 Potassium Chloride / Wtr 10 meq 100 / 100 In 100 ml @ 100 mls/hr IV ONE ONE Rx#:[id number] Oral 120 / 120 Output: Urine 500 / 1150 650 / 1150 Other: Weight 165 kg 72.5 kg Weight Measurement Method Stated by Patient Built in [facility] Patient Weight 07/23/21 06:59 Weight 72.5 kg Diagnostic Findings Echo 07/22/2021 PENDING Echo 2018 LVEF 55 to 60% no wall motion abnormalities, borderline LVH with sigmoid septum Moderate mitral annular calcification with mild MS and trace MR Moderate left atrial enlargement Negative saline contrast for intra-atrial shunt (1) Atrial fibrillation Atrial fibrillation type: unspecified Qualified Code(s): I48.91 - Unspecified atrial fibrillation
[2021-07-22 08:52] LABS: Lyme Ab IgG w/WB Rflx Positive (Negative); Lyme Ab IgM w/WB Rflx Negative (Negative)
[2021-07-22] MEDS ORDERED: POTASSIUM CHLORIDE 10 MEQ TABCR PO SCH (09:00)
[2021-07-22] MEDS ORDERED: FUROSEMIDE INJ 20 MG/2 ML VIAL IV SCH ×2 (09:00→17:00)
[2021-07-22] MEDS: POTASSIUM CHLORIDE CRTAB 20 MEQ TABCR PO SCH ×2 (09:08→17:20)
[2021-07-22] MEDS ORDERED: lisinopril 10 MG TAB PO SCH (09:30)
[2021-07-22] MEDS ORDERED: POTASSIUM CHLORIDE CRTAB 20 MEQ TABCR PO STA (09:30)
[2021-07-22] MEDS ORDERED: LOSARTAN POTASSIUM 25 MG TAB PO SCH (10:00)
[2021-07-22] MEDS ORDERED: FUROSEMIDE INJ 20 MG/2 ML VIAL IV ONE (10:06)
--- NOTE | 2021-07-22 10:22 | Gastrointestinal Consultation ---
Date of Consultation July 22, 2021 Assessment & Plan (1) Anemia: (2) Fecal occult blood test positive: Pt is a 89 yo male admitted with CHF, volume overload, currently seen for anemia and hx of FOBT + stools in outpt setting. His Hgb had been around 10 since April. He denies abd pain, n/v, appetite/weight loss, or perez s/s of rectal bleeding or melena. He is on Eliquis for Afib, no ASA or NSAIDs. Unsure of colonoscopy result he had "years ago". - Monitor blood ct and transfuse prn - Monitor for further s/s of GI bleeding - Discussed benefits vs risk of endoscopy evaluations (EGD/Colonoscopy) with pt. Would recommend optimization of his heart function and management of his CHF before we consider endoscopies. Also Eliquis ideally should be held for about 3 days prior to endoscopies with anticipated biopsies. He is agreeable to have another evaluation and discussion with us along with his family members after his acute issues are resolved to determine if proceeding with endoscopic evaluations would be in his best interest. - Pls recall GI prn Supervising Physician Co-Signing Physician Notes I have personally seen and examined the patient with VITO Teran. Her note reflects my exam and findings. I agree with her impression and plan. No signs of active high grade GI bleeding. No indication for endoscopic eval urgently at this point of time. Out patient f/u. Juan Hudson M.D. History of Present Illness Reason for Consultation: Anemia, FOBT + Requesting Physician: Dr. Eliu William Attending Physician: Dr. Juan Hudson History of Present Illness Pt is a 89 yo male resident of [place], w PMHx of HTN, CKD III, Afib on Eliquis, OA, DM II, TIA, who presented with bilateral LE edema. Found to have fluid overload, CHF w BNP >1000. He is noted to be anemic with Hgb around 10 since 04/2021. BUN/Cr normal. Plt normal. INR 1.3. FOBT done in outpt setting was positive thus GI was consulted. Pt states that his stools are usually dark bown in color. Denies any perez rectal bleeding. Also denies abd pain, n/v, appetite or weight loss. He recalled having colonoscopy "years ago" but unsure of results. Denies known hx of PUD or GI malignancy in the family. Is on Eliquis for Afib, no ASA and takes Tylenol generally to help him sleep, but denies uses of NSAIDs. Allergies Allergy/AdvReac Type Severity Reaction Status Date / Time pollen extracts Allergy Unknown ON MED LIST Verified 07/21/21 17:39 [id number] Reductase Allergy Unknown ON MED LIST Verified 07/21/21 17:39 Inhibitor Home Medications Medication Instructions Recorded Confirmed Type ketoconazole 2 % topical cream 1 applic TOPICAL BID PRN 06/14/18 07/21/21 History triamcinolone acetonide 55 mcg 1 spray INTRANASAL BID PRN 06/14/18 07/21/21 History nasal spray aerosol walker (Ultra-Light Rollator) #1 ea 05/20/19 07/21/21 Rx blood sugar diagnostic (OneTouch #100 ea 09/19/19 07/21/21 Rx Ultra Blue Test Strip) multivitamin 1 tab PO DAILY 10/25/19 07/21/21 History glimepiride 1 mg tablet 1 mg PO QAM #90 tab 10/26/20 07/21/21 Rx escitalopram oxalate 10 mg tablet 10 mg PO DAILY 12/28/20 07/21/21 History (Lexapro) Arnicare Gel 1 applic TOPICAL BID PRN 07/21/21 07/21/21 History Beer 1 can PO DAILY PRN 07/21/21 07/21/21 History acetaminophen 500 mg tablet 1,000 mg PO Q6H PRN MDD 3 G 07/21/21 07/21/21 History (Tylenol Extra Strength) apixaban 2.5 mg tablet (Eliquis) 2.5 mg PO BID17 07/21/21 07/21/21 History desloratadine 5 mg tablet 5 mg PO HS 07/21/21 07/21/21 History (Clarinex) loperamide 2 mg capsule 2 mg PO TID PRN 07/21/21 07/21/21 History metoprolol succinate 25 mg 25 mg PO HS 07/21/21 07/21/21 History tablet,extended release 24 hr (Toprol XL) povidone 1.25 % eye drops (Soothe 1 drp OPHTHALMIC (EYE) BID PRN 07/21/21 07/21/21 History Hydration) turmeric root extract 500 mg 500 mg PO TID 07/21/21 07/21/21 History capsule Patient History Medical History Acid reflux Atrial fibrillation on Eliquis BPH (benign prostatic hyperplasia) CKD (chronic kidney disease), stage III Diabetes mellitus, type 2 NIDDM Diverticular disease Hypertension Osteoarthritis Transient ischemic attack (TIA) 05/2018 - [facility] Surgical History History of arthroscopy of right knee History of cataract surgery right cataract. 11/14/2018. 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 Beliefs That Will Affect Care: None marital status: Current Living Situation: Alone current occupational status: retired Other Information That Helps Us Care for You: No Feels Safe at Home: Yes Safety Concerns: Feels Safe At This Time Assistive Devices: Cane, Glasses and Hearing Aid - Bilateral Review of Systems Review of Systems: All systems reviewed & are unremarkable except as noted in HPI & below Physical Exam Constitutional: WD/WN, vitals as above well groomed, cooperative and comfortable Eyes: PERRL, conjunctivae normal, anicteric sclerae ENMT: external ear and nose normal, oropharynx normal Respiratory: normal respiratory effort, lungs clear to auscultation Cardiovascular: RRR HR 67 on tele monitor, + murmur. Generalized non pitting edema on bilateral LE Gastrointestinal (Abdomen): normal bowel sounds, soft, nontender, no hepatosplenomegaly Skin: no rashes, warm and dry no jaundice Psychiatric: A+Ox3, euthymic affect Lymphatic: no lymphedema Results & Data ([facility]) Vital Signs (Past 12 Hours) Vital Signs Temp Pulse Pulse Pulse Resp BP Pulse Ox 07/22/21 09:04 57 L 07/22/21 07:23 36.6 C 43 L 12 182/83 H 07/22/21 03:18 36.6 C 43 L 18 166/90 H 96 07/21/21 23:58 36.8 C 45 L 22 177/76 H 96 07/21/21 23:18 58 L
[2021-07-22 12:07] LABS: Ferritin 162.9 ng/ml (8-388)
--- NOTE | 2021-07-22 18:11 | Hospitalist Progress Note ---
Date of Service July 22, 2021 Assessment & Plan (1) Fluid overload: (2) Bradycardia: (3) Hypokalemia: (4) Anemia: (5) Hypertension: (6) Atrial fibrillation: (7) CKD (chronic kidney disease), stage III: (8) Diabetes mellitus, type 2: (9) Transient ischemic attack (TIA): (10) BPH (benign prostatic hyperplasia): Plan: Patient is 89-year-old male with PMH DM II, CKD III, atrial fibrillation on Eliquis, HTN, TIA, chronic anemia, osteoarthritis, ambulatory dysfunction presented to ER for BLE edema noted for the past several days, increased shortness of breath with walking. Denies chest pain. Echo from 2019: EF: 55- 60%, mild mitral stenosis, trace mitral regurgitation. In ER BP 193/79, P: 46, 95% on room air. BNP 1218. High-sensitivity troponin not significantly elevated.CXR: Small left pleural effusion (1) Acute diastolic CHF with valvular heart disease- Echo reviewed EF 50-55% with mild- mod MR with mod-sev TR with biatrial dilatation. BNP 1200. Continue iv lasix, monitor daily weight, volume status. Follow up labs. Cardio following (2) Paroxysmal A fib with slow ventricular response- BB on hold. Lyme IgG positive, western blot pending. Cardio following. Monitor on tele (3) Hypokalemia: Resolved with repletion (4) Anemia: H/o anemia outpatient has been being followed. Outpatient hemoglobin 10 since 04/2021. Had reported + FOBT outpatient. - Seen by GI- recommended OP f/u. No active bleeding. (5) Hypertension: BP was elevated this morning, now normalized on low dose lisinopril- monitor (6) Atrial fibrillation:Continue Eliquis; holding BB for now given bradycardia (7) CKD (chronic kidney disease), stage III: Cr: 1.08. Baseline 1.2-1.3; monitor renal functions, avoid nephrotoxic agent when possible (8) Diabetes mellitus, type 2: A1c: 6.4 on 05/13/2021; hold oral meds; SSI (9) H/o TIA- on Eliquis (10) BPH- Outpatient [employer] list has finasteride however is not listed on the [facility] [employer] rec DVT Prophylaxis- Eliquis Dispo- actively diuresing with iv lasix; monitoring bradycardia Admission and Anticipated Discharge Date Admission Date: July 21, 2021 Subjective He feels fine. Denies any chest pain, shortness of breath, nausea, vomiting. Legs still swollen. Physical Exam Physical Exam: General: Lying comfortably in bed, not in distress, on room air HEENT: EOMI, AIDE, MMM Chest: Clear breath sounds bilaterally, no wheezes or crackles CVS: Regular rate and rhythm, normal heart sounds, no murmur Abdomen: Soft, non tender, not distended, normal bowel sounds Neuro: Awake, alert, oriented, conversing well, non focal Extremities: LE edema + Results & Data Results & Data ([facility]) Vital Signs (Past 12 Hours) Vital Signs Temp Pulse Pulse Resp BP Pulse Ox 07/22/21 17:03 36.9 C 74 18 120/66 97 07/22/21 11:30 36.6 C 62 18 134/79 98 07/22/21 11:17 63 07/22/21 09:04 57 L 07/22/21 07:23 36.6 C 43 L 12 182/83 H Laboratory Results Short CBC 07/22/21 Range/Units 07:05 WBC 5.10 (4.8-10.8) K/uL Hgb 10.8 L (14.0-18.0) g/dL Hct 31.6 L (42-52) % Plt Count 151 (130-400) K/uL BMP 07/22/21 07:05 Sodium 137 Potassium 3.5 Chloride 104 Carbon Dioxide 27 BUN 14 Creatinine 1.08 Glucose 83 Calcium 9.3 Medications Administered Current Inpatient Medications Acetaminophen (Acetaminophen 325 Mg Tab) 650 mg PO Q4H PRN PRN Reason: Pain or Fever Stop: 08/20/21 21:19 Apixaban (Apixaban 2.5 Mg Tab) 2.5 mg PO BID17 [facility] Stop: 08/21/21 08:59 Last Admin: 07/22/21 17:15 Dose: 2.5 mg Documented by: Artificial Tears (Artificial Tears) 1 drops OP BID PRN PRN Reason: Dry Eyes Stop: 08/20/21 21:40 Dextrose (Dextrose 50% 50 Ml Syringe) 25 - 50 ml IV UD PRN; Protocol PRN Reason: Hypoglycemia Protocol Stop: 08/20/21 21:19 Escitalopram Oxalate (Escitalopram Oxalate 10 Mg Tab) 10 mg PO DAILY [facility] Stop: 08/21/21 08:59 Last Admin: 07/22/21 07:29 Dose: 10 mg Documented by: Furosemide (Furosemide Inj 20 Mg/2 Ml Vial) 40 mg IV BID17 [facility] Stop: 08/21/21 16:59 Last Admin: 07/22/21 17:21 Dose: 40 mg Documented by: Glucagon (Glucagon For Inj 1 Mg Vial) 1 mg SQ UD PRN; Protocol PRN Reason: Hypoglycemia Protocol Stop: 08/20/21 21:19 Glucose (Glucose 10 Tabs/Tube) 4 - 8 tabs PO UD PRN; Protocol PRN Reason: Hypoglycemia Protocol Stop: 08/20/21 21:19 Glucose (Glucose 40% Gel 15 Gm Tube) 15 - 30 gm PO UD PRN; Protocol PRN Reason: Hypoglycemia Protocol Stop: 08/20/21 21:19 Hydralazine HCl (Hydralazine 10 Mg Tab) 5 mg PO Q6H PRN PRN Reason: Hypertension Stop: 08/20/21 19:57 Last Admin: 07/21/21 20:27 Dose: 5 mg Documented by: Insulin Aspart (Insulin Aspart Per Unit) 0 units SC ACHS [facility] Stop: 08/20/21 21:19 Last Admin: 07/22/21 17:17 Dose: 3 units Documented by: Lisinopril (Lisinopril 10 Mg Tab) 10 mg PO QAM [facility] Stop: 08/21/21 09:29 Last Admin: 07/22/21 10:28 Dose: 10 mg Documented by: Loratadine (Loratadine 10 Mg Tab) 5 mg PO HS [facility] Stop: 08/21/21 20:59 Miscellaneous (Carbohydrates For Hypoglycemia ) 15 - 30 gm PO UD PRN PRN Reason: Hypoglycemia Protocol Stop: 08/20/21 21:19 Multivitamins (Multivitamin Tab) 1 tab PO QAM [facility] Stop: 08/21/21 08:59 Last Admin: 07/22/21 07:29 Dose: 1 tab Documented by: Pantoprazole Sodium (Pantoprazole 40 Mg Tab) 40 mg PO QAM [facility] Stop: 08/22/21 08:59 Polyethylene Glycol (Polyethylene (Miralax) 17 Gm Pack) 17 gm PO DAILY PRN PRN Reason: Constipation Stop: 08/20/21 21:19 Potassium Chloride (Potassium Chloride Crtab 20 Meq Tabcr) 20 meq PO BID17 [facility] Stop: 08/21/21 08:59 Last Admin: 07/22/21 17:20 Dose: 20 meq Documented by: Triamcinolone Acetonide (Triamcinolone Acet Nasal [place] 10.8ml Btl) 1 sprays MAGUE BID PRN PRN Reason: Congestion Stop: 08/20/21 21:19 (1) Atrial fibrillation Atrial fibrillation type: unspecified Qualified Code(s): I48.91 - Unspecified atrial fibrillation
[2021-07-22] MEDS: LORATADINE 10 MG TAB PO SCH (20:20)
[2021-07-22] MEDS ORDERED: METOPROLOL SUCC 25MG EXT REL TAB PO SCH (21:00)
--- NOTE | 2021-07-23 05:58 | Electrocardiogram Report ---
Test Reason : Blood Pressure : / mmHG Vent. Rate : 045 BPM Atrial Rate : 288 BPM P-R Int : 000 ms QRS Dur : 094 ms QT Int : 478 ms P-R-T Axes : 000 -30 021 degrees QTc Int : 413 ms Atrial fibrillation with slow ventricular response Left axis deviation Nonspecific ST and T wave abnormality Abnormal ECG When compared with ECG of 14-JUN-2018 13:09, Atrial fibrillation has replaced Sinus rhythm Vent. rate has decreased BY 23 BPM Nonspecific T wave abnormality now evident in Anterior leads Confirmed by Tan Prabhakar ([id number]) on 07/23/2021 5:57:57 AM Referred By: VIVIENNE ALBARRAN Confirmed By:Tan Prabhakar
--- NOTE | 2021-07-23 06:16 | Electrocardiogram Report ---
Test Reason : Blood Pressure : / mmHG Vent. Rate : 057 BPM Atrial Rate : 049 BPM P-R Int : 000 ms QRS Dur : 098 ms QT Int : 468 ms P-R-T Axes : 000 -27 058 degrees QTc Int : 455 ms Poor data quality, interpretation may be adversely affected Atrial fibrillation with slow ventricular response Possible Lateral infarct , age undetermined Abnormal ECG When compared with ECG of 21-JUL-2021 16:49, Nonspecific T wave abnormality now evident in Inferior leads Confirmed by Tan Prabhakar ([id number]) on 07/23/2021 6:15:31 AM Referred By: VIVIENNE ALBARRAN Confirmed By:Tan Prabhakar
[2021-07-23 07:19] LABS: BUN Creatinine Ratio 13.3 (10-20); Calcium 9.2 mg/dl (8.5-10.1); Creatinine Clr Calc Pharmacy 33.4 ml/min; Est GFR (African American) 50.3 ml/min; Est GFR (Non-African American) 43.4 ml/min; Magnesium 1.6 mg/dl (1.7-2.4); Potassium 3.1 mmol/L (3.5-5.1)
[2021-07-23] MEDS ORDERED: POTASSIUM CHLORIDE CRTAB 20 MEQ TABCR PO STA (07:25)
--- NOTE | 2021-07-23 08:45 | Cardiology Progress Note ---
Date of Service July 23, 2021 Assessment & Plan (1) New onset of congestive heart failure: (2) Atrial fibrillation: (3) Bradycardia: (4) HTN, goal below 140/90: (5) Anemia: Plan: Case discussed with Dr. Lucas. Improving HR. Lyme titer IgG positive. Awaiting other pending serologies - Continue to hold metoprolol. Labile HTN- has been low at PCP office but now averaging in the 150-160s systolic. Lisinopril 10 mg daily started yesterday but held this am due to renal function decline. Renal decline likely due to hypovolemia. Patient responded well to increased dose of IV Lasix yesterday- now euvolemic, likely hypovolemic. Hold Lasix for now- not normally on loop diuretic at home. Repeat BMP tomorrow am to reassess renal function and electrolytes- should renal function start to improve and blood pressures elevate will consider restarting ACEi Potassium goal of 4.0 and Mag goal of 2.0- replete as necessary. Patient given 60 meq of KCL this am per primary team for a K of 3.1. Patient may benefit from addition of Aldactone. Will defer to primary team regarding anemia- recommend hgb goal >10 Admission and Anticipated Discharge Date Admission Date: July 21, 2021 Supervising Physician Co-Signing Physician Notes I have seen and examined the patient. I reviewed the medical record and discussed the case with the nurse practitioner. I agree with the plan as outlined above. Subjective 89-year-old male. Initially presented to the emergency department due to bradycardia and shortness of breath. Metoprolol has been discontinued. Blood pressures have been labile however in hospital have been averaging in the 170s to 190s systolic. Lisinopril was started yesterday 07/22. Patient appeared hypervolemic on exam and Lasix was increased to 40 mg twice daily yesterday. Echocardiogram was obtained showing an LVEF of 50 to 55%. Mild to moderate MR and moderate to severe TR was noted on echo. Lyme IgG positive- western blot pending. Chart and telemetry reviewed. Patient seen and examined. Upon entrance into the room patient sitting on the edge of the bed without complaint. Feeling improved compared to yesterday- no further confusion. Leg edema resolved. No chest pain, shortness of breath, or weakness. Ambulated in the hallway yesterday with minimal assistance per the patient. HR improving on monitor. Tele: Rate controlled afib 50-70s I&O: -3.8 L Weight: 81.1 kg >> 75.5 kg Renal function declined this am after increased dose of Lasix. Sodium and k low. Physical Exam Physical Exam: General: No acute distress. A+Ox3. HEENT: Normocephalic. Atraumatic. Conjunctiva and sclera clear. NECK: No carotid bruits. No JVD. Carotid upstrokes are brisk. Heart: RRR. S1 and S2 noted. + systolic murmur Lungs Clear BL Abdomen: Normal bowel sounds. Soft. Nontender. Extremities: No edema. No clubbing or cyanosis. Pulses: radial=2/4, posterior tibial=2/4, dorsalis pedis = 2/4. NEURO: No focal deficits. PSYCH: Normal. Results & Data ([facility]) Vital Signs (Past 12 Hours) Vital Signs Temp Pulse Pulse Resp BP Pulse Ox Pulse Ox 07/23/21 07:44 36.5 C 52 L 16 153/70 H 94 07/23/21 06:49 60 07/23/21 03:00 36.8 C 47 L 19 158/76 H 95 07/22/21 23:14 36.7 C 49 L 20 156/89 H 96 07/22/21 21:20 95 Laboratory Results Cardiac Enzymes 07/22/21 Range/Units 11:05 Troponin I High Sens 15.2 (0-20) pg/ml Comprehensive Metabolic Panel 07/23/21 Range/Units 06:24 Sodium 135 L (136-145) mmol/L Potassium 3.1 L (3.5-5.1) mmol/L Chloride 100 (98-107) mmol/L Carbon Dioxide 27 (21-32) mmol/L BUN 19 (6-23) mg/dl Creatinine 1.43 H D (0.6-1.4) mg/dl Glucose 93 (70-99(Fasting)) mg/dl Calcium 9.2 (8.5-10.1) mg/dl Intake and Output 07/22/21 07/23/21 07/23/21 22:59 06:59 14:59 Intake Total 200 / 400 Output Total 1050 / 3300 1350 / 3300 750 / 750 Balance -850 / -2900 -1350 / -2900 -750 / -750 Intake: Oral 200 / 400 Output: Urine 1050 / 3300 1350 / 3300 750 / 750 Other: Weight 75.5 kg Weight Measurement Method Standing Scale (1) Atrial fibrillation Atrial fibrillation type: unspecified Qualified Code(s): I48.91 - Unspecified atrial fibrillation
[2021-07-23] MEDS: MAGNESIUM OXIDE 400 MG TAB PO SCH ×2 (08:46→21:25)
[2021-07-23] MEDS: APIXABAN 2.5 MG TAB PO SCH ×2 (08:47→16:52)
[2021-07-23] MEDS: PANTOprazole 40 MG TAB PO SCH (08:47)
[2021-07-23] MEDS: MULTIVITAMIN TAB PO SCH (08:47)
[2021-07-23] MEDS: ESCITALOPRAM OXALATE 10 MG TAB PO SCH (08:47)
[2021-07-23] MEDS: INSULIN ASPART PER UNIT SC SCH ×4 (08:48→20:50)
[2021-07-23] MEDS: POTASSIUM CHLORIDE CRTAB 20 MEQ TABCR PO SCH ×2 (10:18→17:06)
--- NOTE | 2021-07-23 11:38 | Hospitalist Progress Note ---
Date of Service July 23, 2021 Assessment & Plan (1) Fluid overload: (2) Bradycardia: (3) Hypokalemia: (4) Anemia: (5) Hypertension: (6) Atrial fibrillation: (7) CKD (chronic kidney disease), stage III: (8) Diabetes mellitus, type 2: (9) Transient ischemic attack (TIA): (10) BPH (benign prostatic hyperplasia): Plan: Patient is 89-year-old male with PMH DM II, CKD III, atrial fibrillation on Eliquis, HTN, TIA, chronic anemia, osteoarthritis, ambulatory dysfunction presented to ER for BLE edema noted for the past several days, increased shortness of breath with walking. Denies chest pain. Echo from 2019: EF: 55- 60%, mild mitral stenosis, trace mitral regurgitation. In ER BP 193/79, P: 46, 95% on room air. BNP 1218. High-sensitivity troponin not significantly elevated.CXR: Small left pleural effusion (1) New onset acute diastolic CHF with valvular heart disease- Echo reviewed EF 50-55% with mild- mod MR with mod-sev TR with biatrial dilatation. BNP 1200. S/p IV lasix with significant improvement and now with ALIA. Lasix on hold. Not on diuretics at home. Monitor daily weight, volume status. Follow up labs in am. Cardio following (2) Paroxysmal A fib with slow ventricular response- BB on hold. Lyme IgG positive, western blot pending. Cardio following. Monitor on tele (3) Hypokalemia: Repleted. Continue po supplementation (4) Anemia: H/o anemia outpatient has been being followed. Outpatient hemoglobin 10 since 04/2021. Had reported + FOBT outpatient. - Seen by GI- recommended OP f/u. No active bleeding. (5) Hypertension: Switch lisinopril to HLZ given ALIA. (6) Atrial fibrillation:Continue Eliquis; holding BB for now given bradycardia (7) ALIA on CKD III: Cr: 1.08->1.43 with lasix. Hold lasix, hold lisinopril. Avoid nephrotoxic agent when possible. Recheck labs in am (8) Diabetes mellitus, type 2: A1c: 6.4 on 05/13/2021; hold oral meds; SSI (9) H/o TIA- on Eliquis (10) BPH- Outpatient [employer] [facility] list has finasteride however is not listed on the [facility] rec (11) Hypomagnesemia- Repleted. Recheck in am DVT Prophylaxis- Eliquis Dispo- Follow up labs in am for ALIA, diuresis on hold. Admission and Anticipated Discharge Date Admission Date: July 21, 2021 Subjective Feels good. No new issues. He is pleased his leg edema is significantly improved. States his left pedal edema has been there since age 23 when he was in [place]. He ambulated around the [place] with his cane and felt fine- denied any chest pain or shortness of breath. Physical Exam Physical Exam: General: Lying comfortably in bed, not in distress, on room air HEENT: EOMI, AIDE, MMM Chest: Clear breath sounds bilaterally, no wheezes or crackles CVS: Regular rate and rhythm, normal heart sounds, no murmur Abdomen: Soft, non tender, not distended, normal bowel sounds Neuro: Awake, alert, oriented, conversing well, non focal Extremities: Trace LE edema. Chronic left pedal dorsal edema unchanged. Results & Data Results & Data ([facility]) Vital Signs (Past 12 Hours) Vital Signs Temp Pulse Pulse Resp BP Pulse Ox 07/23/21 07:44 36.5 C 52 L 16 153/70 H 94 07/23/21 06:49 60 07/23/21 03:00 36.8 C 47 L 19 158/76 H 95 Laboratory Results [facility] 07/23/21 06:24 Sodium 135 L Potassium 3.1 L Chloride 100 Carbon Dioxide 27 BUN 19 Creatinine 1.43 H D Glucose 93 Calcium 9.2 Medications Administered Current Inpatient Medications Acetaminophen (Acetaminophen 325 Mg Tab) 650 mg PO Q4H PRN PRN Reason: Pain or Fever Stop: 08/20/21 21:19 Apixaban (Apixaban 2.5 Mg Tab) 2.5 mg PO BID17 [facility] Stop: 08/21/21 08:59 Last Admin: 07/23/21 08:47 Dose: 2.5 mg Documented by: Artificial Tears (Artificial Tears) 1 drops OP BID PRN PRN Reason: Dry Eyes Stop: 08/20/21 21:40 Dextrose (Dextrose 50% 50 Ml Syringe) 25 - 50 ml IV UD PRN; Protocol PRN Reason: Hypoglycemia Protocol Stop: 08/20/21 21:19 Escitalopram Oxalate (Escitalopram Oxalate 10 Mg Tab) 10 mg PO DAILY [facility] Stop: 08/21/21 08:59 Last Admin: 07/23/21 08:47 Dose: 10 mg Documented by: Furosemide (Furosemide Inj 20 Mg/2 Ml Vial) 40 mg IV BID17 [facility] Stop: 08/21/21 16:59 Last Admin: 07/22/21 17:21 Dose: 40 mg Documented by: Glucagon (Glucagon For Inj 1 Mg Vial) 1 mg SQ UD PRN; Protocol PRN Reason: Hypoglycemia Protocol Stop: 08/20/21 21:19 Glucose (Glucose 10 Tabs/Tube) 4 - 8 tabs PO UD PRN; Protocol PRN Reason: Hypoglycemia Protocol Stop: 08/20/21 21:19 Glucose (Glucose 40% Gel 15 Gm Tube) 15 - 30 gm PO UD PRN; Protocol PRN Reason: Hypoglycemia Protocol Stop: 08/20/21 21:19 Hydralazine HCl (Hydralazine 10 Mg Tab) 5 mg PO Q6H PRN PRN Reason: Hypertension Stop: 08/20/21 19:57 Last Admin: 07/21/21 20:27 Dose: 5 mg Documented by: Hydralazine HCl (Hydralazine Hcl 25 Mg Tab) 25 mg PO Q8 [facility] Stop: 08/22/21 13:59 Insulin Aspart (Insulin Aspart Per Unit) 0 units SC ACHS [facility] Stop: 08/20/21 21:19 Last Admin: 07/23/21 08:48 Dose: 2 units Documented by: Lisinopril (Lisinopril 10 Mg Tab) 10 mg PO QAM [facility] Stop: 08/21/21 09:29 Last Admin: 07/22/21 10:28 Dose: 10 mg Documented by: Loratadine (Loratadine 10 Mg Tab) 5 mg PO HS [facility] Stop: 08/21/21 20:59 Last Admin: 07/22/21 20:20 Dose: 5 mg Documented by: Magnesium Oxide (Magnesium Oxide 400 Mg Tab) 400 mg PO BID [facility] Stop: 08/22/21 08:59 Last Admin: 07/23/21 08:46 Dose: 400 mg Documented by: Miscellaneous (Carbohydrates For Hypoglycemia ) 15 - 30 gm PO UD PRN PRN Reason: Hypoglycemia Protocol Stop: 08/20/21 21:19 Multivitamins (Multivitamin Tab) 1 tab PO QAM [facility] Stop: 08/21/21 08:59 Last Admin: 07/23/21 08:47 Dose: 1 tab Documented by: Pantoprazole Sodium (Pantoprazole 40 Mg Tab) 40 mg PO QAM [facility] Stop: 08/22/21 08:59 Last Admin: 07/23/21 08:47 Dose: 40 mg Documented by: Polyethylene Glycol (Polyethylene (Miralax) 17 Gm Pack) 17 gm PO DAILY PRN PRN Reason: Constipation Stop: 08/20/21 21:19 Potassium Chloride (Potassium Chloride Crtab 20 Meq Tabcr) 20 meq PO BID17 [facility] Stop: 08/21/21 08:59 Last Admin: 07/23/21 10:18 Dose: 20 meq Documented by: Triamcinolone Acetonide (Triamcinolone Acet Nasal [place] 10.8ml Btl) 1 sprays MAGUE BID PRN PRN Reason: Congestion Stop: 08/20/21 21:19 (1) Atrial fibrillation Atrial fibrillation type: unspecified Qualified Code(s): I48.91 - Unspecified atrial fibrillation
[2021-07-23] MEDS: hydrALAZINE HCL 25 MG TAB PO SCH ×2 (13:28→21:25)
[2021-07-23] MEDS: TAMSULOSIN HCL 0.4 MG CAP PO SCH (18:40)
[2021-07-23] MEDS: LORATADINE 10 MG TAB PO SCH (21:25)
[2021-07-24] MEDS: hydrALAZINE HCL 25 MG TAB PO SCH ×2 (05:58→14:15)
[2021-07-24] MEDS: MAGNESIUM OXIDE 400 MG TAB PO SCH (08:31)
[2021-07-24] MEDS: ESCITALOPRAM OXALATE 10 MG TAB PO SCH (08:32)
[2021-07-24] MEDS: TAMSULOSIN HCL 0.4 MG CAP PO SCH (08:32)
[2021-07-24] MEDS: MULTIVITAMIN TAB PO SCH (08:32)
[2021-07-24] MEDS: PANTOprazole 40 MG TAB PO SCH (08:32)
[2021-07-24] MEDS: APIXABAN 2.5 MG TAB PO SCH (08:32)
[2021-07-24] MEDS: POTASSIUM CHLORIDE CRTAB 20 MEQ TABCR PO SCH (08:38)
[2021-07-24] MEDS: INSULIN ASPART PER UNIT SC SCH ×2 (08:38→12:34)
[2021-07-24 08:47] LABS: BUN Creatinine Ratio 19.7 (10-20); Calcium 9.5 mg/dl (8.5-10.1); Creatinine Clr Calc Pharmacy 39.1 ml/min; Est GFR (Non-African American) 52.6 ml/min; Magnesium 1.7 mg/dl (1.7-2.4); Potassium 3.7 mmol/L (3.5-5.1)
[2021-07-24] MEDS ORDERED: FINASTERIDE 5 MG TAB PO SCH (09:00)
[2021-07-24] MEDS ORDERED: ASPIRIN 81 MG ECTAB PO SCH (09:00)
[2021-07-24 09:41] LABS: Hematocrit (blood only) 33.4 % (42-52); Hemoglobin 11.4 g/dL (14.0-18.0)
--- NOTE | 2021-07-24 12:22 | Cardiology Progress Note ---
Date of Service July 24, 2021 Assessment & Plan (1) Atrial fibrillation: (2) Bradycardia: (3) HTN, goal below 140/90: Plan: Stable for discharge off of metoprolol. Continue Eliquis 2.5 mg BID.Hgb stable. Continue outpatient losartan 100 mg daily, HCTZ 12.5 mg daily, finasteride. Appears hydralazine is a new medication 25 mg PO every 8 hours. Admission and Anticipated Discharge Date Admission Date: July 21, 2021 Subjective Pt seen in cardiology follow up. He feels well. No complaints. Telemetry reveals AF in the 70s. Physical Exam Constitutional: WD/WN, vitals as above Respiratory: normal respiratory effort, lungs clear to auscultation Cardiovascular: Rate/Rhythm: + irregularly irregular Heart Sounds: no murmur Extremities: no edema Gastrointestinal (Abdomen): normal bowel sounds, soft, nontender, no hepatosplenomegaly Neurologic: PERRL, EOMI, accommodation nl, no face palsy, no dysarthria Results & Data ([facility]) Vital Signs (Past 12 Hours) Vital Signs Temp Pulse Resp BP Pulse Ox 07/24/21 12:04 36.5 C 59 L 20 132/72 92 07/24/21 08:03 36.8 C 79 18 130/70 95 07/24/21 03:55 36.4 C L 87 20 116/72 95 Laboratory Results Cardiac Enzymes 07/24/21 07/24/21 Range/Units 09:31 10:31 B-Natriuretic Peptide Cancelled 500 H Coagulation 07/24/21 07/24/21 Range/Units 09:31 10:31 B-Natriuretic Peptide Cancelled 500 H CBC 07/24/21 Range/Units 09:31 Hgb 11.4 L (14.0-18.0) g/dL Hct 33.4 L (42-52) % Comprehensive Metabolic Panel 07/24/21 Range/Units 08:08 Sodium 134 L (136-145) mmol/L Potassium 3.7 (3.5-5.1) mmol/L Chloride 99 (98-107) mmol/L Carbon Dioxide 25 (21-32) mmol/L BUN 24 H (6-23) mg/dl Creatinine 1.22 (0.6-1.4) mg/dl Glucose 129 H (70-99(Fasting)) mg/dl Calcium 9.5 (8.5-10.1) mg/dl Intake and Output 07/23/21 07/24/21 07/24/21 22:59 06:59 14:59 Intake Total 360 / 810 250 / 810 Output Total 975 / 1825 200 / 200 Balance 360 / -1015 -725 / -1015 -200 / -200 Intake: Oral 360 / 810 250 / 810 Output: Urine 975 / 1825 200 / 200 Other: # Unmeasured Voids 250 Weight 75.3 kg Weight Measurement Method Standing Scale Diagnostic Findings TTecho performed 07/22/21: LVEF 50-55% Moderate concentric LVH Severe LA enlargement Moderate RA enlargement AV sclerosis without stenosis Mild to moderate MR Moderate to severe TR (1) Atrial fibrillation Atrial fibrillation type: unspecified Qualified Code(s): I48.91 - Unspecified atrial fibrillation
--- NOTE | 2021-07-24 14:51 | Discharge Summary ---
Date of Service July 24, 2021 Admission HPI Per Admitting Provider Patient is 89-year-old male with PMH DM II, CKD III, atrial fibrillation on Eliquis, HTN, TIA, chronic anemia, osteoarthritis, ambulatory dysfunction presented to ER for BLE edema. Patient reports last several days has noticed increasing edema bilateral ankles and feet. Patient reports has been getting short of breath with walking. Reports gets fatigued easily with walking. Denies chest pain. Patient reports a couple weeks ago was having some dizziness with standing. He denies any current dizziness. He uses walker to assist in ambulation. Patient seen by PCP today and noted to have edema lower extremities and referred to ER. Patient has been having ongoing anemia had positive Hemoccult test outpatient. Patient denies any perez red blood per rectum, hematuria. He reports this stool appears dark brown in coloration. Previously patient had denied colonoscopy. His hemoglobin has been 10-10.2 since 04/2021. He reports he would be willing to have a colonoscopy now. Patient [facility] outpatient notes and med rec reviewed. He was previously on losartan 100mg daily and HCTZ 12.5mg daily. The med rec from the [facility] does not have losartan or HCTZ listed as being administered. Denies fever/chills, diaphoresis, N/V/D/C, POLLARD, syncope, vision changes, neck pain, CP, palpitations, cough, sore throat, choking, otalgia, rhinorrhea, abdominal pain, paresthesias, increased weakness, extremity erythema, extremity pain, rashes, urinary symptoms. Admission Exam Per Admitting Provider General: no acute distress, WDWN elderly male Head: normocephalic, atraumatic Eyes: conjunctiva non-injected, anicteric ENT: hard of hearing, normal inspection external ears, nose, mucous membranes moist Neck: supple, trachea midline Lungs: no respiratory distress, diminished breath sounds left base, otherwise no wheezing/rhonchi/rales CV: irregularly irregular, rate 50's-60's,+ murmur, 2+ pretibial edema Abd: normal BS, soft, +ventral hernia, non-tender Ext: no cyanosis, no calf tenderness Neuro: A&O x 3, no focal deficits noted, normal affect Skin: warm, dry Principal Diagnosis Atrial fibrillation Bradycardia Hypertension New onset acute diastolic CHF Discharge Exam GENERAL: Alert and oriented x3. NAD, on RA. HEENT: No pallor, no icterus. Pupils equal, round and reactive to light. Oral mucosa moist. NECK: No JVD, no neck masses. HEART: S1 and S2 heard. irregular rate and rhythm. No murmur, no gallop. RESPIRATORY SYSTEM: Normal AP diameter. No accessory muscle use. No wheezing, no crackles. ABDOMEN: Soft, bowel sounds present, nontender, no distention. CENTRAL NERVOUS SYSTEM: No facial droop. Speech is clear. Obeys simple commands. Moves extremities. EXTREMITIES: No edema, no erythema seen. Discharge Data Allergies Allergy/AdvReac Type Severity Reaction Status Date / Time pollen extracts Allergy Unknown ON MED LIST Verified 07/21/21 17:39 [id number]-GbM Reductase Allergy Unknown ON MED LIST Verified 07/21/21 17:39 Inhibitor Consultations 07/21/21 18:19 ED Decision to Admit Stat 07/22/21 08:00 Consult Cardiology Routine Consult Gastroenterology Routine Hospital Course (1) Fluid overload: (2) Bradycardia: (3) Hypokalemia: (4) Anemia: (5) Hypertension: (6) Atrial fibrillation: (7) CKD (chronic kidney disease), stage III: (8) Diabetes mellitus, type 2: (9) Transient ischemic attack (TIA): (10) BPH (benign prostatic hyperplasia): Patient is 89-year-old male with PMH DM II, CKD III, atrial fibrillation on Eliquis, HTN, TIA, chronic anemia, osteoarthritis, ambulatory dysfunction presented to ER for BLE edema noted for the past several days, increased shortness of breath with walking. Denies chest pain. Echo from 2019: EF: 55- 60%, mild mitral stenosis, trace mitral regurgitation. In ER BP 193/79, P: 46, 95% on room air. BNP 1218. High-sensitivity troponin not significantly elevated.CXR: Small left pleural effusion. He was managed for the following: (1) New onset acute diastolic CHF with valvular heart disease- Echo reviewed EF 50-55% with mild- mod MR with mod-sev TR with biatrial dilatation. BNP 1200. S/p IV lasix with significant improvement and got transient ALIA likely 2/2 hypovolemia from diuresis. Lasix held, Renal function improved. Card evaluated, appreciate recs. c/w home HCTZ and losartan doses. FR 1.8L. f/u PCP komal week and cardio in 2-4 weeks. (2) Paroxysmal A fib with slow ventricular response- BB on hold. Lyme IgG positive, western blot pending. f/u with western blot test as OP w/ PCP. Cardio following. Monitor on tele (3) Hypokalemia: Repleted. Pt not on lasix. (4) Anemia: H/o anemia outpatient has been being followed. Outpatient hemoglobin 10 since 04/2021. Had reported + FOBT outpatient. - Seen by GI- recommended OP f/u. No active bleeding. (5) Hypertension: Optimum control. (6) Atrial fibrillation:Continue Eliquis; holding BB upon DC given bradycardia (7) ALIA on CKD III: resolved. (8) Diabetes mellitus, type 2: A1c: 6.4 on 05/13/2021; hold oral meds; SSI (9) H/o TIA- on Eliquis (10) BPH- c/w home meds. (11) Hypomagnesemia- Repleted. supplement upon DC. DVT Prophylaxis- Eliquis Instructions were communicated to patient's daughter over the phone on the day of discharge. Patient being discharged home with following instruction at the point of discharge: Follow-up with your primary care physician within a week time. Get your blood work CBC and CMP done in a 3-5 days time and have the results forwarded to your primary care physician. Cardiology evaluated you while inpatient, your metoprolol will be discontinued upon discharge due to bradycardia. Your Lyme serology Western blot test is pending, follow-up with the final results with your primary care physician as an outpatient. Follow-up with cardiology as an outpatient in 2 to 4 weeks time. Continue rest of the home medication as it is. You have been added hydralazine 25 mg every 8 hours which is your new medication this time. Maintain heart healthy diet, diabetic diet, and fluid restriction of 1.8 L/day. From your home medication, only metoprolol has been discontinued. Hydralazine and pantoprazole and magnesium supplement has been added. Rest of the medications are as it was. Take your medications as prescribed. Total Time Total Time Spent Total Time Spent (In Minutes): 40 Discharge Plan Discharge Items Patient Disposition: Home - Self-Care Reason For Visit: BRADYCARDIA Discharge Diagnosis: Atrial fibrillation Bradycardia Hypertension New onset acute diastolic CHF Activity: Resume your previous activity Non-emergency contact: Primary Care Provider Call non-emergency contact if: you have any medication questions, your symptoms worsen and your temperature is above 101 Follow-up/Referrals: AVIS, [Primary Care Provider] - Diet: Carb Consistent or DM2 and Heart Healthy Fluids: 1800ml (7 cups) Addtl Attending Provider Instructions: Follow-up with your primary care physician within a week time. Get your blood work CBC and CMP done in a 3-5 days time and have the results forwarded to your primary care physician. Cardiology evaluated you while inpatient, your metoprolol will be discontinued upon discharge due to bradycardia. Your Lyme serology Western blot test is pending, follow-up with the final results with your primary care physician as an outpatient. Follow-up with cardiology as an outpatient in 2 to 4 weeks time. Continue rest of the home medication as it is. You have been added hydralazine 25 mg every 8 hours which is your new medication this time. Maintain heart healthy diet, diabetic diet, and fluid restriction of 1.8 L/day. From your home medication, only metoprolol has been discontinued. Hydralazine and pantoprazole and magnesium supplement has been added. Rest of the medications are as it was. Take your medications as prescribed. Call 911 and go to the Emergency Room if: * You have tightness or pain in your chest that does not go away with rest or Nitroglycerin * You are very short of breath even with rest Call your doctor if any of the following symptoms or problems start or get worse: * Shortness of breath or difficulty breathing * Wake up at night short of breath * Chest pain * Cough * Swelling of your hands, fee, or legs * More fatigued or tired with your normal activity * Palpitations - sudden fast heart beats WEIGHT * Weigh yourself every morning after using the bathroom. * Use the same scale. * Wear the same amount of clothing. * Write your weight down on your chart. * Call your doctor if you gain more than 2-3 pounds in 1-2 days. MEDICATIONS * Use this discharge instruction sheet for instructions. * Take your medications at the time your doctor ordered. * Do not skip a dose of your medicines. * If you miss a dose of medicine, take as soon as possible, but DO NOT DOUBLE A DOSE. * Read your medicine information when you get home. * Know all of the side effects of your medicine. * Call your doctor's office if you have any side effects. * Be sure all of your doctors know what medicine and herbs you take (including cold, flu, and herbal medicine). * Pain Medicine: If you do not get relief from your pain, please call your doctor for help. Take the following with you to your follow-up doctor appointments: * Weight Chart * Medication List * List of questions Do not drink excessive alcohol, beer or wine. Pending Studies at Discharge: No Stand-Alone Forms: My [facility], Smoking Cessation Medications and DC Order Prescriptions: New tamsulosin 0.4 mg Capsule 0.4 mg PO QAM Qty: 30 RF: 0 hydralazine 25 mg Tablet 25 mg PO Q8 Qty: 90 RF: 0 aspirin 81 mg Tablet,Delayed Release (Dr/Ec) 81 mg PO QAM Qty: 30 RF: 0 pantoprazole 40 mg Tablet,Delayed Release (Dr/Ec) 40 mg PO QAM Qty: 30 RF: 0 finasteride [Proscar] 5 mg Tablet 5 mg PO QAM Qty: 30 RF: 0 losartan 100 mg tablet 100 mg PO DAILY Qty: 30 RF: 0 hydrochlorothiazide 12.5 mg tablet 12.5 mg PO DAILY Qty: 30 RF: 0 metformin 500 mg tablet extended release 24 hr 500 mg PO DAILY Qty: 30 RF: 0 magnesium glycinate 100 mg tablet 100 mg PO DAILY Qty: 14 RF: 0 Continued (DME) Ultra-Light Rollator Misc See Rx Instructions .ROUTE .MEDSUPPLY Qty: 1 RF: 0 (DME) blood sugar diagnostic [OneTouch Ultra Blue Test Strip] Strip See Rx Instructions .ROUTE .MEDSUPPLY Qty: 100 RF: 6 glimepiride 1 mg tablet 1 mg PO QAM Qty: 90 RF: 3 multivitamin Tablet 1 tab PO DAILY RF: 0 escitalopram oxalate [Lexapro] 10 mg tablet 10 mg PO DAILY RF: 0 triamcinolone acetonide 55 mcg Aerosol,Adolphus 1 spray INTRANASAL BID PRN (Reason: Congestion) RF: 0 ketoconazole 2 % Cream 1 applic TOPICAL BID PRN (Reason: Itching) RF: 0 Arnicare Gel 1 applic topical BID PRN (Reason: SORENESS/ACHYNESS) RF: 0 loperamide [Imodium] 2 mg Capsule 2 mg PO TID PRN (Reason: Diarrhea) RF: 0 acetaminophen [Tylenol Extra Strength] 500 mg Tablet 1,000 mg PO Q6H MDD 3 G PRN (Reason: Pain) RF: 0 Soothe Hydration 1.25 % Drops 1 drp OPHTHALMIC (EYE) BID PRN (Reason: Dry Eyes) RF: 0 desloratadine [Clarinex] 5 mg tablet 5 mg PO HS RF: 0 Eliquis 2.5 mg tablet 2.5 mg PO [id number] RF: 0 Discontinued turmeric root extract 500 mg Capsule 500 mg PO TID RF: 0 Beer 1 can PO DAILY PRN (Reason: IF REQUESTED) RF: 0 metoprolol succinate [Toprol XL] 25 mg tablet extended release 24 hr 25 mg PO HS RF: 0 Discharge Orders: Discharge Order (Routine); Ordered 07/24/21 Ordered By: Naila Martin Admission Data Admit Date/Time: 07/21/21 19:03 Attending Provider: Naila Martin Admit Provider: Hai Castillo Primary Care Provider: Alysha ALBARRAN Providers: Hai Castillo ; Elliott Lucas ; Juan Hudson
[2021-07-27 14:39] LABS: 18KDIGG Band NON-REACTIVE; 23KDIGG Band NON-REACTIVE; 23KDIGM Band NON-REACTIVE; 28KDIGG Band NON-REACTIVE; 30KDIGG Band NON-REACTIVE; 39KDIGG Band REACTIVE; 39KDIGM Band NON-REACTIVE; 41KDIGG Band NON-REACTIVE; 41KDIGM Band NON-REACTIVE; 45KDIGG Band NON-REACTIVE; 58KDIGG Band REACTIVE; 66KDIGG Band NON-REACTIVE; 93KDIGG Band REACTIVE; Lyme Antibodies, WB IgG NEGATIVE (NEGATIVE); Lyme Antibodies, WB IgM NEGATIVE (NEGATIVE)
== END 2021-07-24 15:55 | disposition home or self-care (01) ==
LOC: ED 16:41 → 2E 19:03 → SUATTDRO 19:03 → INTOOBSV 19:03 → 2E 20:07 → 2S 07-22 10:49